=== PATIENT | male | born 1970 | race Caucasian/White ===

== ENCOUNTER 2020-08-07 19:48 | Emergency (ER) | payer OTHER, BC, SELFPAY ==
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
[2020-08-07 19:50] VITALS: RESP 17
[2020-08-07 19:53] VITALS: BP 143/89; PULSE 88; RESP 18; TEMP 36.6; O2SAT 98
[2020-08-07 20:28] LABS: Glucose Point of Care 124 (65-105)
[2020-08-07] MEDS: diazePAM INJ (*CRX) 10 MG/2 ML SYRINGE 5 MG IV PUSH (20:44)
[2020-08-07] MEDS: KETOROLAC 15 MG/ML VIAL (*BKC) IV PUSH (20:46)
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
[2020-08-07 22:22] VITALS: BP 112/75; PULSE 80; RESP 17; O2SAT 97
== END 2020-08-07 22:20 | disposition home or self-care (01) ==
PROVIDERS: Emergency Provider Emergency Medicine
DX: S39.012A Strain of muscle, fascia and tendon of lower back, initial encounter (principal); I25.10 Atherosclerotic heart disease of native coronary artery without angina pectoris; I10 Essential (primary) hypertension; E11.9 Type 2 diabetes mellitus without complications; Z79.4 Long term (current) use of insulin; Z87.891 Personal history of nicotine dependence; V49.40XA Driver injured in collision with unspecified motor vehicles in traffic accident, initial encounter
CPT/HCPCS: 72131; 82948; 96374; 96375; 99284; J1885; J3360

== ENCOUNTER 2021-05-14 11:17 | Observation (INO) | payer BC, SELFPAY ==
[2021-05-14] VITALS (12 sets, daily range): BP systolic 113–150; BP diastolic 65–100; PULSE 59–88; RESP 12–20; TEMP 36–36.6; O2SAT 97–99; BMI 35.0
--- NOTE | ~2021-05-14 | XR_ITS ---
XR chest 2V DATE: 05/14/2021 11:33 INDICATION: Mid chest pain TECHNIQUE: PA and lateral views COMPARISON: 06/02/2018 two-view chest FINDINGS: Normal heart size. No hilar or mediastinal enlargement. No pulmonary infiltrate or consolidation, pleural effusion or pulmonary vascular congestion or pneumo thorax. Degenerative spurring of the thoracic spine. IMPRESSION: No active cardiopulmonary disease Reviewed, dictated and finalized at location [facility].
--- NOTE | ~2021-05-14 | NM_ITS ---
EXAMINATION: NM los stress w perfusion DATE: 05/15/2021 14:35 INDICATION: Coronary artery disease. Chest pain. TECHNIQUE: Rest images were obtained following intravenous administration of 10.8 mCi Tc99m tetrofosm in (Myoview). The patient was infused intravenously with Lexiscan (Regadenoson). Then, 33.2 mCi Tc99m tetrofosmin (Myoview) was administered intravenously, and stress images were obtained. Data was jairo nstructed into short axis and horizontal and vertical long axis SPECT images. Gated SPECT images were also obtained. COMPARISON: None. FINDINGS: There is no definite reversible or fixed perfusion abnormality to suggest ischemia or infar ction. There is normal left ventricular chamber size, wall motion and ejection fraction. Left ventr icular ejection fraction measures >70%. IMPRESSION: 1. Normal myocardial perfusion at rest and during stress. 2. Left ventricular ejection fraction measuring >70%. Reviewed, dictated and finalized at location [facility].
--- NOTE | 2021-05-14 11:18 | ECG_ITS ---
Measurements Intervals [place] Rate: 84 P: 24 NC: 164 QRS: -9 QRSD: 89 T: -9 QT: 345 QTc: 410 Interpretive Statements SINUS RHYTHM BORDERLINE R WAVE PROGRESSION, ANTERIOR LEADS INFERIOR INFARCT, AGE INDETERMINATE BASELINE ARTIFACT- I, III, AVL ABNORMAL ECG Electronically Signed On 05-14-2021 16:23:13 CDT by Alfa Kay D.O.
[2021-05-14 11:36] LABS: Basophils Absolute Auto 0.1 K/mm3 (0.0-0.1); Basophils Percent Auto 0.6 % (0.2-1.2); Eosinophils Absolute Auto 0.2 K/mm3 (0-0.3); Eosinophils Percent Auto 2.5 % (0-4.4); Hematocrit 51.3 % (42.0-52.0); Hemoglobin 17.1 g/dL (14.0-18.0); Immature Granulocyte Absolute 0.06 K/mm3 (0.00-0.031); Immature Granulocyte Percent A 0.8 % (0-0.5); Lymphocytes Absolute Auto 1.99 K/mm3 (0.9-3.2); Lymphocytes Percent Auto 25.2 % (18.3-44.2); Mean Corpuscular HGB Conc 33.3 g/dl (32-36); Mean Corpuscular Hemoglobin 29.9 pg (26-34); Mean Corpuscular Volume 89.7 fl (80-100); Mean Platelet Volume 10.5 fl (7.4-10.4); Monocytes Absolute Auto 0.5 K/mm3 (0.1-0.6); Monocytes Percent Auto 6.5 % (2.6-8.5); Neutrophils Absolute Auto 5.1 K/mm3 (1.3-6.7); Neutrophils Percent Auto 64.4 % (45.5-73.1); Platelet Count Result 223 k/mm3 (150-375); Red Blood Count 5.72 M/mm3 (4.6-6.20); Red Cell Distribution Width 12.6 % (11.5-14.5); White Blood Count 7.9 K/mm3 (4.5-10.0)
[2021-05-14 11:45] LABS: INR 0.8; Prothrombin Time 11.3 Seconds (11.1-14.7)
[2021-05-14 11:46] LABS: Partial Thromboplastin Time 25.3 SECONDS (22.3-36.8)
[2021-05-14 11:48] LABS: Anion Gap 9 mmol/L (8-16); Blood Urea Nitrogen 19 mg/dL (9-20); Calcium 10.4 mg/dL (8.4-10.2); Carbon Dioxide 25 mmol/L (22-30); Chloride 103 mmol/L (98-107); Estimated CRCL calculation 144 ml/min; Estimated Glomerular Filt Rate > 60; Glucose 151 mg/dL (65-110); Potassium 4.7 mmol/L (3.4-5.0); Sodium 137 mmol/L (137-145)
[2021-05-14 12:00] LABS: Troponin I < 0.012 ng/mL (0.000-0.034)
--- NOTE | 2021-05-14 14:33 | ED.CHESTPAIN ---
HPI - Chest Pain General Chief Complaint: Chest Pain Stated Complaint: chest pain Time Seen by Provider: 05/14/21 14:19 Source: patient and RN notes reviewed Mode of arrival: ambulatory History of Present Illness HPI narrative: Patient is 50 years old white male presented to the ED with the burning sensation retrosternally started 2 days ago, comes with movement, get better at rest, classic nitroglycerin sublingual. Earlier today the pain was 8 out of 10 while moving furniture, currently 3 out of 10. Patient denies any fever, chills, nausea, vomiting, shortness of breath, radiation of pain. History of diabetes, hypertension, hyperlipidemia, 3 coronary stents, patient does not smoke or drink or uses drugs. Patient is fully vaccinated for COVID-19. Related Data Home Medications Medication Instructions Recorded Confirmed dapagliflozin [Farxiga] 10 mg PO DAILY 08/07/20 insulin aspart U-100 [Novolog 30 unit SUBCUT BID 08/07/20 Flexpen U-100 Insulin] metformin 1,000 mg PO BID 08/07/20 08/07/20 clopidogrel [Plavix] 75 mg PO DAILY 05/14/21 escitalopram oxalate 10 mg PO DAILY 05/14/21 lisinopril 40 mg PO DAILY 05/14/21 Allergies Allergy/AdvReac Type Severity Reaction Status Date / Time No Known Allergies Allergy Unknown Verified 05/14/21 11:18 Review of Systems Review of Systems: Narrative: CONSTITUTIONAL: Denies fever, chills, or sweats. EYES: Denies visual changes, redness, or discharge. ENT: Denies rhinorrhea, congestion, sore throat, or otalgia. CARDIOVASCULAR: Denies chest pain, palpitations, or edema. RESPIRATORY: Denies cough or dyspnea. GASTROINTESTINAL: Denies abdominal pain, nausea, vomiting, or diarrhea. GENITOURINARY: Denies dysuria or hematuria. SKIN: Denies rash or itching. MUSCULOSKELETAL: Denies back pain, joint pain, or myalgia. NEUROLOGIC: Denies headache, numbness, or weakness. PSYCHIATRIC: Denies anxiety or depression. [facility] Past Medical History Medical History Coronary artery disease Diabetes Hypertension Surgical History Surgical History History of percutaneous coronary intervention Social History Social History Smoking status: Former smoker Gender identity (if verbalized by the patient): Male Exam Narrative: Exam Narrative: General appearance: Well-developed, well-nourished Skin: Normal color Head: Normocephalic, nontraumatic Eyes: Clear conjunctiva ENT: Oropharynx normal, ears normal, nose normal Neck: Supple, nontender Chest and respiratory: Airway patent, no respiratory distress, no accessory muscle use Heart: Regular rate/rhythm Abdomen: Soft, nontender, no organomegaly, quiet bowel sounds Vascular: Normal peripheral pulses, normal capillary refill. 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, no gross motor deficit Course Course Emergency Course: Stable, improving Consultations Consultation #1: DR ESPOSITO, admit to hospitalist, no Lovenox at this time Date: 05/14/21 Time: 14:45 Vital Signs Vital signs: Vital Signs Temperature 36.3 C L 05/14/21 11:23 Pulse Rate 88 05/14/21 11:23 Respiratory Rate 20 05/14/21 11:23 Blood Pressure 150/100 H 05/14/21 11:23 Pulse Oximetry 99 05/14/21 11:23 Temperature 36.3 C L 05/14/21 11:23 Pulse Rate 73 05/14/21 13:50 Respiratory Rate 16 05/14/21 13:50 Blood Pressure 150/98 H 05/14/21 13:50 Pulse Oximetry 98 05/14/21 13:50 MDM - Chest Pain MDM Narrative Medical decision making narrative: Acute
[2021-05-14 14:39] LABS: Troponin I < 0.012 ng/mL (0.000-0.034)
[2021-05-14] MEDS: ASPIRIN 81 MG CHEWABLE TABLET 324 MG PO (14:56)
[2021-05-14] MEDS: METOPROLOL TARTRATE 50 MG TAB 25 MG PO (14:57)
[2021-05-14] MEDS: ONDANSETRON INJ 4 MG/2 ML VIAL IV PUSH (15:01)
[2021-05-14] MEDS: NITROGLYCERIN OINTMENT 1 INCH DOSE TRANSDERM (15:01)
--- NOTE | 2021-05-14 16:00 | PM.IMHP ---
H&P: HPI History of Present Illness Date/Time: 05/14/21 16:00 Chief Complaint: Chest pain. Narrative: This is a 50-year-old male with history of coronary artery disease status post [place] in 2001 status post PCI to the right coronary artery, hypertension, dyslipidemia, and type 2 diabetes mellitus who presented to the emergency department earlier today via private vehicle from home for evaluation of chest pain. A couple of days ago he began experiencing chest discomfort with activity, initially while moving furniture however it is now occurring when he is even up walking. He describes a burning and squeezing discomfort in the midsternal chest region. It does not necessarily radiate however he does mention some mild discomfort in the left side of his neck though it sounds like that has been ongoing for much longer than the last 2 days. Nitroglycerin has helped somewhat and the pain will maria del rosario with rest. Associated symptoms include perhaps mild shortness of breath. No nausea, vomiting, or sweats. He has not had pleuritic pain, palpitations, orthopnea, PND, or lower extremity edema. Patient denies that this discomfort is similar to GERD and he is certain is not due to an muscle strain. He is a patient of Dr. Lorenzo and has an upcoming appointment I think within the next month or so. Last stress test was around 2017 and was unremarkable per patient report. Review of Systems Review of Systems: Narrative: Twelve systems were reviewed with pertinent positives and negatives as per HPI. No fever, chills, or sweats. No recent cold or flu symptoms. no blurry vision, polydipsia, or polyuria. He typically will get symptoms of hypoglycemia of his glucose is below 100 and pretty significant symptoms when it reaches around 80. Except as documented, all other systems were reviewed and are negative. [facility] Past Medical History Medical History (Updated 05/14/21 @ 21:01 by Radha Fish PA-C) Anxiety Coronary artery disease Myocardial infarction in 2001 status post PCI to the right coronary artery. Patient of Dr. Bran Lorenzo. Dyslipidemia Hypertension Hypothyroidism Psoriasis Type 2 diabetes mellitus Viral myocarditis Surgical History Surgical History (Updated 05/14/21 @ 21:01 by Radha Fish PA-C) History of arthroscopy of left knee History of inguinal hernia repair History of percutaneous coronary intervention (2001) PCI to the right coronary artery. History of ventral hernia repair Family History Family History (Updated 05/14/21 @ 21:02 by Radha Fish PA-C) Mother Diabetes mellitus Sibling Acute myocardial infarction Social History Social History (Updated 05/14/21 @ 21:03 by Radha Fish PA-C) Social History: The patient lives with his girlfriend in [place]. 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 13 pack-year smoking history, quit about 8 years ago. No alcohol or illicit substance abuse. He designates his mother, Sera Perez, as his surrogate decision maker and he wishes to be a full code. Meds Home Medications and Allergies Home Medications Medication Instructions Recorded Confirmed Type cyclobenzaprine 10 mg PO TID PRN #20 tablet 08/07/20 05/14/21 Rx dapagliflozin [Farxiga] 10 mg PO DAILY 08/07/20 05/14/21 History insulin aspart U-100 [Novolog See Protocol SUBCUT TIDWMEAL 08/07/20 05/14/21 History Flexpen U-100 Insulin] metformin 1,000 mg PO BID 08/07/20 05/14/21 History atorvastatin 80 mg PO HS 05/14/21 05/14/21 History azelastine 1 drp OPHTHALMIC (EYE) PRN PRN 05/14/21 05/14/21 History clopidogrel [Plavix] 75 mg PO DAILY 05/14/21 05/14/21 History escitalopram oxalate 10 mg PO DAILY 05/14/21 05/14/21 History levothyroxine [Euthyrox] 125 mcg PO 0600 05/14/21 05/14/21 History lisinopril 40 mg PO DAILY 05/14/21 05/14/21 History Allergies Allergy/AdvReac Type Severity Reaction Status Date / Time No Known Allergies Allergy Unknown Verified 05/14/21 11:18 Vital Signs Vital Signs - 24 hr 05/14
--- NOTE | 2021-05-14 18:44 | ADMGEN ---
This patient, Girish Perez, was admitted to IMU Room 209-. Patient/family oriented to hospital policies and general routines including ID bracelet, bed and alarms, visiting hours, pain management, procedures, bathroom and other care routines, personal items, smoking policy, room service/diet, and visiting hours. Information on how to activate the Rapid Response Team has been discussed. Patient/Family are encouraged to report perceived risks to care and to ask questions if they do not understand what they are told or what they should do.
[2021-05-14 18:52] LABS: Troponin I < 0.012 ng/mL (0.000-0.034)
[2021-05-15] VITALS (10 sets, daily range): BP systolic 114–143; BP diastolic 69–81; PULSE 57–89; RESP 14–18; TEMP 36.3–37.1; O2SAT 97–99
--- NOTE | 2021-05-15 | EST_ITS ---
Patient Info Name: Girish Perez Age: 50 years : 1970 Gender: Male Ht: 72 in Wt: 255 lbs BSA: 2.46 m2 Exam Date: 05/15/2021 12:56 PM Exam Location: [facility] Stress Patient Status: Outpatient Admit Date: 05/14/2021 Staff Ordering Physician: Jose Luis Ashby MD Attending Provider: Christopher Mckeon MD Exercise Technologist: Fide Crum RDCS Exercise Physician: Jose Luis Ashby MD Exam Type: CA stress los w NM Study Info Indications R07.9 - Chest pain, unspecified A regadenoson stress test was performed. Summary 1. Normal sinus rhythm - normal ECG. 2. No abnormal ST/T wave changes with exercise. 3. Clinically and electrocardiographically unremarkable Lexiscan stress test. 4. Myocardial perfusion imaging exam to be reported by the Radiology Department. Protocol: Lexiscan Stress ECG Details Stage: REST Duration (min): 1 min : 44 sec HR (bpm): 75 SBP (mmHg): 120 DBP (mmHg): 71 Stage: REST Duration (min): 7 min : 5 sec HR (bpm): 73 SBP (mmHg): 120 DBP (mmHg): 71 Stage: STAGE 1 Duration (min): 0 min : 59 sec HR (bpm): 98 SBP (mmHg): 125 DBP (mmHg): 65 Stage: RECOVERY Duration (min): 1 min : 0 sec HR (bpm): 86 SBP (mmHg): 126 DBP (mmHg): 67 Stage: RECOVERY Duration (min): 2 min : 0 sec HR (bpm): 80 SBP (mmHg): 126 DBP (mmHg): 67 Stage: RECOVERY Duration (min): 3 min : 0 sec HR (bpm): 90 SBP (mmHg): 129 DBP (mmHg): 77 Stage: RECOVERY Duration (min): 3 min : 3 sec HR (bpm): 88 SBP (mmHg): 129 DBP (mmHg): 77 Rest HR: 73 bpm Peak HR: 98 bpm Rest Sys BP: 120 mmHg Peak Sys BP: 129 mmHg Max Pred HR: 168 bpm % Max Pred HR: 58 % Target HR: 143 bpm Max RPP: 12,642 bpm*mmHg Termination Reason: Completed protocol Cardiac Symptoms: None Total Time: 1 min : 0 sec Rest Barriga BP: 71 mmHg Peak Barriga BP: 77 mmHg Total Dose: 0.4 mg Resting ECG Normal sinus rhythm - normal ECG. Stress ECG No abnormal ST/T wave changes with exercise. Report Signatures
[2021-05-15] MEDS: ATORVASTATIN 40 MG TABLET 80 MG PO (00:25)
[2021-05-15] MEDS: NITROGLYCERIN SL 0.4 MG TABLET SUBLINGUAL ×2 (00:49→08:26)
[2021-05-15 05:50] LABS: Alanine Aminotransferase 37 U/L (4-50); Alkaline Phosphatase 55 U/L (38-126); Anion Gap 7 mmol/L (8-16); Aspartate Amino Transferase 35 U/L (17-59); Bilirubin,Total 1.9 mg/dL (0.2-1.3); Blood Urea Nitrogen 16 mg/dL (9-20); Calcium 8.9 mg/dL (8.4-10.2); Carbon Dioxide 27 mmol/L (22-30); Chloride 102 mmol/L (98-107); Estimated CRCL calculation 161 ml/min; Estimated Glomerular Filt Rate > 60; Glucose 150 mg/dL (65-110); Magnesium 1.8 mg/dL (1.6-2.3); Potassium 3.9 mmol/L (3.4-5.0); Sodium 136 mmol/L (137-145)
--- NOTE | 2021-05-15 06:00 | ECG_ITS ---
Measurements Intervals [place] Rate: 67 P: 36 AL: 157 QRS: -8 QRSD: 98 T: -9 QT: 398 QTc: 421 Interpretive Statements SINUS RHYTHM INFERIOR INFARCT, AGE INDETERMINATE ABNORMAL ECG Electronically Signed On 05-15-2021 10:47:01 CDT by Alfa Kay D.O.
--- NOTE | 2021-05-15 08:12 | PM.IMPN ---
Progress Note: A&P Assessment and Plan (1) Chest pain: Qualifiers: Chest pain type: unspecified Qualified Code(s): R07.9 - Chest pain, unspecified Code(s): R07.9 - Chest pain, unspecified Status: Acute (2) Coronary artery disease: Code(s): I25.10 - Atherosclerotic heart disease of kaibab coronary artery without angina pectoris Status: Chronic (3) Hypertension: Code(s): I10 - Essential (primary) hypertension Status: Chronic (4) Dyslipidemia: Code(s): E78.5 - Hyperlipidemia, unspecified Status: Acute (5) Type 2 diabetes mellitus: Code(s): E11.9 - Type 2 diabetes mellitus without complications Status: Acute (6) Hypothyroidism: Code(s): E03.9 - Hypothyroidism, unspecified Status: Acute Additional Plan The patient presents today with exertional chest pain. He has rule out for acute coronary syndrome by serial troponins and his EKG do not show any acute ST segment changes today. Given his premature coronary artery disease he is being admitted overnight for cardiology consultation. Continue clopidogrel and statin. I do not see that he is on a beta-cee. Blood pressures were reviewed and they were a bit elevated on arrival but have improved. We will continue with his antihypertensives and monitor those closely. I do not see a recent A1c thus will check 1 in a.m. Continue Farxiga and initiate sliding scale insulin. Hold metformin in case he requires a procedure. Check TSH and continue levothyroxine. Subjective Date/time seen: 05/15/21 08:12 Exam Narrative: Exam Narrative: General: Well-developed male in the semi-Farrar position in bed in no distress. Weight: 117.2 kg. BMI: 35.0. HEENT: Normocephalic, atraumatic. PERRL, EOMI. Sclerae anicteric. Oral mucosa moist. Oropharynx clear. Neck: Supple. No JVD. Patient reports some discomfort along the left sternal class hyoid muscle though there is no tenderness to palpation there. No bruits or thyromegaly. Respiratory: Lungs are clear to auscultation bilaterally. Cardiovascular: Regular rate and rhythm with S1-S2. Chest: No tenderness to palpation about the chest wall. Gastrointestinal: Abdomen is soft, nontender, and nondistended with positive bowel sounds. Skin: Warm and dry. Evidence of chronic venous stasis with faint skin changes of the lower legs. Scattered psoriatic plaques on the forearms, elbows, and knees. Extremities: No cyanosis, clubbing, or edema. Radial and pedal pulses intact. Negative Saira sign bilaterally. Neurological: Alert. Cranial nerves 2-12 are grossly intact. No gross focal deficits to casual conversation. Psychiatric: Pleasant and cooperative with normal mood and affect. Judgment and insight intact. Objective Data Vital Signs Vital Signs: Vital Signs - 24 hr 05/14/21 11:23 05/14/21 13:50 05/14/21 14:57 Temperature 36.3 C L Pulse Rate 88 73 74 Respiratory Rate 20 16 Blood Pressure 150/100 H 150/98 H Pulse Oximetry 99 98 05/14/21 15:04 05/14/21 17:45 05/14/21 17:46 Temperature Pulse Rate 72 67 71 Respiratory Rate 12 12 Blood Pressure 147/82 H 121/72 Pulse Oximetry 99 98 05/14/21 18:26 05/14/21 18:44 05/14/21 19:44 Temperature 36.0 C L 36.6 C Pulse Rate 66 60 65 Respiratory Rate 15 18 18 Blood Pressure 113/66 130/77 130/77 Pulse Oximetry 98 98 97 05/14/21 20:00 05/14/21 22:00 05/14/21 23:54 Temperature 36.4 C Pulse Rate 63 59 L 60 Respiratory Rate 18 Blood Pressure 126/65 Pulse Oximetry 97 99 05/15/21 00:00 05/15/21 02:00 05/15/21 04:00 Temperature Pulse Rate 62 60 58 L Respiratory Rate Blood Pressure Pulse Oximetry 99 05/15/21 04:50 05/15/21 06:00 Temperature 36.3 C L Pulse Rate 68 57 L Respiratory Rate 18 Blood Pressure 114/69 Pulse Oximetry 97 Intake/Output Intake/Output: Intake & Output 05/12/21 05/13/21 05/14/21 05/15/21 23:59 23:59 23:59 23:59 Intake Total 100 240
[2021-05-15] MEDS: CLOPIDOGREL BISULFATE 75 MG TABLET PO (08:23)
[2021-05-15] MEDS: LEVOTHYROXINE SODIUM 125 MCG TABLET PO (08:23)
[2021-05-15] MEDS: lisinopriL 20 MG TABLET 40 MG PO (08:23)
[2021-05-15] MEDS: ESCITALOPRAM OXALATE 10 MG TABLET PO (08:23)
[2021-05-15] MEDS: ASPIRIN 81 MG CHEWABLE TABLET PO (08:26)
[2021-05-15 08:33] LABS: Glucose Point of Care 219 mg/dl (65-105)
--- NOTE | 2021-05-15 10:26 | PM.CNCAR ---
Assessment and Plan Additional Plan this is a 50-year-old man with known coronary disease as detailed above he has symptoms that are rather concerning for exertional angina beginning middle to late part of last week. He presents for evaluation. Fortunately his electrocardiogram and biomarkers are negative. 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 In this situation I recommended a follow-up coronary angiogram. Patient understands this but is not desirous of having an angiogram today. He would rather evaluate this noninvasively 1st. I told him that since his ECGs and biomarkers are negative that is not unreasonable. We will schedule Lexiscan nuclear stress test for today and provide further recommendations pending those findings. Jose Luis Ashby MD [facility] History of Present Illness History of Present Illness Consult date/time: 05/15/21 10:26 Consult reason: chest pain Reason For Visit: Chest pain Narrative: this is a very pleasant 50-year-old man I am seeing at the request of the hospitalist because of chest pain. The patient is unknown to me prior to this encounter but he is known to have coronary disease and follows in our office with Dr. Lorenzo. the patient states he has been having episodes of chest pain with modest activity since about of last week. He notices that if he rests his symptoms are better there also relieved with nitroglycerin. He states the symptom as a burning-like central chest discomfort that is not associated with any nausea vomiting shortness of breath or diaphoresis he had some of the symptoms yesterday that were worse after he was moving some furniture so he came to the emergency room for evaluation. His ECG and biomarkers x3 sets are negative. In this setting I am seeing him in consultation. He is not having any symptoms of orthopnea PND edema palpitations or syncope. He has a history of coronary artery disease with previous PCI. Apparently presented in a initially in July of 2014 with acute coronary syndrome and had a high-grade right coronary artery lesion stented. Following that he had recurrent symptoms and had interventional revascularization of his right coronary again and his circumflex in a subsequent admission. He has been followed by Dr. mejia for a few years after that will being seen in annual basis the last couple of years he has not had any complaints that are compatible with ischemia and has been doing well. As it happens his upcoming annual appointment is next week. His medical regimen consists of dual anti-platelet therapy with aspirin and clopidogrel as well as atorvastatin and lisinopril. Review of Systems Constitutional: Constitutional: Reports no additional constitutional complaints Eyes: Eyes: Reports no additional eye complaints ENT: Reports system reviewed and no additional complaints, except as documented Cardiovascular: Cardiovascular: Reports as per HPI Respiratory: Respiratory: Reports no additional respiratory complaints Gastrointestinal: Gastrointestinal: Reports no additional gastrointestinal complaints Musculoskeletal: Musculoskeletal: Reports no additional musculoskeletal complaints Integumentary/Breasts: Skin/Breast: Reports system reviewed and no additional complaints, except as docu Neurologic: Reports system reviewed and no additional complaints, except as documented Psychiatric: Psychiatric: Reports no additional psychiatric complaints Endocrine: Endocrine: Reports no additional endocrine complaints Hematologic/Lymphatic: Hematologic/Lymphatic: Reports no additional hematologic/lymphatic complaints Allergic/Immunologic: Allergic/Immunologic: Reports no additional allergic/immunologic complaints PMFSH Past Medical History Medical
[2021-05-15 10:47] LABS: Hemoglobin A1C 6.7 % (<5.7)
[2021-05-15 11:52] LABS: Glucose Point of Care 182 mg/dl (65-105)
--- NOTE | 2021-05-15 11:55 | PC.NURSE ---
Pt to stress lab
--- NOTE | 2021-05-15 14:06 | PC.NURSE ---
Pt returned from stress test
--- NOTE | 2021-05-15 15:24 | PM.DS ---
DS: Admitting Diagnosis Admitting Diagnosis Chest pain rule out acute coronary syndrome CAD hypertension hyperlipidemia diabetes mellitus hypothyroidism DS: Discharge Diagnosis Discharge Diagnosis (1) Chest pain: Qualifiers: Chest pain type: unspecified Qualified Code(s): R07.9 - Chest pain, unspecified Code(s): R07.9 - Chest pain, unspecified Status: Acute Assessment and Plan: his EKG did not show any acute coronary syndrome. Serial troponin were negative. Telemetry did not show any acute Arrhythmia. He was evaluated by ceo & founder who has recommended a cardiac catheterization but he wants a noninvasive test 1st. He had a stress test which is reported as negative for acute myocardial ischemia. Cardiology clears him for discharge and he will continue his cardiac regimen and will follow with his ceo & founder as an outpatient. (2) Coronary artery disease: Code(s): I25.10 - Atherosclerotic heart disease of [place] coronary artery without angina pectoris Status: Chronic Assessment and Plan: Stress test is negative for any reversible myocardial ischemia. Cardiology recommendations appreciated. He is clear for discharge. He will continue his cardiac regimen with Plavix, lisinopril and Lipitor. (3) Hypertension: Code(s): I10 - Essential (primary) hypertension Status: Chronic Assessment and Plan: continue lisinopril at his home dose. His blood pressure remained stable while he was hospitalized here. (4) Dyslipidemia: Code(s): E78.5 - Hyperlipidemia, unspecified Status: Acute Assessment and Plan: Continue Lipitor at his home dose (5) Type 2 diabetes mellitus: Code(s): E11.9 - Type 2 diabetes mellitus without complications Status: Acute Assessment and Plan: Continue his home regimen with insulin sliding scale and metformin. (6) Hypothyroidism: Code(s): E03.9 - Hypothyroidism, unspecified Status: Acute Assessment and Plan: Continue levothyroxine. DS: Summary Hospital Course Reason for hospitalization: Chest pain Hospital Course: as above Time Spent with Patient Time attestation: Total time spent providing and/or coordinating discharge services: Exam Narrative: Exam Narrative: General awake and alert not in acute distress Eyes PERRLA normal conjunctiva no discharge HEENT no discharge Neck supple dull tenderness no deformity JVD not elevated CVS S1-S2 no murmur Respiratory no wheezes or crepitation respiration nonlabored GI soft nontender nondistended no hepatosplenomegaly Chest wall no tenderness or deformity Back nontender no deformity [employer] alert oriented x3 and grossly nonfocal neurological exam Psychiatric cooperative appropriate mood and affect Musculoskeletal normal range of motion or joint swelling no rashes Extremities no edema DS: Data Data Completed and Pending Labs on day of discharge: Labs from last 24 hours 05/15/21 05/15/21 05/15/21 11:18 08:30 04:40 Sodium Potassium Chloride Carbon Dioxide Anion Gap BUN Creatinine Estim Creat Clear Calc Estimated GFR Glucose POC Capillary Glucose 182 H 219 H Hemoglobin A1c Calcium Magnesium Total Bilirubin AST ALT Alkaline Phosphatase Troponin I Total Protein Albumin TSH (Reflex) 3.060 05/15/21 05/15/21 05/14/21 04:40 04:40 18:27 Sodium 136 L Potassium 3.9 Chloride 102 Carbon Dioxide 27 Anion Gap 7 L BUN 16 Creatinine 0.60 L Estim Creat Clear Calc 161 Estimated GFR > 60 Glucose 150 H POC Capillary Glucose Hemoglobin A1c 6.7 H Calcium 8.9 Magnesium 1.8 Total Bilirubin 1.9 H AST 35 ALT 37 Alkaline Phosphatase 55 Troponin I < 0.012 Total Protein 7.0 Albumin 4.0 TSH (Reflex) Discharge Plan Discharge Attending physi
== END 2021-05-15 16:00 | disposition home or self-care (01) ==
LOC: ANHED 14:37 → ANHIMU 05-15 15:23
PROVIDERS: Emergency Medicine; Physician Assistant; Admitting Provider Internal Medicine; Emergency Provider Emergency Medicine; PCP Family Medicine; Visit Provider Internal Medicine Critical Care Medicine
DX: R07.9 Chest pain, unspecified (principal); I25.10 Atherosclerotic heart disease of native coronary artery without angina pectoris; I10 Essential (primary) hypertension; E11.9 Type 2 diabetes mellitus without complications; I25.2 Old myocardial infarction; E78.5 Hyperlipidemia, unspecified; R06.02 Shortness of breath; L40.9 Psoriasis, unspecified; E03.9 Hypothyroidism, unspecified; Z87.891 Personal history of nicotine dependence; Z79.4 Long term (current) use of insulin; Z79.02 Long term (current) use of antithrombotics/antiplatelets; Z79.84 Long term (current) use of oral hypoglycemic drugs
CPT/HCPCS: 36415; 71046; 78452; 80048; 80053; 82948; 83036; 83735; 84443; 84484; 85025; 85610; 85730; 93005; 93017; 96374; 96375; 99285; A9270; A9502; G0378; J0131; J2405; J2785

== ENCOUNTER 2021-05-19 12:28 | Inpatient (IN) | payer BC, SELFPAY ==
[2021-05-19] VITALS (12 sets, daily range): BP systolic 99–129; BP diastolic 58–78; PULSE 62–80; RESP 10–18; TEMP 36.2–36.4; O2SAT 95–100; BMI 34.2
--- NOTE | ~2021-05-19 | XR_ITS ---
EXAMINATION: XR chest 2V 05/19/2021 12:45 INDICATION: Midline chest burning PROCEDURE: 2 view chest COMPARISON: No prior studies for comparison. FINDINGS: The lungs are clear. The cardiomediastinal silhouette is within normal limits. There are no pleural effusions. There is no pneumothorax suspected. IMPRESSION: 1: NO ACUTE CARDIOPULMONARY DISEASE. Reviewed, dictated and finalized at location A.
--- NOTE | 2021-05-19 12:31 | ECG_ITS ---
Measurements Intervals [place] Rate: 69 P: 37 IL: 162 QRS: -16 QRSD: 97 T: -2 QT: 377 QTc: 404 Interpretive Statements SINUS RHYTHM INFERIOR INFARCT, AGE INDETERMINATE BASELINE ARTIFACT- II, III, AVR, AVF, V1, V3-V6 ABNORMAL ECG Electronically Signed On 05-19-2021 15:35:12 CDT by Alfa Kay D.O.
--- NOTE | 2021-05-19 12:39 | PC.NURSE ---
Patient to radiology at this time
--- NOTE | 2021-05-19 12:54 | ED.GENADULT ---
HPI - General Adult General Chief complaint: Chest Pain Stated complaint: Chest pain Time Seen by Provider: 05/19/21 12:38 History of Present Illness HPI narrative: Patient is a 50-year-old male who presents ER with chest pain. Burning central pain without radiation. Occurs anytime he is exerting himself and goes away with rest. Recently hospitalized and had a negative stress test. He was offered cardiac catheterization given his history of previous percutaneous intervention but opted for conservative management at the time. Feels symptoms are not improving and thus came back to the ER. He sees Dr. Lorenzo with the [facility]. Patient reports mild nausea today but no additional symptoms. Related Data Home Medications Medication Instructions Recorded Confirmed Farxiga 10 mg PO DAILY 08/07/20 05/19/21 insulin aspart U-100 [Novolog See Protocol SUBCUT TIDWMEAL 08/07/20 05/19/21 Flexpen U-100 Insulin] metformin 1,000 mg PO BID 08/07/20 05/19/21 atorvastatin 80 mg PO HS 05/14/21 05/19/21 azelastine 1 drp OPHTHALMIC (EYE) PRN PRN 05/14/21 05/19/21 clopidogrel [Plavix] 75 mg PO DAILY 05/14/21 05/19/21 escitalopram oxalate 10 mg PO DAILY 05/14/21 05/19/21 levothyroxine [Euthyrox] 125 mcg PO 0600 05/14/21 05/19/21 lisinopril 40 mg PO DAILY 05/14/21 05/19/21 Allergies Allergy/AdvReac Type Severity Reaction Status Date / Time No Known Allergies Allergy Unknown Verified 05/19/21 12:52 Review of Systems Review of Systems: All systems reviewed & are unremarkable except as noted in HPI and below Constitutional: Constitutional: Denies chills, Denies fever(s) and Denies weakness ENT: Denies nasal congestion and Denies sore throat Cardiovascular: Cardiovascular: Reports chest pain, Denies rapid heart rate and Denies radiating jaw, neck or arm pain Respiratory: Respiratory: Denies cough and Denies dyspnea Gastrointestinal: Gastrointestinal: Denies abdominal pain, Reports nausea and Denies vomiting [facility] Past Medical History Medical History (Updated 05/19/21 @ 18:30 by Joseph Aguilar MD) Anxiety Coronary artery disease Myocardial infarction in 2001 status post PCI to the right coronary artery. Patient of Dr. Bran Lorenzo. Dyslipidemia Hypertension Hypothyroidism Psoriasis Type 2 diabetes mellitus Viral myocarditis Surgical History Surgical History (Updated 05/14/21 @ 21:01 by Radha Fish PA-C) History of arthroscopy of left knee History of inguinal hernia repair History of percutaneous coronary intervention (2001) PCI to the right coronary artery. History of ventral hernia repair Family History Family History (Updated 05/15/21 @ 02:13 by Fani Ayala RN) Mother Diabetes mellitus Heart disease Sibling Acute myocardial infarction Diabetes mellitus Heart disease Father Acute myocardial infarction Heart disease Social History Social History (Updated 05/14/21 @ 21:03 by Radha Fish PA-C) Social History: The patient lives with his girlfriend in [place]. 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 13 pack-year smoking history, quit about 8 years ago. No alcohol or illicit substance abuse. He designates his mother, Sera Perez, as his surrogate decision maker and he wishes to be a full code. Smoking packs per day: 1 Smoking cigarettes per day: 20.0 Years smoked: 13 Smoking pack-years: 13.00 Smoking status: Former smoker Tobacco type: cigarettes Gender identity (if verbalized by the patient): Male Spiritual care concerns: No Exam Narrative: GENERAL: Well-appearing, well-nourished, and in no acute distress. HEAD: Normocephalic, atraumatic. EYES: PERRL and EOMI. CHEST: Clear to auscultation. No respiratory distress. HEART: Regular rate and rhythm. Normal peripheral pulses. ABDOMEN: Soft, nontender, nondistended. EXTREMITIES: Normal range of motion. No edema. SKIN: Warm, dry, no rash. NEURO: Alert and oriented x3. PSYCH: Normal mood and affect. Co
[2021-05-19 13:35] LABS: Basophils Percent Auto 0.5 % (0.2-1.2); Eosinophils Absolute Auto 0.3 K/mm3 (0-0.3); Eosinophils Percent Auto 3.4 % (0-4.4); Hemoglobin 16.8 g/dL (14.0-18.0); Immature Granulocyte Absolute 0.05 K/mm3 (0.00-0.031); Immature Granulocyte Percent A 0.7 % (0-0.5); Lymphocytes Absolute Auto 2.03 K/mm3 (0.9-3.2); Lymphocytes Percent Auto 26.9 % (18.3-44.2); Mean Corpuscular HGB Conc 33.6 g/dl (32-36); Mean Corpuscular Hemoglobin 29.7 pg (26-34); Mean Corpuscular Volume 88.5 fl (80-100); Mean Platelet Volume 10.6 fl (7.4-10.4); Monocytes Absolute Auto 0.6 K/mm3 (0.1-0.6); Monocytes Percent Auto 7.8 % (2.6-8.5); Neutrophils Absolute Auto 4.6 K/mm3 (1.3-6.7); Neutrophils Percent Auto 60.7 % (45.5-73.1); Platelet Count Result 204 k/mm3 (150-375); Red Blood Count 5.65 M/mm3 (4.6-6.20); Red Cell Distribution Width 12.4 % (11.5-14.5); White Blood Count 7.5 K/mm3 (4.5-10.0)
[2021-05-19 13:46] LABS: INR 0.9; Partial Thromboplastin Time 26.6 SECONDS (22.3-36.8); Prothrombin Time 12.1 Seconds (11.1-14.7)
[2021-05-19] MEDS: ASPIRIN 81 MG CHEWABLE TABLET 324 MG PO (13:50)
[2021-05-19 13:51] LABS: Anion Gap 11 mmol/L (8-16); Blood Urea Nitrogen 17 mg/dL (9-20); Carbon Dioxide 25 mmol/L (22-30); Chloride 100 mmol/L (98-107); Estimated CRCL calculation 165 ml/min; Estimated Glomerular Filt Rate > 60; Glucose 118 mg/dL (65-110); Potassium 4.2 mmol/L (3.4-5.0); Sodium 136 mmol/L (137-145)
[2021-05-19 14:05] LABS: Troponin I 0.274 ng/mL (0.000-0.034)
[2021-05-19] MEDS: HEPARIN SODIUM 5,000 UNITS/ML VIAL 4000 UNITS IV PUSH ×2 (14:34→20:57)
[2021-05-19] MEDS: HEPARIN SOD/D5W 100 UNITS/ML 25,000 UNITS/250 ML BAG 10 UNITS IV CONT (14:55)
--- NOTE | 2021-05-19 17:31 | PM.IMHP ---
H&P: HPI History of Present Illness Date/Time: 05/19/21 17:31 Chief Complaint: chest pain Narrative: Patient is a 50-year-old male who presents ER with chest pain. Burning central pain without radiation. Occurs anytime he is exerting himself and goes away with rest. Recently hospitalized and had a negative stress test. He was offered cardiac catheterization given his history of previous percutaneous intervention but opted for conservative management at the time. Feels symptoms are not improving and thus came back to the ER. He sees Dr. Lorenzo with the heart care group. Patient reports mild nausea today but no additional symptoms. [facility] Past Medical History Medical History (Updated 05/14/21 @ 21:01 by Radha Fish PA-C) Anxiety Coronary artery disease Myocardial infarction in 2001 status post PCI to the right coronary artery. Patient of Dr. Bran Lorenzo. Dyslipidemia Hypertension Hypothyroidism Psoriasis Type 2 diabetes mellitus Viral myocarditis Surgical History Surgical History (Updated 05/14/21 @ 21:01 by Radha Fish PA-C) History of arthroscopy of left knee History of inguinal hernia repair History of percutaneous coronary intervention (2001) PCI to the right coronary artery. History of ventral hernia repair Family History Family History (Updated 05/15/21 @ 02:13 by Fani Ayala RN) Mother Diabetes mellitus Heart disease Sibling Acute myocardial infarction Diabetes mellitus Heart disease Father Acute myocardial infarction Heart disease Social History Social History (Updated 05/14/21 @ 21:03 by Radha Fish PA-C) Social History: The patient lives with his girlfriend in [place]. 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 13 pack-year smoking history, quit about 8 years ago. No alcohol or illicit substance abuse. He designates his mother, Sera Perez, as his surrogate decision maker and he wishes to be a full code. Meds Home Medications and Allergies Home Medications Medication Instructions Recorded Confirmed Type Farxiga 10 mg PO DAILY 08/07/20 05/14/21 History cyclobenzaprine 10 mg PO TID PRN #20 tablet 08/07/20 05/14/21 Rx insulin aspart U-100 [Novolog See Protocol SUBCUT TIDWMEAL 08/07/20 05/14/21 History Flexpen U-100 Insulin] metformin 1,000 mg PO BID 08/07/20 05/14/21 History atorvastatin 80 mg PO HS 05/14/21 05/14/21 History azelastine 1 drp OPHTHALMIC (EYE) PRN PRN 05/14/21 05/14/21 History clopidogrel [Plavix] 75 mg PO DAILY 05/14/21 05/14/21 History escitalopram oxalate 10 mg PO DAILY 05/14/21 05/14/21 History levothyroxine [Euthyrox] 125 mcg PO 0600 05/14/21 05/14/21 History lisinopril 40 mg PO DAILY 05/14/21 05/14/21 History Allergies Allergy/AdvReac Type Severity Reaction Status Date / Time No Known Allergies Allergy Unknown Verified 05/19/21 12:52 Vital Signs Vital Signs - 24 hr 05/19/21 12:32 05/19/21 12:54 05/19/21 14:11 Temperature 97.2 F L Pulse Rate 66 66 67 Respiratory Rate 18 12 Blood Pressure 125/74 116/76 Pulse Oximetry 100 98 05/19/21 14:40 05/19/21 15:55 Temperature Pulse Rate 74 71 Respiratory Rate 12 12 Blood Pressure 128/68 117/71 Pulse Oximetry 100 98 H&P: Results Labs Labs: Short CBC 05/19/21 Range/Units 13:25 WBC 7.5 (4.5-10.0) K/mm3 Hgb 16.8 (14.0-18.0) g/dL Hct 50.0 (42.0-52.0) % Plt Count 204 (150-375) k/mm3 BMP 05/19/21 13:25 Sodium 136 L Potassium 4.2 Chloride 100 Carbon Dioxide 25 BUN 17 Creatinine 0.60 L Glucose 118 H Calcium 10.0 Cardiac Enzymes 05/19/21 05/19/21 Range/Units 13:25 15:45 Troponin I 0.274 H* 0.380 H* D (0.000-0.034) ng/mL Assessment and Plan Additional Plan This is a 50-year-old male with history of coronary artery disease status post PR in 2001 status post PCI to the right coronary artery, hypertension, dyslipidemia, and type 2 diabetes mellitus who presented to the emergency department earlier today v
--- NOTE | 2021-05-19 18:16 | ADMGEN ---
This patient, Girish Perez, was admitted to IMU Room 211-01 at 1812. Patient/family oriented to hospital policies and general routines including ID bracelet, bed and alarms, visiting hours, pain management, procedures, bathroom and other care routines, personal items, smoking policy, room service/diet, and visiting hours. Information on how to activate the Rapid Response Team has been discussed. Patient/Family are encouraged to report perceived risks to care and to ask questions if they do not understand what they are told or what they should do.
--- NOTE | 2021-05-19 18:18 | PM.IMHP ---
H&P: HPI History of Present Illness Date/Time: 05/19/21 18:18 Chief Complaint: Chest pain Narrative: Patient is a 50-year-old male who presents ER with chest pain which is retrosternal and radiates outward on his chest diffusely. The chest pain is exertional in nature and goes away with rest. He presented with similar chest pain last week and was evaluated by cardiology. He was offered cardiac catheterization given the history of previous PCI however he opted for conservative management. He had a stress test done which was unremarkable on that admission. He was then discharged home however he continued to have the symptoms and hence presents back to the ER today. Workup in the ER showed EKG with nonspecific ST-T changes which is unchanged however he did bump his troponin compared to what he had last week. He is getting admitted for further evaluation and management. He felt other nauseous earlier today but he denies any nausea vomiting abdominal pain no urinary symptoms or bowel symptoms. No cough shortness of breath or fever and chills. Review of Systems Review of Systems: - CONSTITUTIONAL: Denies weight loss, fever and chills. - HEENT: Denies changes in vision and hearing - RESPIRATORY: Denies SOB and cough. - CV: Denies palpitations and Reports CP. - GI: Denies abdominal pain, nausea, vomiting and diarrhea. - : Denies dysuria and urinary frequency. - MSK: Denies myalgia and joint pain. - SKIN: Denies rash and pruritus. - NEUROLOGICAL: Denies headache and syncope. - PSYCHIATRIC: Denies recent changes in mood. Denies anxiety and depression. All systems reviewed & are unremarkable except as noted in HPI and below PMFSH Past Medical History Medical History (Updated 05/19/21 @ 18:22 by Christopher Mckeon MD) Anxiety Coronary artery disease Myocardial infarction in 2001 status post PCI to the right coronary artery. Patient of Dr. Bran Lorenzo. Dyslipidemia Hypertension Hypothyroidism Psoriasis Type 2 diabetes mellitus Viral myocarditis Surgical History Surgical History (Updated 05/14/21 @ 21:01 by Radha Fish PA-C) History of arthroscopy of left knee History of inguinal hernia repair History of percutaneous coronary intervention (2001) PCI to the right coronary artery. History of ventral hernia repair Family History Family History (Updated 05/15/21 @ 02:13 by Fani Ayala RN) Mother Diabetes mellitus Heart disease Sibling Acute myocardial infarction Diabetes mellitus Heart disease Father Acute myocardial infarction Heart disease Social History Social History (Updated 05/14/21 @ 21:03 by Radha Fish PA-C) Social History: The patient lives with his girlfriend in [place]. 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 13 pack-year smoking history, quit about 8 years ago. No alcohol or illicit substance abuse. He designates his mother, Sera Perez, as his surrogate decision maker and he wishes to be a full code. Smoking packs per day: 1 Smoking cigarettes per day: 20.0 Years smoked: 13 Smoking pack-years: 13.00 Smoking status: Former smoker Tobacco type: cigarettes Gender identity (if verbalized by the patient): Male Spiritual care concerns: No Meds Home Medications and Allergies Home Medications Medication Instructions Recorded Confirmed Type Farxiga 10 mg PO DAILY 08/07/20 05/14/21 History cyclobenzaprine 10 mg PO TID PRN #20 tablet 08/07/20 05/14/21 Rx insulin aspart U-100 [Novolog See Protocol SUBCUT TIDWMEAL 08/07/20 05/14/21 History Flexpen U-100 Insulin] metformin 1,000 mg PO BID 08/07/20 05/14/21 History atorvastatin 80 mg PO HS 05/14/21 05/14/21 History azelastine 1 drp OPHTHALMIC (EYE) PRN PRN 05/14/21 05/14/21 History clopidogrel [Plavix] 75 mg PO DAILY 05/14/21 05/14/21 History escitalopram oxalate 10 mg PO DAILY 05/14/21 05/14/21 History levothyroxine [Euthyrox] 125 mcg PO 0600 05/14/21 05/14/21 History lisinopril 40 mg PO ARABELLA
--- NOTE | 2021-05-19 18:50 | PM.CNCAR ---
Assessment and Plan Additional Plan this is a 50-year-old man with coronary disease and diabetes presenting to the hospital once again with exertional chest pain compatible with angina. As I recommended earlier this week he should have a follow-up coronary angiogram. He now was agreeable and this procedure will be scheduled. Obviously since it is Saturday night and the patient is stable I would anticipate this occurring on Saturday. Jose Luis Ashby MD [facility] History of Present Illness History of Present Illness Consult date/time: 05/19/21 18:50 Consult reason: chest pain Reason For Visit: NSTEMI Narrative: this is a 50-year-old man with known coronary disease who is known to me from a recent admission to the hospital several days ago I believe on Saturday and Saturday of this past week with some chest pain. He has a known history of coronary disease and follows with Dr. Lorenzo in our office. The patient has been doing well recently without any symptomatology but recently developed the onset of exertional chest discomfort which I thought was very concerning for angina. He came into the hospital last weekend on Saturday with the symptoms and after seeing him on Saturday morning in consultation I recommended follow-up angiography. The patient really did not want to do that and so instead a nuclear stress test was done which was negative. His electrocardiogram and biomarkers were also negative at that time. He was allowed to go home and follow follow-up in the office was scheduled. Since that brief hospitalization in going home he has continued to have exertional chest discomfort relieved with rest. He describes this as a burning central chest discomfort sometimes radiating to the region of the left shoulder. He had an episode this morning while he was trying to mow his grass that was worse and so this afternoon he came to the emergency room was evaluated and admitted. His electrocardiogram continues to be normal his troponin level was slightly elevated at 0.2 this was normal last weekend. In this setting I am seeing him in consultation. His medical regimen consists of aspirin, clopidogrel, atorvastatin and lisinopril. Review of Systems Constitutional: Constitutional: Reports no additional constitutional complaints Eyes: Eyes: Reports no additional eye complaints ENT: Reports system reviewed and no additional complaints, except as documented Cardiovascular: Cardiovascular: Reports as per HPI Respiratory: Respiratory: Reports no additional respiratory complaints Gastrointestinal: Gastrointestinal: Reports no additional gastrointestinal complaints Musculoskeletal: Musculoskeletal: Reports no additional musculoskeletal complaints Integumentary/Breasts: Skin/Breast: Reports system reviewed and no additional complaints, except as docu Neurologic: Reports system reviewed and no additional complaints, except as documented Endocrine: Endocrine: Reports no additional endocrine complaints Hematologic/Lymphatic: Hematologic/Lymphatic: Reports no additional hematologic/lymphatic complaints Allergic/Immunologic: Allergic/Immunologic: Reports no additional allergic/immunologic complaints [facility] Past Medical History Medical History (Updated 05/19/21 @ 18:30 by Joseph Aguilar MD) Anxiety Coronary artery disease Myocardial infarction in 2001 status post PCI to the right coronary artery. Patient of Dr. Bran Lorenzo. Dyslipidemia Hypertension Hypothyroidism Psoriasis Type 2 diabetes mellitus Viral myocarditis Surgical History Surgical History (Updated 05/14/21 @ 21:01 by Radha Fish PA-C) History of arthroscopy of left knee History of inguinal hernia repair History of percutaneous coronary intervention (2001) PCI to the right coronary artery. History of ventral hernia repair Family History Family History (Updated 05/15/21 @ 02:13 by Fani Ayala RN) Mother Diabetes mellitus Heart disease Sibling Acute myocar
[2021-05-19 19:35] LABS: Troponin I 0.507 ng/mL (0.000-0.034)
[2021-05-19 20:12] LABS: Partial Thromboplastin Time 38.3 SECONDS (22.3-36.8)
[2021-05-19] MEDS: METOPROLOL TARTRATE 25 MG TABLET PO (20:56)
[2021-05-19] MEDS: ATORVASTATIN 40 MG TABLET 80 MG PO (20:56)
[2021-05-20] VITALS (18 sets, daily range): BP systolic 100–121; BP diastolic 64–75; PULSE 63–85; RESP 16–20; TEMP 35.6–36.5; O2SAT 94–98
[2021-05-20 03:17] LABS: Basophils Percent Auto 0.5 % (0.2-1.2); Eosinophils Absolute Auto 0.3 K/mm3 (0-0.3); Eosinophils Percent Auto 4.1 % (0-4.4); Hemoglobin 16.6 g/dL (14.0-18.0); Immature Granulocyte Absolute 0.04 K/mm3 (0.00-0.031); Immature Granulocyte Percent A 0.5 % (0-0.5); Lymphocytes Absolute Auto 2.79 K/mm3 (0.9-3.2); Lymphocytes Percent Auto 34.5 % (18.3-44.2); Mean Corpuscular HGB Conc 33.9 g/dl (32-36); Mean Corpuscular Hemoglobin 30.5 pg (26-34); Mean Corpuscular Volume 89.9 fl (80-100); Mean Platelet Volume 10.7 fl (7.4-10.4); Monocytes Absolute Auto 0.8 K/mm3 (0.1-0.6); Neutrophils Absolute Auto 4.1 K/mm3 (1.3-6.7); Neutrophils Percent Auto 50.4 % (45.5-73.1); Platelet Count Result 186 k/mm3 (150-375); Red Blood Count 5.45 M/mm3 (4.6-6.20); Red Cell Distribution Width 12.7 % (11.5-14.5); White Blood Count 8.1 K/mm3 (4.5-10.0)
[2021-05-20 03:29] LABS: Partial Thromboplastin Time 78.4 SECONDS (22.3-36.8)
[2021-05-20 03:35] LABS: Anion Gap 10 mmol/L (8-16); Blood Urea Nitrogen 17 mg/dL (9-20); Calcium 9.1 mg/dL (8.4-10.2); Carbon Dioxide 27 mmol/L (22-30); Chloride 99 mmol/L (98-107); Cholesterol 125 mg/dL (0-200); Estimated CRCL calculation 123 ml/min; Estimated Glomerular Filt Rate > 60; Glucose 149 mg/dL (65-110); HDL Direct 35 mg/dL; Potassium 3.9 mmol/L (3.4-5.0); Sodium 136 mmol/L (137-145); Triglycerides 236 mg/dL (<150)
[2021-05-20 03:46] LABS: LDL Cholesterol Direct 61 mg/dL
[2021-05-20] MEDS: LEVOTHYROXINE SODIUM 125 MCG TABLET PO (06:13)
[2021-05-20 09:05] LABS: Partial Thromboplastin Time 60.4 SECONDS (22.3-36.8)
[2021-05-20] MEDS: lisinopriL 20 MG TABLET 40 MG PO (10:40)
[2021-05-20] MEDS: ESCITALOPRAM OXALATE 10 MG TABLET PO (10:40)
[2021-05-20] MEDS: metFORMIN HCL 500 MG TABLET 1000 MG PO ×2 (10:41→16:46)
[2021-05-20] MEDS: METOPROLOL SUCCINATE EXT REL 50 MG TABCR PO (10:41)
[2021-05-20] MEDS: CLOPIDOGREL BISULFATE 75 MG TABLET PO (10:42)
[2021-05-20] MEDS: HEPARIN SODIUM 5,000 UNITS/ML VIAL 4000 UNITS IV PUSH (10:48)
[2021-05-20] MEDS: HEPARIN SOD/D5W 100 UNITS/ML 25,000 UNITS/250 ML BAG 16 UNITS IV CONT (10:48)
[2021-05-20] MEDS: ASPIRIN 81 MG CHEWABLE TABLET PO (10:57)
--- NOTE | 2021-05-20 11:14 | PM.PNCARD ---
Progress Note: A&P Additional Plan 50-year-old man with: Ischemic heart disease recurrent exertional angina of recent onset. Plans are for follow-up coronary angiography on Saturday. Will keep him on systemic anticoagulation until several hours prior to his procedure Jose Luis Ashby MD [facility] Subjective Date/time seen: date of service:05/20/21 11:14 Interval history: Follow-up visit in this 50-year-old man With: Coronary artery disease previous percutaneous revascularization and recurrent symptoms compatible with exertional angina. He is scheduled for follow-up angiography on Saturday. He has had no symptoms or instability since being admitted yesterday. Exam Const: General: comfortable and no acute distress HENMT: Mouth: Yes moist mucous membranes Eyes: Sclera: sclerae normal Pupils: Equal, round and reactive pupils present Neck: Neck: supple and no JVD Thyroid: thyroid normal Resp: Effort & Inspection: normal respiratory effort Auscultation: clear to auscultation bilaterally Cardio: Rate: regular rate Rhythm: regular rhythm GI: GI Palp: Yes Soft to palpation Auscultation: normal bowel sounds Neuro: Cognition (Neuro): normal cognition Extrem: General: normal to inspection Objective Data Vital Signs Vital Signs: Vital Signs - 24 hr 05/19/21 12:32 05/19/21 12:54 05/19/21 14:11 Temperature 36.2 C L Pulse Rate 66 66 67 Respiratory Rate 18 12 Blood Pressure 125/74 116/76 Pulse Oximetry 100 98 05/19/21 14:40 05/19/21 15:55 05/19/21 17:36 Temperature Pulse Rate 74 71 62 Respiratory Rate 12 12 10 L Blood Pressure 128/68 117/71 99/61 L Pulse Oximetry 100 98 97 05/19/21 18:02 05/19/21 18:15 05/19/21 20:00 Temperature 36.3 C L 36.4 C Pulse Rate 65 74 72 Respiratory Rate 12 14 16 Blood Pressure 129/78 115/65 Pulse Oximetry 100 98 96 05/19/21 20:56 05/19/21 22:00 05/19/21 23:41 Temperature 36.3 C L Pulse Rate 71 70 67 Respiratory Rate 16 Blood Pressure 100/58 L Pulse Oximetry 95 05/20/21 00:00 05/20/21 02:00 05/20/21 03:50 Temperature 36.3 C L Pulse Rate 63 63 65 Respiratory Rate 16 16 Blood Pressure 100/64 Pulse Oximetry 95 94 05/20/21 04:00 05/20/21 06:00 05/20/21 08:00 Temperature Pulse Rate 67 65 70 Respiratory Rate 16 20 Blood Pressure Pulse Oximetry 94 97 05/20/21 08:51 05/20/21 10:41 Temperature 35.6 C L Pulse Rate 73 70 Respiratory Rate 20 Blood Pressure 113/67 Pulse Oximetry 97 Intake/Output Intake/Output: Intake & Output 05/17/21 05/18/21 05/19/21 05/20/21 23:59 23:59 23:59 23:59 Intake Total 600 Output Total 960 Balance -960 600 Meds/Results Medications: Active Medications Generic Name Dose Route Start Last Admin Trade Name Freq PRN Reason Stop Dose Admin Acetaminophen 650 mg 05/19/21 15:36 Acetaminophen 325 Mg Tablet PO Q4H PRN Mild Pain (1-3) or Fever Hydrocodone Bitart/Acetaminophen 1 tab 05/19/21 15:36 Hydrocodone/Acetaminophen (*Crx) 5-325 Mg Tablet PO Q4H PRN Pain Rated 4-6 Aspirin 81 mg 05/20/21 08:00 05/20/21 10:57 Aspirin 81 Mg Chewable Tablet PO 81 mg DAILY@0800 BELEN Administration Atorvastatin Calcium 80 mg 05/19/21 21:00 05/19/21 20:56 Atorvastatin 40 Mg Tablet PO 80 mg HS BELEN Administration Clopidogrel Bisulfate 75 mg 05/20/21 09:00 05/20/21 10:42 Clopidogrel Bisulfate 75 Mg Tablet PO 75 mg DAILY BELEN Administration Cyclobenzaprine HCl 10 mg 05/19/21 18:29 Cyclobenzaprine Hcl 10 Mg Tablet PO TID PRN muscle spasm Dextrose 12.5 gm 05/19/21 17:49 Dextrose 50% 25 Gm/50 Ml Syringe IV PUSH PRN PRN Hypoglycemia Protocol Escitalopram Oxalate 10 mg 05/20/21 09:00 05/20/21 10:40 Escitalopram Oxalate 10 Mg Tablet PO 10 mg DAILY BELEN Administration Glucagon 1 mg 05/19/21 17:49 Glucagon For Inj 1 Mg Vial IM PRN PRN Hypoglycem
[2021-05-20 12:43] LABS: Glucose Point of Care 198 mg/dl (65-105)
--- NOTE | 2021-05-20 15:56 | PM.IMPN ---
Progress Note: A&P Assessment and Plan (1) Non-ST elevation [place] (NSTEMI): Code(s): I21.4 - Non-ST elevation (NSTEMI) myocardial infarction Status: Acute Assessment and Plan: Recent stress test negative (2) Hypothyroidism: Code(s): E03.9 - Hypothyroidism, unspecified Status: Acute (3) Psoriasis: Code(s): L40.9 - Psoriasis, unspecified Status: Chronic (4) Dyslipidemia: Code(s): E78.5 - Hyperlipidemia, unspecified Status: Acute (5) Coronary artery disease: Code(s): I25.10 - Atherosclerotic heart disease of [place] coronary artery without angina pectoris Status: Chronic Assessment and Plan: status post PCI 2001 x2 RCA and 2013 LCX (6) Hypertension: Code(s): I10 - Essential (primary) hypertension Status: Chronic (7) Type 2 diabetes mellitus: Code(s): E11.9 - Type 2 diabetes mellitus without complications Status: Acute Additional Plan 05/19/21 Heparin drip Aspirin and Plavix Recheck lipid panel continue atorvastatin He is not on beta-cee unsure if he is allergic or related to bradycardia however he might be able to tolerate a small dose will monitor his blood pressure and add if needed Cardiology has been consulted from the ED and will wait for his recommendation resume insulin Home dose, last A1c 05/15/2021 at 6.7 continue atorvastatin DVT prophylaxis: Heparin drip Full code status 05/20/21 Patient to continue medical management this weekend on full-dose anticoagulation will go for PCI on Saturday. remains pain free cont heparin gtt Cardiology following Subjective Date/time seen: 05/20/21 15:56 doing ok we review his extensive cardiac history. Pt denies pain Exam Narrative: GENERAL: NAD cooperative HEENT: Nonicteric sclerae, EOMI. Moist mucous membranes. Conjunctivae appear well perfused. CHEST: Chest wall is nontender. HEART: Regular rate and rhythm without murmur, rubs, or gallops LUNGS: Clear to auscultation bilaterally. no respiratory distress ABDOMEN: Soft, non-tender, no distended SKIN: No rash, no excessive bruising, petechiae, or purpura. NEUROLOGIC: Cranial nerves II-XII intact, alert and oriented x 3, no gross motor deficits EXTREMITIES: no edema, cyanosis or clubbing Objective Data Vital Signs Vital Signs: Vital Signs - 24 hr 07/30/21 17:36 05/19/21 18:02 05/19/21 18:15 Temperature 97.4 F L Pulse Rate 62 65 74 Respiratory Rate 10 L 12 14 Blood Pressure 99/61 L 129/78 Pulse Oximetry 97 100 98 05/19/21 20:00 05/19/21 20:56 05/19/21 22:00 Temperature 97.6 F Pulse Rate 72 71 70 Respiratory Rate 16 Blood Pressure 115/65 Pulse Oximetry 96 05/19/21 23:41 05/20/21 00:00 05/20/21 02:00 Temperature 97.4 F L Pulse Rate 67 63 63 Respiratory Rate 16 16 Blood Pressure 100/58 L Pulse Oximetry 95 95 05/20/21 03:50 05/20/21 04:00 05/20/21 06:00 Temperature 97.4 F L Pulse Rate 65 67 65 Respiratory Rate 16 16 Blood Pressure 100/64 Pulse Oximetry 94 94 05/20/21 08:00 05/20/21 08:51 05/20/21 10:00 Temperature 96.1 F L Pulse Rate 66 73 74 Respiratory Rate 20 20 Blood Pressure 113/67 Pulse Oximetry 97 97 05/20/21 10:41 05/20/21 12:00 05/20/21 12:34 Temperature 96.3 F L Pulse Rate 70 77 72 Respiratory Rate 20 20 Blood Pressure 114/75 Pulse Oximetry 96 96 05/20/21 14:00 Temperature Pulse Rate 75 Respiratory Rate Blood Pressure Pulse Oximetry Intake/Output Intake/Output: Intake & Output 05/17/21 05/18/21 05/19/21 05/20/21 23:59 23:59 23:59 23:59 Intake Total 1080 Output Total 960 Balance -960 1080 Meds/Results Medications: Active Medications Generic Name Dose Route Start Last Admin Trade Name Freq PRN Reason Stop Dose Admin Acetaminophen 650 mg 05/19/21 15:36 Acetaminophen 325 Mg Tablet PO Q4H PRN Mild Pain (1-3) or Fever Hydrocodone Bitart/Acetaminophen 1 tab 05/19/21 15:36
[2021-05-20 17:04] LABS: Partial Thromboplastin Time 92.2 SECONDS (22.3-36.8)
[2021-05-20 17:06] LABS: Glucose Point of Care 171 mg/dl (65-105)
--- NOTE | 2021-05-20 19:05 | PHAR ---
HOME MED VERIFIED = AZELASTINE 0.05% OPHTH SOLUTION. STOCK BOTTLE ONLY, NO RX LABEL SO NO DIRECTIONS.
[2021-05-20] MEDS: ATORVASTATIN 40 MG TABLET 80 MG PO (20:56)
[2021-05-20 22:03] LABS: Glucose Point of Care 183 mg/dl (65-105)
[2021-05-20 23:12] LABS: Partial Thromboplastin Time 76.3 SECONDS (22.3-36.8)
[2021-05-21] VITALS (17 sets, daily range): BP systolic 104–122; BP diastolic 60–74; PULSE 55–87; RESP 16–20; TEMP 36.2–37.1; O2SAT 95–99
--- NOTE | 2021-05-21 00:23 | ECG_ITS ---
Measurements Intervals [place] Rate: 71 P: 42 CO: 148 QRS: -16 QRSD: 97 T: -11 QT: 392 QTc: 427 Interpretive Statements SINUS RHYTHM INCOMPLETE RIGHT BUNDLE BRANCH BLOCK INFERIOR INFARCT, AGE INDETERMINATE ABNORMAL ECG Electronically Signed On 05-21-2021 7:09:36 CDT by Alfa Kay D.O.
[2021-05-21] MEDS: NITROGLYCERIN SL 0.4 MG TABLET SUBLINGUAL ×2 (00:27→04:42)
[2021-05-21] MEDS: HEPARIN SOD/D5W 100 UNITS/ML 25,000 UNITS/250 ML BAG 16 UNITS IV CONT (04:33)
[2021-05-21] MEDS: LEVOTHYROXINE SODIUM 125 MCG TABLET PO (04:44)
[2021-05-21] MEDS: MORPHINE SULFATE (*CRX) 4 MG/ML INJ IV PUSH (04:55)
[2021-05-21 05:47] LABS: Partial Thromboplastin Time 42.7 SECONDS (22.3-36.8)
[2021-05-21] MEDS: HEPARIN SODIUM 5,000 UNITS/ML VIAL 4000 UNITS IV PUSH (06:01)
[2021-05-21] MEDS: NITROGLYCERIN OINTMENT 1 INCH DOSE TRANSDERM ×3 (06:56→17:39)
[2021-05-21 07:54] LABS: Glucose Point of Care 196 mg/dl (65-105)
--- NOTE | 2021-05-21 09:49 | PM.IMPN ---
Progress Note: A&P Assessment and Plan (1) Non-ST elevation [place] (NSTEMI): Code(s): I21.4 - Non-ST elevation (NSTEMI) myocardial infarction Status: Acute Assessment and Plan: Recent stress test negative (2) Hypothyroidism: Code(s): E03.9 - Hypothyroidism, unspecified Status: Acute (3) Psoriasis: Code(s): L40.9 - Psoriasis, unspecified Status: Chronic (4) Dyslipidemia: Code(s): E78.5 - Hyperlipidemia, unspecified Status: Acute (5) Coronary artery disease: Code(s): I25.10 - Atherosclerotic heart disease of [place] coronary artery without angina pectoris Status: Chronic Assessment and Plan: status post PCI 2001 x2 RCA and 2013 LCX (6) Hypertension: Code(s): I10 - Essential (primary) hypertension Status: Chronic (7) Type 2 diabetes mellitus: Code(s): E11.9 - Type 2 diabetes mellitus without complications Status: Acute Additional Plan 05/19/21 Heparin drip Aspirin and Plavix Recheck lipid panel continue atorvastatin He is not on beta-cee unsure if he is allergic or related to bradycardia however he might be able to tolerate a small dose will monitor his blood pressure and add if needed Cardiology has been consulted from the ED and will wait for his recommendation resume insulin Home dose, last A1c 05/15/2021 at 6.7 continue atorvastatin DVT prophylaxis: Heparin drip Full code status 05/20/21 Patient to continue medical management this weekend on full-dose anticoagulation will go for PCI on Saturday. remains pain free cont heparin gtt Cardiology following 05/21/21 patient continues on heparin drip Patient With nitro patch Pain intermittently throughout the day serial troponins are downtrending cardiology following Anticipate cardiac catheterization in a.m. NPO after midnight Subjective Date/time seen: 05/21/21 09:49 patient reporting intermittent chest pain throughout the day. otherwise doing okay Exam Narrative: GENERAL: NAD cooperative HEENT: Nonicteric sclerae, EOMI. Moist mucous membranes. Conjunctivae appear well perfused. CHEST: Chest wall is nontender. HEART: Regular rate and rhythm ABDOMEN: Soft, non-tender, no distended SKIN: No rash, no excessive bruising, petechiae, or purpura. NEUROLOGIC: Cranial nerves II-XII intact, alert and oriented x 3, no gross motor deficits EXTREMITIES: no edema, cyanosis or clubbing Objective Data Vital Signs Vital Signs: Vital Signs - 24 hr 05/20/21 10:00 05/20/21 10:41 05/20/21 12:00 Temperature Pulse Rate 74 70 77 Respiratory Rate 20 Blood Pressure Pulse Oximetry 96 05/20/21 12:34 05/20/21 14:00 05/20/21 16:00 Temperature 96.3 F L Pulse Rate 72 75 74 Respiratory Rate 20 Blood Pressure 114/75 Pulse Oximetry 96 05/20/21 16:47 05/20/21 18:00 05/20/21 20:00 Temperature 96.4 F L Pulse Rate 85 69 70 Respiratory Rate 20 Blood Pressure 120/73 Pulse Oximetry 97 05/20/21 20:55 05/20/21 22:00 05/21/21 00:00 Temperature 97.7 F Pulse Rate 70 66 68 Respiratory Rate 20 Blood Pressure 121/75 Pulse Oximetry 98 05/21/21 00:20 05/21/21 00:32 05/21/21 02:00 Temperature 97.6 F Pulse Rate 73 82 63 Respiratory Rate 16 16 Blood Pressure 122/74 110/63 Pulse Oximetry 99 97 05/21/21 04:00 05/21/21 04:41 05/21/21 06:00 Temperature 97.8 F Pulse Rate 55 L 76 66 Respiratory Rate 17 16 Blood Pressure 110/60 108/61 Pulse Oximetry 97 95 05/21/21 08:00 Temperature 97.1 F L Pulse Rate 66 Respiratory Rate 20 Blood Pressure 120/65 Pulse Oximetry 99 Intake/Output Intake/Output: Intake & Output 05/18/21 05/19/21 05/20/21 05/21/21 23:59 23:59 23:59 23:59 Intake Total 1820 800 Output Total 110 237 7019 Balance -960 1520 -600 Meds/Results Medications: Active Medications Generic Name Dose Route Start Last Admin Trade Name Freq PRN Reason Stop Dose Admin Acetaminophen 65
--- NOTE | 2021-05-21 10:03 | PM.PNCARD ---
Progress Note: A&P Additional Plan 50-year-old man with: Known coronary artery disease with recurrence of ischemic chest pain within the last week or so. He will be brought to the cardiac catheterization lab tomorrow morning for angiographic reassessment in this setting. Systemic anticoagulation with heparin is in place as well as dual anti-platelet therapy, beta-cee and topical nitrates. If he becomes significantly unstable then obviously angiography will occur urgently. Jose Luis Ashby MD [facility] Subjective Date/time seen: date of service:05/21/21 10:03 Interval history: Follow-up visit in this 50-year-old man With: Coronary artery disease previous percutaneous revascularization and recurrent symptoms compatible with exertional angina. He is scheduled for follow-up angiography on Saturday morning. He has had no symptoms or instability since being admitted yesterday. Date of service 05/21/2021: Feels well this morning. Did have an episode of nitrate responsive chest pain late last night and early this morning. He was placed on some topical nitrates at that time. Seems to be comfortable at the moment. This is the 1st symptoms that he has had that are were occurring in a nonexertional fashion. electrocardiogram was unremarkable during the episode of symptoms last night Exam Const: General: comfortable and no acute distress Other: Very pleasant white male comfortable cooperative no distress HENMT: Mouth: Yes moist mucous membranes Eyes: Sclera: sclerae normal Pupils: Equal, round and reactive pupils present Neck: Neck: supple and no JVD Thyroid: thyroid normal Other: carotid pulses are normal there are no audible bruits Resp: Effort & Inspection: normal respiratory effort Auscultation: clear to auscultation bilaterally Cardio: Rate: regular rate Rhythm: regular rhythm Other: PMI of normal location and activity no murmur no gallop no rub GI: Auscultation: normal bowel sounds Skin: General skin exam: normal color Neuro: Cranial nerves: Yes Equal, round and reactive pupils present Cognition (Neuro): normal cognition Extrem: General: normal to inspection Objective Data Vital Signs Vital Signs: Vital Signs - 24 hr 05/20/21 10:41 05/20/21 12:00 05/20/21 12:34 Temperature 35.7 C L Pulse Rate 70 77 72 Respiratory Rate 20 20 Blood Pressure 114/75 Pulse Oximetry 96 96 05/20/21 14:00 05/20/21 16:00 05/20/21 16:47 Temperature 35.8 C L Pulse Rate 75 74 85 Respiratory Rate 20 Blood Pressure 120/73 Pulse Oximetry 97 05/20/21 18:00 05/20/21 20:00 05/20/21 20:55 Temperature 36.5 C Pulse Rate 69 70 70 Respiratory Rate 20 Blood Pressure 121/75 Pulse Oximetry 98 05/20/21 22:00 05/21/21 00:00 05/21/21 00:20 Temperature 36.4 C Pulse Rate 66 68 73 Respiratory Rate 16 Blood Pressure 122/74 Pulse Oximetry 99 05/21/21 00:32 05/21/21 02:00 05/21/21 04:00 Temperature 36.6 C Pulse Rate 82 63 55 L Respiratory Rate 16 17 Blood Pressure 110/63 110/60 Pulse Oximetry 97 97 05/21/21 04:41 05/21/21 06:00 05/21/21 08:00 Temperature 36.2 C L Pulse Rate 76 66 66 Respiratory Rate 16 20 Blood Pressure 108/61 120/65 Pulse Oximetry 95 99 Intake/Output Intake/Output: Intake & Output 05/18/21 05/19/21 05/20/21 05/21/21 23:59 23:59 23:59 23:59 Intake Total 1820 800 Output Total 249 692 5216 Balance -960 1520 -600 Meds/Results Medications: Active Medications Generic Name Dose Route Start Last Admin Trade Name Freq PRN Reason Stop Dose Admin Acetaminophen 650 mg 05/19/21 15:36 Acetaminophen 325 Mg Tablet PO Q4H PRN Mild Pain (1-3) or Fever Hydrocodone Bitart/Acetaminophen 1 tab 05/19/21 15:36 Hydrocodone/Acetaminophen (*Crx) 5-325 Mg Tablet PO Q4H PRN Pain Rated 4-6 Aspirin 81 mg 05/20/21 08:00 05/20/21 10:57 Aspirin 81 Mg Chewable Tablet PO 81 mg DAILY@0800 [facility] Administr
[2021-05-21 10:05] LABS: Troponin I 0.409 ng/mL (0.000-0.034)
[2021-05-21] MEDS: METOPROLOL SUCCINATE EXT REL 50 MG TABCR PO (10:48)
[2021-05-21] MEDS: CLOPIDOGREL BISULFATE 75 MG TABLET PO (10:48)
[2021-05-21] MEDS: ESCITALOPRAM OXALATE 10 MG TABLET PO (10:49)
[2021-05-21] MEDS: metFORMIN HCL 500 MG TABLET 1000 MG PO ×2 (10:49→16:17)
[2021-05-21] MEDS: lisinopriL 20 MG TABLET 40 MG PO (10:49)
[2021-05-21] MEDS: ASPIRIN 81 MG CHEWABLE TABLET PO (10:54)
[2021-05-21 11:52] LABS: Glucose Point of Care 170 mg/dl (65-105)
[2021-05-21 11:58] LABS: Partial Thromboplastin Time 142.2 SECONDS (22.3-36.8)
[2021-05-21 17:00] LABS: Glucose Point of Care 174 mg/dl (65-105)
[2021-05-21] MEDS: HEPARIN SOD/D5W 100 UNITS/ML 25,000 UNITS/250 ML BAG 17 UNITS IV CONT (17:53)
[2021-05-21 19:51] LABS: Partial Thromboplastin Time 72.3 SECONDS (22.3-36.8)
[2021-05-21 20:06] LABS: Troponin I 0.216 ng/mL (0.000-0.034)
[2021-05-21 21:25] LABS: Glucose Point of Care 174 mg/dl (65-105)
[2021-05-21] MEDS: ATORVASTATIN 40 MG TABLET 80 MG PO (21:37)
[2021-05-22] VITALS (35 sets, daily range): BP systolic 81–129; BP diastolic 46–80; PULSE 60–95; RESP 10–22; TEMP 36.4–36.9; O2SAT 94–99
[2021-05-22] MEDS: NITROGLYCERIN OINTMENT 1 INCH DOSE TRANSDERM ×2 (00:36→05:54)
[2021-05-22 01:53] LABS: Partial Thromboplastin Time 81.3 SECONDS (22.3-36.8)
[2021-05-22 05:33] LABS: Basophils Absolute Auto 0.1 K/mm3 (0.0-0.1); Basophils Percent Auto 0.8 % (0.2-1.2); Eosinophils Absolute Auto 0.3 K/mm3 (0-0.3); Eosinophils Percent Auto 2.7 % (0-4.4); Hematocrit 48.9 % (42.0-52.0); Hemoglobin 16.5 g/dL (14.0-18.0); Immature Granulocyte Absolute 0.08 K/mm3 (0.00-0.031); Immature Granulocyte Percent A 0.9 % (0-0.5); Lymphocytes Absolute Auto 2.86 K/mm3 (0.9-3.2); Lymphocytes Percent Auto 30.8 % (18.3-44.2); Mean Corpuscular HGB Conc 33.7 g/dl (32-36); Mean Corpuscular Hemoglobin 30.1 pg (26-34); Mean Corpuscular Volume 89.2 fl (80-100); Monocytes Absolute Auto 0.8 K/mm3 (0.1-0.6); Monocytes Percent Auto 8.3 % (2.6-8.5); Neutrophils Absolute Auto 5.3 K/mm3 (1.3-6.7); Neutrophils Percent Auto 56.5 % (45.5-73.1); Platelet Count Result 209 k/mm3 (150-375); Red Blood Count 5.48 M/mm3 (4.6-6.20); Red Cell Distribution Width 12.3 % (11.5-14.5); White Blood Count 9.3 K/mm3 (4.5-10.0)
[2021-05-22 05:36] LABS: Anion Gap 9 mmol/L (8-16); Blood Urea Nitrogen 14 mg/dL (9-20); Calcium 9.1 mg/dL (8.4-10.2); Carbon Dioxide 25 mmol/L (22-30); Chloride 100 mmol/L (98-107); Estimated CRCL calculation 122 ml/min; Estimated Glomerular Filt Rate > 60; Glucose 168 mg/dL (65-110); Potassium 4.5 mmol/L (3.4-5.0); Sodium 134 mmol/L (137-145)
[2021-05-22] MEDS: LEVOTHYROXINE SODIUM 125 MCG TABLET PO (05:52)
--- NOTE | 2021-05-22 07:32 | WPDMODSED ---
Moderate Sedation Note-Pt Data Patient Data Diagnosis: unstable angina Present Complaint: nitrate responsive chest pain relieved with rest Procedure to be performed/Plan: left heart catheterization Allergies Allergy/AdvReac Type Severity Reaction Status Date / Time No Known Allergies Allergy Unknown Verified 05/19/21 12:52 Home Medications Medication Instructions Recorded Confirmed Type Farxiga 10 mg PO DAILY 08/07/20 05/19/21 History cyclobenzaprine 10 mg PO TID PRN #20 tablet 08/07/20 05/19/21 Rx insulin aspart U-100 [Novolog See Protocol SUBCUT TIDWMEAL 08/07/20 05/19/21 History Flexpen U-100 Insulin] metformin 1,000 mg PO BID 08/07/20 05/19/21 History atorvastatin 80 mg PO HS 05/14/21 05/19/21 History azelastine 1 drp OPHTHALMIC (EYE) PRN PRN 05/14/21 05/19/21 History clopidogrel [Plavix] 75 mg PO DAILY 05/14/21 05/19/21 History escitalopram oxalate 10 mg PO DAILY 05/14/21 05/19/21 History levothyroxine [Euthyrox] 125 mcg PO 0600 05/14/21 05/19/21 History lisinopril 40 mg PO DAILY 05/14/21 05/19/21 History Current Medications: Active Medications Acetaminophen (Acetaminophen 325 Mg Tablet) 650 mg PO Q4H PRN PRN Reason: Mild Pain (1-3) or Fever Hydrocodone Bitart/Acetaminophen (Hydrocodone/Acetaminophen (*Crx) 5-325 Mg Tablet) 1 tab PO Q4H PRN PRN Reason: Pain Rated 4-6 Aspirin (Aspirin 81 Mg Chewable Tablet) 81 mg PO DAILY@0800 [facility] Last Admin: 05/21/21 10:54 Dose: 81 mg Documented by: Atorvastatin Calcium (Atorvastatin 40 Mg Tablet) 80 mg PO HS [facility] Last Admin: 05/21/21 21:37 Dose: 80 mg Documented by: Clopidogrel Bisulfate (Clopidogrel Bisulfate 75 Mg Tablet) 75 mg PO DAILY [facility] Last Admin: 05/21/21 10:48 Dose: 75 mg Documented by: Cyclobenzaprine HCl (Cyclobenzaprine Hcl 10 Mg Tablet) 10 mg PO TID PRN PRN Reason: muscle spasm Dextrose (Dextrose 50% 25 Gm/50 Ml Syringe) 12.5 gm IV PUSH PRN PRN; Protocol PRN Reason: Hypoglycemia Escitalopram Oxalate (Escitalopram Oxalate 10 Mg Tablet) 10 mg PO DAILY [facility] Last Admin: 05/21/21 10:49 Dose: 10 mg Documented by: Glucagon (Glucagon For Inj 1 Mg Vial) 1 mg IM PRN PRN; Protocol PRN Reason: Hypoglycemia Glucose (Glucose Oral Gel 15 Gm Of Glucse In 37.5 Gm Tube) 15 gm PO PRN PRN; Protocol PRN Reason: Hypoglycemia Heparin Sodium (Porcine) (Heparin Sodium 5,000 Units/Ml Vial) 4,000 units IV PUSH PRN PRN PRN Reason: aPTT less than 55 seconds Last Admin: 05/21/21 06:01 Dose: 4,000 units Documented by: Heparin Sodium (Porcine) (Heparin Sodium 5,000 Units/Ml Vial) 4,000 units IV PUSH PRN PRN PRN Reason: aPTT 55 - 70 seconds Dextrose (Dextrose 5% 1,000 Ml) 1,000 mls @ 100 mls/hr IVPB PRN PRN; Protocol PRN Reason: Hypoglycemia Heparin Sodium/Dextrose (Heparin Sodium/D5w 100 Units/Ml) 25,000 units in 250 mls @ 17 mls/hr IV CONT .[id number] [facility]; Protocol Last Titration: 05/22/21 01:27 Dose: 1,700 units/hr, 17 mls/hr Documented by: Insulin Aspart (Insulin Aspart (*Bkc) 100 Units/Ml) 2 - 5 units SUB-Q TIDWM [facility]; Protocol Last Admin: 05/21/21 16:22 Dose: Not Given Documented by: Levothyroxine Sodium (Levothyroxine Sodium 125 Mcg Tablet) 125 mcg PO 0600 [facility] Last Admin: 05/22/21 05:52 Dose: 125 mcg Documented by: Lisinopril (Lisinopril 20 Mg Tablet) 40 mg PO DAILY [facility] Last Admin: 05/21/21 10:49 Dose: 40 mg Documented by: Metformin HCl (Metformin Hcl 500 Mg Tablet) 1,000 mg PO BID [facility] Last Admin: 05/21/21 16:17 Dose: 1,000 mg Documented by: Metoprolol Succinate (Metoprolol Succinate Ext Rel 50 Mg Tabcr) 50 mg PO QAM [facility] Last Admin: 05/21/21 10:48 Dose: 50 mg Documented by: Morphine Sulfate (Morphine Sulfate (*Crx) 4 Mg/Ml Inj) 4 mg IV PUSH Q2H PRN PRN Reason: Pain Rated 7-10 Last Admin: 05/21/21 04:55 Dose: 4 mg Documented by: Nitroglycerin (Nitroglycerin Sl 0.4 Mg Tablet) 0.4 mg SUBLINGUAL Q5MIN PRN PRN Reason: Chest Pain Last Admin: 05/21/21 04:42 Dose: 0.4 mg Documented by: Nitroglycerin (Nitroglycerin Ointment
[2021-05-22] MEDS: METOPROLOL SUCCINATE EXT REL 50 MG TABCR PO (08:23)
[2021-05-22] MEDS: ESCITALOPRAM OXALATE 10 MG TABLET PO (08:24)
[2021-05-22] MEDS: CLOPIDOGREL BISULFATE 75 MG TABLET PO (08:24)
[2021-05-22] MEDS: lisinopriL 20 MG TABLET 40 MG PO (08:24)
[2021-05-22] MEDS: ASPIRIN 81 MG CHEWABLE TABLET PO (08:27)
[2021-05-22 08:50] LABS: Glucose Point of Care 204 mg/dl (65-105)
--- NOTE | 2021-05-22 09:33 | ECG_ITS ---
Measurements Intervals [place] Rate: 57 P: 36 CO: 160 QRS: -18 QRSD: 94 T: -24 QT: 411 QTc: 403 Interpretive Statements SINUS BRADYCARDIA INFERIOR INFARCT, AGE INDETERMINATE BORDERLINE T WAVE ABNORMALITY- LATERAL LEADS ABNORMAL ECG Electronically Signed On 05-22-2021 11:12:38 CDT by Alfa Kay D.O.
--- NOTE | 2021-05-22 09:38 | WPDCARDPROC ---
Cardiac Cath Procedure Note Date of procedure:: 05/22/21 Performing physician:: Jose Luis Ashby MD Indication:: acute coronary syndrome / unstable angina Brief clinical history:: this is a 50-year-old man known to have coronary disease with previous interventions in the circumflex and right coronary arteries. He has been doing well for the last 6-7 years but now presents with accelerating chest pain 1st with exertion typical of angina and has had also had some chest pain at rest which has been nitrate responsive. There was a modest rise in his troponin Procedure Procedure performed:: left ventriculogram coronary angiogram PCI(CHAI) to the circumflex Sedation/Medication given:: fentanyl 50 mg Versed 2 mg case start time 9:00 a.m. case end time 9:29 a.m. sedation provided by Cinda Gusman RN, trained observer Access site:: right femoral artery Estimated blood loss:: 10-15 cc Procedure note:: patient was brought to the cardiac catheterization lab in the postabsorptive state the heparin infusion that was running in the floor was stopped as we brought the patient catheterization lab. The right femoral triangle was prepared and draped in the usual fashion. Anesthesia was provided with 1% lidocaine infiltrated locally. Using the modified Seldinger technique the femoral artery was punctured and 5 [place]ibian vascular sheath was placed. I then utilized a 5 [place] angled pigtail catheter to perform a left ventriculogram in the CAMPA projection and to record left ventricular and aortic hemodynamics. After this the left coronary artery was injected using 5 [place] FL4 catheter. The right coronary was injected using a standard 5 [place] JR4 catheter. Following this the case was terminated. The femoral arterial sheath was sutured into position the patient was taken to the holding area for post PCI recovery. There were no procedural complications and there was no evidence of a groin hematoma upon leaving the [facility]. Findings:: Hemodynamics: Central aortic pressure was 108 over 68 left ventricle 110/0 end-diastolic pressure is 6 there is no systolic gradient on pullback across the aortic valve. Left ventricle: The LV is normal in size there is a region of akinesis at the midportion of the inferior wall the remainder of the LV contracts well global ejection fraction is 55%. The left main coronary artery is short but nicely patent the LAD is a medium caliber artery extending down to but not around the cardiac apex. The LAD and its branches are smooth and free of disease. The circumflex is a medium caliber artery giving rise to the marginal branches and a posterior branch. The circumflex has a high-grade 99% stenosis in the proximal segment before the marginal branch takes its origin. The major marginal branch has a stent that is visible from previous PCI. This segment remains nicely patent without any loss of lumen. The right coronary artery is medium in caliber and is dominant to the posterior circulation ending in RPDA. The right coronary artery has diffuse luminal irregularities but no significant stenosis is seen. There is a stent seen in the mid to distal RCA also that remains nicely patent with no loss of lumen. intervention: 5 [place]ibian sheath was changed out over a guidewire for a 6 [place]ian sheath. The patient was then systemically anticoagulated with Angiomax. For this PCI. Was already receiving dual anti-platelet therapy and received no additional aspirin or Plavix in the [facility] laboratory. I engaged the left coronary artery using a CLS 3.5 guiding catheter. I used a 0.014 BMW coronary guidewire to traverse the stenosis advanced the guidewire into the distal aspect of the major marginal branch. The lesion was then pre-dilated using a 2.5 x 20 mm emerge PTCA balloon and then stented using a 2.75 x 22 mm Orsiro drug-eluting stent with a nice anatomic result the stent was deployed at 10 atmospheres to result in a diameter of 3 mm.
[2021-05-22] MEDS: SODIUM CHLORIDE 0.9% IV 1,000 ML 125 ML IV CONT (11:45)
--- NOTE | 2021-05-22 12:38 | PC.NURSE ---
Cardiopulmonary Rehab Services flyer was given to patient in admission folder.
--- NOTE | 2021-05-22 15:51 | PM.IMPN ---
Progress Note: A&P Assessment and Plan (1) Non-ST elevation CO (NSTEMI): Code(s): I21.4 - Non-ST elevation (NSTEMI) myocardial infarction Status: Acute Assessment and Plan: - elevated troponin, status post heart catheterization with 99% stenosis lesion found in proximal circumflex now with drug-eluting stent. left heart catheterization by Dr. Ashby - dual anti-platelet therapy - continue home statin - metoprolol started - Zofran for nausea -sublingual nitroglycerin p.r.n. (2) Anxiety: Code(s): F41.9 - Anxiety disorder, unspecified Status: Acute Assessment and Plan: continue home escitalopram (3) Hypothyroidism: Code(s): E03.9 - Hypothyroidism, unspecified Status: Acute Assessment and Plan: continue levothyroxine (4) Psoriasis: Code(s): L40.9 - Psoriasis, unspecified Status: Chronic Assessment and Plan: continue home medications (5) Dyslipidemia: Code(s): E78.5 - Hyperlipidemia, unspecified Status: Acute Assessment and Plan: as above (6) Coronary artery disease: Code(s): I25.10 - Atherosclerotic heart disease of [place] coronary artery without angina pectoris Status: Chronic Assessment and Plan: as above (7) Hypertension: Code(s): I10 - Essential (primary) hypertension Status: Chronic Assessment and Plan: continue home lisinopril (8) Type 2 diabetes mellitus: Code(s): E11.9 - Type 2 diabetes mellitus without complications Status: Acute Assessment and Plan: continue home insulin and Farxiga, metformin can start after 48 hours from contrast Additional Plan Diet: Cardiac DVT prophylaxis: SCDs, was on heparin drip Code status: Full code Disposition: Likely home tomorrow Time Spent With Patient Time with patient: 15 - 25 minutes Subjective Date/time seen: 05/22/21 15:51. Patient examined after cardiac catheterization. Patient was admitted for NSTEMI and had cardiac catheterization today with placement of drug-eluting stent in proximal circumflex in a progressive high grade lesion 99% stenosis [place] 2 flow. patient feels good after cardiac catheterization. He will likely get discharged tomorrow. Review of Systems Review of Systems: All systems reviewed & are unremarkable except as noted in HPI and below Exam Narrative: - GENERAL: No acute distress. Well-nourished. obese - EYES: EOMI. Anicteric. - HENT: Moist mucous membranes. - LUNGS: Clear to auscultation bilaterally, no wheezing, rhonchi, or rales. - CARDIOVASCULAR: Regular rate and rhythm. No murmur. No JVD. - ABDOMEN: Soft, non-tender and non-distended. No palpable masses. - EXTREMITIES: No edema. Peripheral pulses 2+. Non-tender. bandage over right groin access site for cardiac catheterization - NEUROLOGIC: No focal neurological deficits. CN II-XII grossly intact. - PSYCHIATRIC: Awake, Alert and oriented x 3. Appropriate mood and affect. - SKIN: psoriasis scaly lesions on knees and elbows. Warm. - LYMPH: No cervical lymphadenopathy. Objective Data Vital Signs Vital Signs: Vital Signs - 24 hr 05/21/21 16:00 05/21/21 18:00 05/21/21 19:38 Temperature 37.1 C 36.8 C Pulse Rate 72 87 75 Respiratory Rate 16 17 Blood Pressure 116/73 104/62 Pulse Oximetry 97 96 05/21/21 20:00 05/21/21 22:00 05/22/21 00:00 Temperature 36.6 C Pulse Rate 77 74 71 Respiratory Rate 22 H Blood Pressure 81/46 L Pulse Oximetry 95 05/22/21 02:00 05/22/21 04:00 05/22/21 06:00 Temperature 36.6 C Pulse Rate 74 69 71 Respiratory Rate 18 Blood Pressure 108/67 Pulse Oximetry 98 05/22/21 08:00 05/22/21 08:23 05/22/21 09:50 Temperature 36.4 C 36.4 C L Pulse Rate 95 74 66 Respiratory Rate 12 11 L Blood Pressure 118/66 105/80 Pulse Oximetry 95 96 05/22/21 10:00 05/22/21 10:15 05/22/21 10:30 Temperature Pulse Rate 63 62 66 Respiratory Rate 12 12 15 Blood Pre
[2021-05-22] MEDS: INSULIN ASPART (*BKC) 100 UNITS/ML SUB-Q (17:05)
[2021-05-22] MEDS: metFORMIN HCL 500 MG TABLET 1000 MG PO (17:05)
[2021-05-22 17:06] LABS: Glucose Point of Care 226 mg/dl (65-105)
[2021-05-22] MEDS: ACETAMINOPHEN 325 MG TABLET 650 MG PO (17:10)
[2021-05-22] MEDS: ATORVASTATIN 40 MG TABLET 80 MG PO (21:28)
[2021-05-22 21:43] LABS: Glucose Point of Care 230 mg/dl (65-105)
[2021-05-23] VITALS (9 sets, daily range): BP systolic 135; BP diastolic 70–73; PULSE 61–78; RESP 13–16; TEMP 36.5–36.8; O2SAT 95–99
--- NOTE | 2021-05-23 05:11 | ECG_ITS ---
Measurements Intervals [place] Rate: 67 P: 39 GA: 165 QRS: -17 QRSD: 102 T: -28 QT: 393 QTc: 417 Interpretive Statements SINUS RHYTHM INFERIOR INFARCT, AGE INDETERMINATE BORDERLINE ST-T WAVE ABNORMALITY- LATERAL LEADS ABNORMAL ECG Electronically Signed On 05-23-2021 8:40:13 CDT by Alfa Kay D.O.
[2021-05-23] MEDS: LEVOTHYROXINE SODIUM 125 MCG TABLET PO (05:51)
[2021-05-23 06:16] LABS: Partial Thromboplastin Time 27.2 SECONDS (22.3-36.8)
[2021-05-23 08:16] LABS: Glucose Point of Care 263 mg/dl (65-105)
--- NOTE | 2021-05-23 09:02 | PM.PNCARD ---
Progress Note: A&P Assessment and Plan (1) Non-ST elevation MS (NSTEMI): Code(s): I21.4 - Non-ST elevation (NSTEMI) myocardial infarction Status: Acute Assessment and Plan: patient is status post PCI/ CHAI x1 LCX in the setting of non ST elevation MS. Currently patient is chest pain-free. Continue optimal, tolerable medical treatment including dual antiplatelet therapy with aspirin and clopidogrel; beta-cee, Anup inhibitor and high-intensity statin. Importance of compliance with medications, especially dual antiplatelet therapy was discussed with the patient. He will follow-up with Dr. Lorenzo in outpatient cardiology clinic in 3-4 weeks. Discussed the option of cardiac rehab with the patient. At this time, patient would prefer to do exercise at home. Subjective Date/time seen: 05/23/21 09:02 Date of service: 05/23/2021 interval history: Patient is status post PCI/ CHAI LCX in the setting of non ST elevation MS. He reports resolution of chest pain. No shortness of breath. No groin pain. Exam Narrative: PHYSICAL EXAMINATION: GENERAL: Alert, oriented, no acute distress MENTAL STATUS: affect appropriate to mood EYES: Extraocular movements intact, no pallor EARS: External ears appear normal, hearing grossly normal NOSE: Normal and patent, no discharge MOUTH: Mucous membranes moist, tongue normal NECK: Supple, no JVD CHEST: Good respiratory effort, clear to auscultation HEART: Normal rate, regular rhythm, normal S1 and S2, no audible murmurs ABDOMEN: Soft, nontender NEUROLOGICAL: Alert, oriented, normal speech, no gross motor deficits MUSCULOSKELETAL: No major deformity, no amputation EXTREMITIES: No pedal edema, Right groin access site unremarkable SKIN: rash present PSYCHIATRIC: Normal mood, appropriate affect Objective Data Vital Signs Vital Signs: Vital Signs - 24 hr 05/22/21 09:50 05/22/21 10:00 05/22/21 10:15 Temperature 36.4 C L Pulse Rate 66 63 62 Respiratory Rate 11 L 12 12 Blood Pressure 105/80 113/69 114/66 Pulse Oximetry 96 94 96 05/22/21 10:30 05/22/21 10:45 05/22/21 11:15 Temperature Pulse Rate 66 72 61 Respiratory Rate 15 13 15 Blood Pressure 102/73 108/71 103/68 Pulse Oximetry 95 96 94 05/22/21 11:45 05/22/21 12:15 05/22/21 12:30 Temperature Pulse Rate 61 62 69 Respiratory Rate 13 12 15 Blood Pressure 99/64 L 110/70 118/77 Pulse Oximetry 94 95 95 05/22/21 12:35 05/22/21 12:40 05/22/21 12:45 Temperature Pulse Rate 66 69 70 Respiratory Rate 15 15 14 Blood Pressure 118/72 116/76 120/80 Pulse Oximetry 96 95 96 05/22/21 12:50 05/22/21 12:55 05/22/21 13:00 Temperature Pulse Rate 66 67 66 Respiratory Rate 14 14 14 Blood Pressure 109/77 121/74 116/71 Pulse Oximetry 97 97 95 05/22/21 13:13 05/22/21 13:30 05/22/21 13:45 Temperature Pulse Rate 66 60 64 Respiratory Rate 13 10 L 12 Blood Pressure 118/71 96/60 L 102/62 Pulse Oximetry 96 95 97 05/22/21 14:00 05/22/21 14:30 05/22/21 15:00 Temperature Pulse Rate 78 74 74 Respiratory Rate 13 12 12 Blood Pressure 100/64 118/58 L 118/58 L Pulse Oximetry 96 98 98 05/22/21 15:18 05/22/21 16:00 05/22/21 18:00 Temperature 36.9 C Pulse Rate 72 75 70 Respiratory Rate 12 12 12 Blood Pressure 114/68 114/68 118/63 Pulse Oximetry 96 99 97 05/22/21 19:00 05/22/21 19:18 05/22/21 20:00 Temperature 36.6 C Pulse Rate 70 70 72 Respiratory Rate 12 13 12 Blood Pressure 116/60 129/66 Pulse Oximetry 99 98 99 05/22/21 22:00 05/22/21 23:18 05/23/21 00:00 Temperature 36.8 C Pulse Rate 69 66 71 Respiratory Rate 14 14 Blood Pressure 112/59 L Pulse Oximetry 95 95 05/23/21 02:00 05/23/21 03:18 05/23/21 04:00 Temperature 36.8 C Pulse Rate 63 70 61 Respiratory Rate 13 14 Blood Pressure 135/70 Pulse Oximetry 98 95 05/23/21 06:00 05/23/21 07:18 Temperature 36.5 C Pulse Rate 68 78 Respiratory Rate 16 Blood Pressure 135/73 Pulse Oxim
[2021-05-23] MEDS: CLOPIDOGREL BISULFATE 75 MG TABLET PO (09:08)
[2021-05-23] MEDS: ESCITALOPRAM OXALATE 10 MG TABLET PO (09:08)
[2021-05-23] MEDS: metFORMIN HCL 500 MG TABLET 1000 MG PO (09:08)
[2021-05-23] MEDS: METOPROLOL SUCCINATE EXT REL 50 MG TABCR PO (09:08)
[2021-05-23] MEDS: lisinopriL 20 MG TABLET 40 MG PO (09:09)
[2021-05-23] MEDS: INSULIN ASPART (*BKC) 100 UNITS/ML SUB-Q (09:10)
--- NOTE | 2021-05-23 09:12 | PM.DS ---
DS: Admitting Diagnosis Admitting Diagnosis NSTEMI DS: Discharge Diagnosis Discharge Diagnosis (1) Non-ST elevation NC (NSTEMI): Code(s): I21.4 - Non-ST elevation (NSTEMI) myocardial infarction Status: Acute Assessment and Plan: status post PCI drug-eluting stent x1 left circumflex proximal, patient to follow-up with Dr. Lorenzo in 3 4 weeks DS: Summary Hospital Course Reason for hospitalization: NSTEMI Hospital Course: patient is a 50-year-old male with past medical history of CAD status post NC in 2001 of right coronary comes to ER with complaints of exertional chest pain. Patient is the patient of Dr. Bran Lorenzo. patient presented with elevated troponin which peaked at 0.507. hemoglobin A1c 6.7. total cholesterol 125, LDL 61, HDL 35, triglycerides 236. on Saturday05/22/2021 patient had PCI by Dr. Ashby drug-eluting stent placed in 99% stent stenosis in proximal circumflex. patient tolerated procedure with no problems. Access site was right groin. Patient is to limit activity lifting weight greater than 5 lb for 1 week and no driving for 2 days. Patient to follow-up with Dr. Lorenzo primary satin finisher in 3-4 weeks. Patient will continue his aspirin Plavix statin acei and Beta-cee. Patient states he is on Coreg at home will continue that medication. Patient's labs stable, vitals stable, patient is stable for discharge home. Patient will follow-up with his PCP in a week as well. Patient understands and agrees with plan. Status at Discharge Functional status at discharge: independent ambulation Overall status at discharge: patient is back to baseline Time Spent with Patient Time attestation: Total time spent providing and/or coordinating discharge services: 35 Time spent: Greater than 30 minutes Exam Narrative: - GENERAL: No acute distress. Well-nourished. appears stated - EYES: EOMI. Anicteric. - HENT: Moist mucous membranes. - LUNGS: Clear to auscultation bilaterally, no wheezing, rhonchi, or rales. - CARDIOVASCULAR: Regular rate and rhythm. No murmur. No JVD. - ABDOMEN: Soft, non-tender and non-distended. No palpable masses. - EXTREMITIES: No edema. Peripheral pulses 2+. Non-tender. right groin access site with dressing clean dry intact - NEUROLOGIC: No focal neurological deficits. CN II-XII grossly intact. - PSYCHIATRIC: Awake, Alert and oriented x 3. Appropriate mood and affect. - SKIN: No rashes or lesions. Warm. - LYMPH: No cervical lymphadenopathy. DS: Data Data Completed and Pending Labs on day of discharge: Labs from last 24 hours 05/23/21 05/23/21 05/22/21 08:13 05:00 20:03 APTT 27.2 POC Capillary Glucose 263 H 230 H 05/22/21 16:25 APTT POC Capillary Glucose 226 H Discharge Plan Discharge Attending physician on discharge: Howard Toledo Consulting providers: Jose Luis Ashby Discharging Clinician: Howard Toledo Anticipated Discharge Date/Time: 05/23/21 09:05 Patient Disposition: Home, Self-Care Activity: may shower Diet: heart healthy Wound Care Instructions: other - see discharge instructions Discharge Instructions: Keep right groin dry for the next couple days. Patient Instructions: Antibiotic Form, Heparin (By injection) Patient Language: Jamaican Stand Alone Forms: General Discharge Information, Work/School Release IP Follow-up/Referrals: Jose Luis Ashby MD [Physician] - 4 Weeks [facility],Sara Rosenberg MD [Primary Care Provider] - 1 Week (PCP f/u 1 week, post PCI for NSTEMI) Discharge Medications: New aspirin [Enteric Coated Aspirin] 81 mg tablet,delayed release (DR/EC) 81 mg PO DAILY Qty: 30 RF: 5 carvedilol 3.125 mg tablet 3.125 mg PO Q12H Qty: 60 RF: 0 Continued metformin 1,000 mg tablet 1,000 mg PO BID RF: 0 insulin aspart U-100 [Novolog Flexpen U-100 Insulin] 100 unit/mL (3 mL) insulin pen See Protocol unit SUBCUT TIDWMEAL RF: 0 Farxiga 10 mg tab
== END 2021-05-23 10:41 | disposition home or self-care (01) | DRG 247 ==
LOC: ANHED 13:27 → ANHIMU 18:30
PROVIDERS: Hospitalist; Internal Medicine; Specialist; Admitting Provider Internal Medicine; Emergency Provider Emergency Medicine; PCP Family Medicine; Visit Provider Student in an Organized Health Care Education/Training Program
PROC: 4A023N7 Measurement of Cardiac Sampling and Pressure, Left Heart, Percutaneous Approach (ICD-10-PCS; CPT 93452; principal; 2021-05-22 08:30)
PROC: 027034Z Dilation of Coronary Artery, One Artery with Drug-eluting Intraluminal Device, Percutaneous Approach (ICD-10-PCS; CPT 92928; 2021-05-22 08:30)
DX: I21.4 Non-ST elevation (NSTEMI) myocardial infarction (principal); I25.110 Atherosclerotic heart disease of native coronary artery with unstable angina pectoris; M25.512 Pain in left shoulder; I10 Essential (primary) hypertension; E03.9 Hypothyroidism, unspecified; E11.9 Type 2 diabetes mellitus without complications; E78.5 Hyperlipidemia, unspecified; F41.9 Anxiety disorder, unspecified; L40.9 Psoriasis, unspecified; I25.2 Old myocardial infarction; Z87.891 Personal history of nicotine dependence
CPT/HCPCS: 36415; 71046; 80048; 80061; 82948; 84484; 85025; 85610; 85730; 93005; 93458; 96365; 96366; 99285; A9270; C1725; C1769; C1874; C1887; C1894; C9600; G0378; J0461; J0583; J1644; J1815; J2250; J2270; J3010; J7030; J7040; J7120

== ENCOUNTER 2021-05-23 15:50 | Observation (INO) | payer BC, SELFPAY ==
[2021-05-23] VITALS (7 sets, daily range): BP systolic 121–139; BP diastolic 68–87; PULSE 72–115; RESP 16–20; TEMP 36.6–37.8; O2SAT 97–100; BMI 33.9
--- NOTE | ~2021-05-23 | XR_ITS ---
EXAMINATION: XR chest 2V DATE: 05/23/2021 16:17 INDICATION: Midsternal chest pain. TECHNIQUE: Frontal and lateral views of the chest were obtained. COMPARISON: Chest 2 views 05/19/2021 FINDINGS: There is mild atelectasis in the lower lung zones. No pleural effusion or pneumothorax. The heart size is normal. IMPRESSION: 1. Mild atelectasis in the lower lung zones. Reviewed, dictated and finalized at location A.
--- NOTE | 2021-05-23 15:52 | ECG_ITS ---
Measurements Intervals [place] Rate: 103 P: 30 MA: 152 QRS: -30 QRSD: 94 T: -11 QT: 341 QTc: 447 Interpretive Statements SINUS TACHYCARDIA POSSIBLE LEFT ATRIAL ENLARGEMENT INCOMPLETE RIGHT BUNDLE BRANCH BLOCK BORDERLINE R WAVE PROGRESSION, ANTERIOR LEADS INFERIOR INFARCT, AGE INDETERMINATE ABNORMAL ECG Electronically Signed On 05-23-2021 15:57:44 CDT by Alfa Kay D.O.
[2021-05-23 16:37] LABS: Basophils Absolute Auto 0.1 K/mm3 (0.0-0.1); Basophils Percent Auto 0.7 % (0.2-1.2); Eosinophils Absolute Auto 0.3 K/mm3 (0-0.3); Eosinophils Percent Auto 2.8 % (0-4.4); Hematocrit 50.7 % (42.0-52.0); Hemoglobin 16.8 g/dL (14.0-18.0); Immature Granulocyte Absolute 0.08 K/mm3 (0.00-0.031); Immature Granulocyte Percent A 0.9 % (0-0.5); Lymphocytes Absolute Auto 2.13 K/mm3 (0.9-3.2); Lymphocytes Percent Auto 23.1 % (18.3-44.2); Mean Corpuscular HGB Conc 33.1 g/dl (32-36); Mean Corpuscular Hemoglobin 29.7 pg (26-34); Mean Corpuscular Volume 89.6 fl (80-100); Mean Platelet Volume 10.8 fl (7.4-10.4); Monocytes Absolute Auto 0.7 K/mm3 (0.1-0.6); Monocytes Percent Auto 7.8 % (2.6-8.5); Neutrophils Percent Auto 64.7 % (45.5-73.1); Platelet Count Result 203 k/mm3 (150-375); Red Blood Count 5.66 M/mm3 (4.6-6.20); Red Cell Distribution Width 12.4 % (11.5-14.5); White Blood Count 9.2 K/mm3 (4.5-10.0)
[2021-05-23] MEDS: ASPIRIN 81 MG CHEWABLE TABLET 324 MG PO (16:37)
--- NOTE | 2021-05-23 16:44 | ED.CHESTPAIN ---
HPI - Chest Pain General Chief Complaint: Chest Pain Stated Complaint: Empty feeling in chest,cough,recent cardiac cath Time Seen by Provider: 05/23/21 16:14 Source: patient Mode of arrival: ambulatory Limitations: no limitations History of Present Illness HPI narrative: 50-year-old male Patient had a heart cath here yesterday and a circumflex lesion stented Left the hospital at noon today About an hour after that he started having chest discomfort He says before getting the stent he was actually having exertional pain, this is different, he describes a hollow empty sensation instead however took a nitroglycerin and said he felt better He also had lunch subsequent to the onset of the symptoms which did not change things He does not have shortness of breath nausea or diaphoresis Interestingly about 5 days before his immediately preceding admission, he had another ED visit and hospital admission for evaluation of chest discomfort and had a Enma scan which was interpreted as fully normal, this in spite of having a 99% occluded circumflex lesion found the following week Related Data Home Medications Medication Instructions Recorded Confirmed Farxiga 10 mg PO DAILY 08/07/20 05/19/21 insulin aspart U-100 [Novolog See Protocol SUBCUT TIDWMEAL 08/07/20 05/19/21 Flexpen U-100 Insulin] metformin 1,000 mg PO BID 08/07/20 05/19/21 atorvastatin 80 mg PO HS 05/14/21 05/19/21 azelastine 1 drp OPHTHALMIC (EYE) PRN PRN 05/14/21 05/19/21 escitalopram oxalate 10 mg PO DAILY 05/14/21 05/19/21 levothyroxine [Euthyrox] 125 mcg PO 0600 05/14/21 05/19/21 lisinopril 40 mg PO DAILY 05/14/21 05/19/21 Allergies Allergy/AdvReac Type Severity Reaction Status Date / Time No Known Allergies Allergy Unknown Verified 05/23/21 16:30 Review of Systems Review of Systems: All systems reviewed & are unremarkable except as noted in HPI and below Constitutional: Constitutional: Reports no additional constitutional complaints, Denies chills, Denies fever(s) and Denies headache(s) Eyes: Eyes: Reports no additional eye complaints and Denies change in vision ENT: Denies headache(s) and Denies sore throat Cardiovascular: Cardiovascular: Reports chest pain and Denies dyspnea Respiratory: Respiratory: Denies cough and Denies dyspnea Gastrointestinal: Gastrointestinal: Denies abdominal pain, Denies diarrhea and Denies vomiting Genitourinary: Genitourinary: Denies dysuria and Denies urinary frequency Musculoskeletal: Musculoskeletal: Denies deformity, Denies arthralgias, Denies joint swelling and Denies numbness Integumentary/Breasts: Skin/Breast: Denies rash and Denies wounds Neurologic: Denies headache(s), Denies focal weakness and Denies numbness Psychiatric: Psychiatric: Reports no additional psychiatric complaints Endocrine: Endocrine: Reports no additional endocrine complaints Hematologic/Lymphatic: Hematologic/Lymphatic: Reports no additional hematologic/lymphatic complaints Allergic/Immunologic: Allergic/Immunologic: Reports no additional allergic/immunologic complaints [facility] Past Medical History Medical History (Updated 05/23/21 @ 18:04 by Nitin Campbell MD) Anxiety Coronary artery disease Myocardial infarction in 2001 status post PCI to the right coronary artery. Patient of Dr. Bran Lorenzo. Dyslipidemia Hypertension Hypothyroidism Psoriasis Type 2 diabetes mellitus Viral myocarditis Surgical History Surgical History (Updated 05/14/21 @ 21:01 by KATYA Stanley-C) History of arthroscopy of left knee History of inguinal hernia repair History of percutaneous coronary intervention (2001) PCI to the right coronary artery. History of ventral hernia repair Family History Family History Mother Diabetes mellitus Heart disease Sibling Acute myocardial infarction Diabetes mellitus Heart disease Father Acute myocardial infarction Heart disease So
[2021-05-23 16:47] LABS: INR 0.9; Prothrombin Time 11.6 Seconds (11.1-14.7)
[2021-05-23 16:48] LABS: Partial Thromboplastin Time 25.8 SECONDS (22.3-36.8)
[2021-05-23 16:49] LABS: Anion Gap 12 mmol/L (8-16); Blood Urea Nitrogen 15 mg/dL (9-20); Calcium 9.1 mg/dL (8.4-10.2); Carbon Dioxide 23 mmol/L (22-30); Chloride 99 mmol/L (98-107); Estimated CRCL calculation 122 ml/min; Estimated Glomerular Filt Rate > 60; Glucose 233 mg/dL (65-110); Potassium 4.3 mmol/L (3.4-5.0); Sodium 134 mmol/L (137-145)
[2021-05-23 17:04] LABS: Troponin I 0.068 ng/mL (0.000-0.034)
--- NOTE | 2021-05-23 18:13 | ECG_ITS ---
Measurements Intervals [place] Rate: 87 P: 32 NM: 185 QRS: -15 QRSD: 82 T: 0 QT: 341 QTc: 412 Interpretive Statements SINUS RHYTHM INCOMPLETE RIGHT BUNDLE BRANCH BLOCK INFERIOR INFARCT, AGE INDETERMINATE BASELINE ARTIFACT- I, II ABNORMAL ECG Electronically Signed On 05-24-2021 9:53:52 CDT by Alfa Kay D.O.
--- NOTE | 2021-05-23 19:32 | ADMGEN ---
This patient, Girish Perez, was admitted to IMU Room 203-01 at 1908. Patient/family oriented to hospital policies and general routines including ID bracelet, bed and alarms, visiting hours, pain management, procedures, bathroom and other care routines, personal items, smoking policy, room service/diet, and visiting hours. Information on how to activate the Rapid Response Team has been discussed. Patient/Family are encouraged to report perceived risks to care and to ask questions if they do not understand what they are told or what they should do.
[2021-05-23] MEDS: LACTATED RINGERS 1,000 ML 60 ML IV CONT (20:48)
[2021-05-23 21:53] LABS: Troponin I 0.069 ng/mL (0.000-0.034)
[2021-05-24] VITALS: PULSE 81; RESP 20; O2SAT 100
[2021-05-24 02:00] VITALS: PULSE 76
[2021-05-24 04:00] VITALS: BP 143/70; PULSE 63; PULSE 64; RESP 19; TEMP 36.6; O2SAT 99
[2021-05-24 06:00] VITALS: PULSE 96
[2021-05-24 08:00] VITALS: BP 141/77; PULSE 75; PULSE 79; RESP 18; TEMP 36.8; O2SAT 99
--- NOTE | 2021-05-24 08:25 | PM.IMHP ---
H&P: HPI History of Present Illness Date/Time: 05/24/21 08:25 Chief Complaint: atypical chest symptoms Narrative: this is a 50-year-old man known to me with coronary artery disease who came into the emergency room yesterday shortly after being discharged earlier in the day from this hospital. While he was at home he noticed a sensation of what he is describing as a gurgling sensation in the chest that began in the upper substernal region and then went down to the center of the chest and down into his abdomen. The symptoms occurred while he was sitting in a chair relaxing at his mother's home talking to her after he was discharged from the hospital. He then was running errands with his at [employer] later in the afternoon and noticed similar symptoms while he was doing that after this occurred several times he became concerned he did not know what was going on it so he came to the emergency room where he was evaluated and admitted to the hospital. In the emergency room he appeared to be stable he was not having any chest pain his electrocardiogram looks unremarkable his troponin levels are slightly elevated at 0.06 and are flat. Troponin levels are not significantly elevated from that which was seen earlier in the day when he was discharged. This is a man who has a well documented history of coronary disease and the reader is referred to the notes in the chart from discharged yesterday for full details. In short he has a history of previous myocardial infarction in the inferior wall and previous stenting of the mid to distal RCA and of the distal of a portion of a obtuse marginal circumflex branch in the remote past. In the last several weeks he redeveloped typical exertional angina which resulted into the hospitalizations when he came back to the hospital Saturday of last week and he was kept in through the weekend and brought to the cardiac coreroom foundry laborer on Saturday. He was found to have a high-grade subtotal stenosis in the proximal aspect of his circumflex artery prior to the previously stented target. There was some mild diffuse disease in the RCA but nothing flow limiting. He received another drug-eluting stent to the circumflex culprit lesion with an excellent anatomical result there was no angiographic complication such as dissection perforation or distal embolization. He was discharged yesterday morning in good condition and reports that the symptoms the for which he was seen in the emergency room yesterday have no similarity to his previous ischemic chest pain. He does report that he took a nitroglycerin at home with improvement in this symptom which also raise some concern on his part. Review of Systems Constitutional: Constitutional: Reports no additional constitutional complaints Eyes: Eyes: Reports no additional eye complaints ENT: Reports system reviewed and no additional complaints, except as documented Cardiovascular: Cardiovascular: Reports as per HPI Respiratory: Respiratory: Reports no additional respiratory complaints Gastrointestinal: Gastrointestinal: Reports as per HPI Genitourinary: Genitourinary: Reports no additional male genitourinary complaints Musculoskeletal: Musculoskeletal: Reports no additional musculoskeletal complaints Integumentary/Breasts: Skin/Breast: Reports system reviewed and no additional complaints, except as docu Neurologic: Reports system reviewed and no additional complaints, except as documented [facility] Past Medical History Medical History (Updated 05/23/21 @ 18:04 by Nitin Campbell MD) Anxiety Coronary artery disease Myocardial infarction in 2001 status post PCI to the right coronary artery. Patient of Dr. Bran Lorenzo. Dyslipidemia Hypertension Hypothyroidism Psoriasis Type 2 diabetes mellitus Viral myocarditis Surgical History Surgical History (Updated 05/14/21 @ 21:01 by Radha Fish PA-C) History of arthroscopy of left knee History of inguinal hernia repair Histo
--- NOTE | 2021-05-24 08:33 | PM.DS ---
DS: Admitting Diagnosis Admitting Diagnosis atypical chest discomfort DS: Discharge Diagnosis Discharge Diagnosis (1) Atypical chest pain: Code(s): R07.89 - Other chest pain Status: Acute DS: Summary Hospital Course Reason for hospitalization: atypical chest discomfort described as gurgling Hospital Course: this is a 50-year-old man who was seen in the emergency room about 7 hours after he was discharged from the hospital earlier in the day yesterday. He is well known to have coronary disease as is dictated that chart. Following discharge he had several episodes of very strange unusual symptom that he described as a gurgling in the upper substernal region that would then proceed down the center of his chest and into the abdomen. The symptoms were in no way similar to or reminiscent of his ischemic cardiac symptoms. The patient was seen in the hospital a couple of times last week with very typical exertional angina. He was found in the clinical laboratory assistant on Saturday to have a very high-grade proximal circumflex lesion that was successfully treated with a drug-eluting stent. Previous drug-eluting stents in his more distal circumflex OM and the mid to distal RCA remained nicely patent. He had an uncomplicated intervention and was discharged yesterday morning. When he had the symptoms later in the day he became concerned and return to the emergency room. His electrocardiogram looks unremarkable. His troponin levels are just out of normal range at 0.06 and are flat. There are not significantly elevated in comparison to the hospitalization yesterday. It was rather obvious the patient had not suffered an abrupt stent thrombosis in my opinion. His symptoms also bare no resemblance to his previous ischemic complaints. I did not believe was necessary to repeat any ischemia evaluation he was reassured that his condition was stable and he is being discharged again this morning. Status at Discharge Functional status at discharge: independent ambulation Time Spent with Patient Time attestation: Total time spent providing and/or coordinating discharge services: Time spent: Less than 30 minutes Exam Const: General: comfortable and no acute distress Other: Pleasant overweight white male comfortable cooperative watching television Eyes: Sclera: sclerae normal Pupils: Equal, round and reactive pupils present Neck: Neck: supple and no JVD Thyroid: thyroid normal Other: carotid pulses normal no audible bruits Resp: Effort & Inspection: normal respiratory effort Auscultation: clear to auscultation bilaterally Cardio: Rate: regular rate Rhythm: regular rhythm Other: PMI of normal location and activity no murmur no gallop no rub GI: GI Palp: Yes Soft to palpation Auscultation: normal bowel sounds Skin: General skin exam: normal color Extrem: General: normal to inspection DS: Data Data Completed and Pending Labs on day of discharge: Labs from last 24 hours 05/23/21 05/23/21 05/23/21 21:14 19:34 16:29 WBC RBC Hgb Hct MCV MCH MCHC RDW Plt Count MPV Immature Gran % (Auto) Neut % (Auto) Lymph % (Auto) [place] % (Auto) Eos % (Auto) Baso % (Auto) Lymph # (Auto) [place] # (Auto) Eos # (Auto) Baso # (Auto) Abs Immat Gran (auto) Absolute Neuts (auto) Absolute Nucleated RBC Nucleated RBC % PT INR APTT Sodium 134 L Potassium 4.3 Chloride 99 Carbon Dioxide 23 Anion Gap 12 BUN 15 Creatinine 0.80 Estim Creat Clear Calc 122 Estimated GFR > 60 Glucose 233 H Calcium 9.1 Troponin I 0.069 H* 0.070 H* 0.068 H* 05/23/21 05/23/21 16:29 16:29 WBC 9.2 RBC 5.66 Hgb 16.8 Hct 50.7 MCV 89.6 MCH 29.7 MCHC 33.1 RDW 12.4 Plt Count 203 MPV 10.8 H Immature Gran % (Auto) 0.9 H Neut % (Auto) 64.7 Lymph % (Auto) 23.1 [place] % (Auto) 7.8 Eos % (Auto) 2.8 Baso % (Auto) 0.7 Lymph # (
== END 2021-05-24 11:15 | disposition home or self-care (01) ==
LOC: ANHED 17:15 → ANHIMU 18:04
PROVIDERS: Emergency Medicine; Admitting Provider Internal Medicine Cardiovascular Disease; Emergency Provider Emergency Medicine; PCP Family Medicine; Visit Provider Specialist
DX: R07.89 Other chest pain (principal); I25.2 Old myocardial infarction; I10 Essential (primary) hypertension; E78.5 Hyperlipidemia, unspecified; E03.9 Hypothyroidism, unspecified; E11.9 Type 2 diabetes mellitus without complications; Z87.891 Personal history of nicotine dependence; Z95.5 Presence of coronary angioplasty implant and graft; Z79.4 Long term (current) use of insulin
CPT/HCPCS: 36415; 71046; 80048; 84484; 85025; 85610; 85730; 93005; 99285; A9270; G0378; J7120

== ENCOUNTER 2021-10-11 08:29 | Observation (INO) | payer BC, SELFPAY ==
[2021-10-11] VITALS (11 sets, daily range): BP systolic 126–173; BP diastolic 69–99; PULSE 63–80; RESP 10–18; TEMP 36.3–36.7; O2SAT 96–99; BMI 33.5
--- NOTE | ~2021-10-11 | XR_ITS ---
EXAMINATION: XR chest 2V DATE: 10/11/2021 09:03 INDICATION: Chest pain. TECHNIQUE: Frontal and lateral views of the chest were obtained. COMPARISON: Chest 2 views 05/23/2021 FINDINGS: The chest demonstrates clear lungs without pneumonia, pleural effusion, or pneumothorax. Th e heart size is normal. IMPRESSION: 1. No acute cardiopulmonary disease. Reviewed, dictated and finalized at location [facility]. [facility]
--- NOTE | 2021-10-11 08:34 | ECG_ITS ---
Measurements Intervals [place] Rate: 72 P: 37 LA: 163 QRS: -15 QRSD: 98 T: 12 QT: 383 QTc: 421 Interpretive Statements SINUS RHYTHM CONSIDER INFERIOR INFARCT, AGE INDETERMINATE ABNORMAL ECG Electronically Signed On 10-11-2021 8:40:22 [employer] TENDER by Alfa Kay D.O.
[2021-10-11 08:51] LABS: Basophils Absolute Auto 0.1 K/mm3 (0.0-0.1); Basophils Percent Auto 0.8 % (0.2-1.2); Eosinophils Absolute Auto 0.3 K/mm3 (0-0.3); Eosinophils Percent Auto 3.7 % (0-4.4); Hematocrit 49.8 % (42.0-52.0); Hemoglobin 17.1 g/dL (14.0-18.0); Immature Granulocyte Absolute 0.08 K/mm3 (0.00-0.031); Immature Granulocyte Percent A 0.9 % (0-0.5); Lymphocytes Absolute Auto 2.06 K/mm3 (0.9-3.2); Lymphocytes Percent Auto 23.6 % (18.3-44.2); Mean Corpuscular HGB Conc 34.3 g/dl (32-36); Mean Corpuscular Hemoglobin 30.3 pg (26-34); Mean Corpuscular Volume 88.1 fl (80-100); Monocytes Absolute Auto 0.5 K/mm3 (0.1-0.6); Monocytes Percent Auto 5.8 % (2.6-8.5); Neutrophils Absolute Auto 5.7 K/mm3 (1.3-6.7); Neutrophils Percent Auto 65.2 % (45.5-73.1); Platelet Count Result 228 k/mm3 (150-375); Red Blood Count 5.65 M/mm3 (4.6-6.20); Red Cell Distribution Width 12.1 % (11.5-14.5); White Blood Count 8.7 K/mm3 (4.5-10.0)
[2021-10-11 09:02] LABS: INR 0.9; Prothrombin Time 12.4 Seconds (11.1-14.7)
[2021-10-11 09:04] LABS: Partial Thromboplastin Time 27.5 SECONDS (22.3-36.8)
[2021-10-11 09:12] LABS: Alanine Aminotransferase 33 U/L (4-50); Albumin Level 4.5 g/dL (3.5-5.1); Alkaline Phosphatase 69 U/L (38-126); Anion Gap 9 mmol/L (8-16); Aspartate Amino Transferase 28 U/L (17-59); Bilirubin,Total 1.8 mg/dL (0.2-1.3); Blood Urea Nitrogen 26 mg/dL (9-20); Calcium 8.9 mg/dL (8.4-10.2); Carbon Dioxide 25 mmol/L (22-30); Chloride 101 mmol/L (98-107); Estimated CRCL calculation 140 ml/min; Estimated Glomerular Filt Rate > 60; Glucose 179 mg/dL (65-110); Lipase 80 U/L (23-300); Potassium 4.4 mmol/L (3.4-5.0); Sodium 135 mmol/L (137-145)
[2021-10-11 09:22] LABS: Troponin I < 0.012 ng/mL (0.000-0.034)
[2021-10-11] MEDS: ASPIRIN 81 MG CHEWABLE TABLET 324 MG PO (09:42)
--- NOTE | 2021-10-11 11:49 | ED.CHESTPAIN ---
HPI - Chest Pain General Chief Complaint: Chest Pain Stated Complaint: chest pain, onset 1 wk Time Seen by Provider: 10/11/21 11:32 Source: patient Mode of arrival: ambulatory Limitations: no limitations History of Present Illness HPI narrative: This is a 50 year old male with history of hypertension, CAD, ME s/p stent who presents for evaluation of left chest pain. He had been having left anterior chest pain that radiates to left neck and arm. He states pain is intermittent . He states pain may last for up to 4 hours. He states he still has mild chest pain that he rates 3/10. He states pain occurs with exertion and rest so he is unsure of exacerbating factors. He has chronic shortness of breath. He denies cough, fever, chills or edema. HE has been taking nitroglycerin at home with minimal improvement. He last took nitroglycerin this morning. He has not taken any of his morning medications. 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 MD complaint: chest pain Pertinent past history: coronary artery disease and prior ME Onset (ago): week(s) Timing of current episode: episodic Prior episodes: Yes Onset: during rest and during exertion Pain location: left chest Pain radiation: left arm Relieving factors: nothing Exacerbating factors: nothing Related Data Home Medications Medication Instructions Recorded Confirmed Farxiga 10 mg PO DAILY 08/07/20 05/23/21 insulin aspart U-100 [Novolog See Protocol SUBCUT TIDWMEAL 08/07/20 05/23/21 Flexpen U-100 Insulin] metformin 1,000 mg PO BID 08/07/20 05/23/21 atorvastatin 80 mg PO HS 05/14/21 05/23/21 azelastine 1 drp OPHTHALMIC (EYE) PRN PRN 05/14/21 05/23/21 escitalopram oxalate 10 mg PO DAILY 05/14/21 05/23/21 levothyroxine [Euthyrox] 125 mcg PO 0600 05/14/21 05/23/21 lisinopril 40 mg PO DAILY 05/14/21 05/23/21 ezetimibe 10 mg PO DAILY 10/11/21 10/11/21 Allergies Allergy/AdvReac Type Severity Reaction Status Date / Time No Known Allergies Allergy Unknown Verified 10/11/21 11:19 Review of Systems Review of Systems: All systems reviewed & are unremarkable except as noted in HPI and below PMFSH Past Medical History Medical History Anxiety Coronary artery disease Myocardial infarction in 2001 status post PCI to the right coronary artery. Patient of Dr. Bran Lorenzo. Dyslipidemia Hypertension Hypothyroidism Psoriasis Type 2 diabetes mellitus Viral myocarditis Surgical History Surgical History History of arthroscopy of left knee History of inguinal hernia repair History of percutaneous coronary intervention (2001) PCI to the right coronary artery. History of ventral hernia repair Family History Family History Mother Diabetes mellitus Heart disease Sibling Acute myocardial infarction Diabetes mellitus Heart disease Father Acute myocardial infarction Heart disease Social History Social History (Updated 05/14/21 @ 21:03 by Radha Fish PA-C) Social History: The patient lives with his girlfriend in [place]. 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 13 pack-year smoking history, quit about 8 years ago. No alcohol or illicit substance abuse. He designates his mother, Sera Perez, as his surrogate decision maker and he wishes to be a full code. Smoking packs per day: 1 Smoking cigarettes per day: 20.0 Years smoked: 13 Smoking pack-years: 13.00 Smoking status: Former smoker Alcohol intake: never Substance use: never Gender identity (if verbalized by the patient): Male Spiritual care concerns: No Exam Const: General: no acute distress and alert Orientation/consciousness: patient oriented x3 HENMT: Head: normocephalic and atraumatic Face and sinus: sinuses nontender and face symmetric Throat: posterior oropharynx
[2021-10-11 11:59] LABS: Troponin I < 0.012 ng/mL (0.000-0.034)
[2021-10-11] MEDS: MORPHINE SULFATE (*CRX) 4 MG/ML INJ IV PUSH (12:23)
[2021-10-11] MEDS: ONDANSETRON INJ 4 MG/2 ML VIAL IV PUSH (12:23)
[2021-10-11 12:43] LABS: D Dimer 0.27 ug/mL (<0.48)
[2021-10-11 15:17] LABS: Troponin I < 0.012 ng/mL (0.000-0.034)
--- NOTE | 2021-10-11 16:01 | PC.NURSE ---
Meal given at this time to patient.
[2021-10-11 20:45] LABS: Glucose Point of Care 146 mg/dl (65-105)
[2021-10-12] VITALS (7 sets, daily range): BP systolic 137–138; BP diastolic 75–77; PULSE 60–89; RESP 14–18; TEMP 36.6–36.8; O2SAT 96–99
--- NOTE | 2021-10-12 00:15 | ADMGEN ---
This patient, Girish Perez, was admitted to IMU Room 210-01. Patient/family oriented to hospital policies and general routines including ID bracelet, bed and alarms, visiting hours, pain management, procedures, bathroom and other care routines, personal items, smoking policy, room service/diet, and visiting hours. Information on how to activate the Rapid Response Team has been discussed. Patient/Family are encouraged to report perceived risks to care and to ask questions if they do not understand what they are told or what they should do.
--- NOTE | 2021-10-12 00:20 | PM.IMHP ---
H&P: HPI History of Present Illness Date/Time: 10/11/21 2300 this is a 50-year-old male patient with a history of hypertension, coronary artery disease with 4 stents. The patient presented today with some left-sided chest pain. Radiated down his left neck and left arm. The patient stated that he is had symptoms like this be in the past. His pain today lasted for hours. When he came to the emergency room his pain level was 3/10. His pain occurs with exertion and rest. He is unsure of any exacerbating factors. The patient has been taking nitroglycerin minimal improvement. The patient is still on Plavix and has been taking it faithfully. His blood sugars 146 today. His troponins are negative x2. EKG was read as sinus rhythm consider inferior infarct, age indeterminate abnormal EKG. This EKG is similar to his May EKG. Chest x-ray was read as no acute cardiopulmonary disease. Patient is being admitted to observation status on the date of service of 10/11/2021. Chief Complaint: Chest pain Review of Systems Review of Systems: All systems reviewed & are unremarkable except as noted in HPI and below Constitutional: Constitutional: Reports as per HPI and Reports no additional constitutional complaints Eyes: Eyes: Reports as per HPI and Reports no additional eye complaints ENT: Reports system reviewed and no additional complaints, except as documented and Reports Normal hearing present Cardiovascular: Cardiovascular: Reports no additional cardiovascular complaints Respiratory: Respiratory: Reports no additional respiratory complaints and Reports no additional respiratory complaints Gastrointestinal: Gastrointestinal: Reports as per HPI and Reports no additional gastrointestinal complaints Musculoskeletal: Musculoskeletal: Reports no additional musculoskeletal complaints Integumentary/Breasts: Skin/Breast: Reports system reviewed and no additional complaints, except as docu and Reports as per HPI Neurologic: Reports system reviewed and no additional complaints, except as documented, Reports as per HPI and Reports Normal hearing present Psychiatric: Psychiatric: Reports no additional psychiatric complaints and Reports as per HPI Endocrine: Endocrine: Reports no additional endocrine complaints Hematologic/Lymphatic: Hematologic/Lymphatic: Reports no additional hematologic/lymphatic complaints Allergic/Immunologic: Allergic/Immunologic: Reports no additional allergic/immunologic complaints [facility] Past Medical History Medical History Anxiety Coronary artery disease Myocardial infarction in 2001 status post PCI to the right coronary artery. Patient of Dr. Bran Lorenzo. Dyslipidemia Hypertension Hypothyroidism Psoriasis Type 2 diabetes mellitus Viral myocarditis Surgical History Surgical History (Updated 10/12/21 @ 00:35 by Sayra Murray NP) History of arthroscopy of left knee History of inguinal hernia repair Three hernias. Umbilical hernia repair, inguinal hernia repair and ventral hernia repair History of percutaneous coronary intervention (2001) PCI to the right coronary artery. Four stents. History of ventral hernia repair Family History Family History Mother Diabetes mellitus Heart disease Sibling Acute myocardial infarction Diabetes mellitus Heart disease Father Acute myocardial infarction Heart disease Social History Social History Social History: The patient lives with his girlfriend in [place]. 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 13 pack-year smoking history, quit about 8 years ago. No alcohol or illicit substance abuse. He designates his mother, Sera Perez, as his surrogate decision maker and he wishes to be a full code. Smoking packs per day: 1 Smoking cigarettes per day: 20.0 Years smoked: 13 Smoking pack-years: 13.00
[2021-10-12 01:34] LABS: Troponin I < 0.012 ng/mL (0.000-0.034)
[2021-10-12 05:47] LABS: Basophils Absolute Auto 0.1 K/mm3 (0.0-0.1); Basophils Percent Auto 0.8 % (0.2-1.2); Eosinophils Absolute Auto 0.3 K/mm3 (0-0.3); Eosinophils Percent Auto 4.4 % (0-4.4); Hematocrit 50.4 % (42.0-52.0); Hemoglobin 16.7 g/dL (14.0-18.0); Immature Granulocyte Absolute 0.05 K/mm3 (0.00-0.031); Immature Granulocyte Percent A 0.7 % (0-0.5); Lymphocytes Absolute Auto 2.43 K/mm3 (0.9-3.2); Lymphocytes Percent Auto 31.7 % (18.3-44.2); Mean Corpuscular HGB Conc 33.1 g/dl (32-36); Mean Corpuscular Hemoglobin 29.7 pg (26-34); Mean Corpuscular Volume 89.5 fl (80-100); Mean Platelet Volume 10.9 fl (7.4-10.4); Monocytes Absolute Auto 0.7 K/mm3 (0.1-0.6); Monocytes Percent Auto 8.7 % (2.6-8.5); Neutrophils Absolute Auto 4.1 K/mm3 (1.3-6.7); Neutrophils Percent Auto 53.7 % (45.5-73.1); Platelet Count Result 189 k/mm3 (150-375); Red Blood Count 5.63 M/mm3 (4.6-6.20); Red Cell Distribution Width 12.1 % (11.5-14.5); White Blood Count 7.7 K/mm3 (4.5-10.0)
[2021-10-12 05:48] LABS: Alanine Aminotransferase 48 U/L (4-50); Albumin Level 4.1 g/dL (3.5-5.1); Alkaline Phosphatase 56 U/L (38-126); Anion Gap 8 mmol/L (8-16); Aspartate Amino Transferase 48 U/L (17-59); Bilirubin,Total 2.7 mg/dL (0.2-1.3); Blood Urea Nitrogen 17 mg/dL (9-20); Calcium 8.9 mg/dL (8.4-10.2); Carbon Dioxide 29 mmol/L (22-30); Chloride 100 mmol/L (98-107); Estimated CRCL calculation 138 ml/min; Estimated Glomerular Filt Rate > 60; Glucose 158 mg/dL (65-110); Sodium 137 mmol/L (137-145)
[2021-10-12] MEDS: LEVOTHYROXINE SODIUM 125 MCG TABLET PO (06:18)
--- NOTE | 2021-10-12 08:53 | PM.CNCAR ---
Assessment and Plan Additional Plan -chest pain -history of 4 stents, most recent was May 2021 to proximal left circumflex artery. -hypertension -diabetes -psoriasis This is 50-year-old patient who presents with chest pain for the last 1 week. He states is similar to previous episodes when he required stents except that it does not having the stabbing portion. Most recent stent May 2021. At that time reported patent stents to RCA and OM. He reports compliance with taking his medications at home including aspirin and Plavix. However he takes aspirin and Plavix on empty stomach and that sometimes can cause chest pain and epigastric pain. He just ate breakfast right now. Troponins negative and EKG does not show ischemia and no events on telemetry. He had no recurrence of chest pain while he is in the hospital here. -recommend that he takes aspirin and Plavix with food. -recommend to start Protonix. -patient agreed at this time to wash symptoms for the next 1 week and if there is recurrent episodes then we can arrange for outpatient cardiac catheterization. Unfortunately he ate breakfast this morning . -okay to discharge home. Please prescribe Protonix History of Present Illness History of Present Illness Consult date/time: Date of service 10/12/21 08:53 Requesting physician: Haven Hilliard MD Consult reason: chest pain Reason For Visit: chest pain, rule out PR Narrative: This is a 50-year-old patient with past medical history of diabetes, hypertension, hyperlipidemia and multiple coronary stents. History of distal left circumflex artery stent using 2.5 x 16 and history of mid RCA stenting using 3 x 16 drug-eluting stent 2013. Then after that he underwent cardiac catheterization May 22, 2021 and received drug-eluting stent [id number] to proximal left circumflex artery by Dr. Ashby and at that time he had patent stents in the obtuse marginal branch and distal RCA. He comes to the hospital because of left chest pressure for the last 1 week, intermittent, not relieved by nitroglycerin. He states it is similar to previous episodes except that there is no stabbing pain that he had in the past when he required stents. He reports that in May he came into the hospital with chest pain and troponins negative an EKG was okay and he underwent even stress testing that looked unremarkable and then eventually ended having recurrent chest pains and receiving stent to the left circumflex artery. He denies shortness of breath, dizziness, syncope, lower limb edema. He states that he takes aspirin and Plavix on empty stomach. His pain in the chest starts around 3:00 a.m. in the morning and continues for several hours. Not related to exertion. Troponins x3 negative, Chest x-ray reviewed and analyzed myself looks unremarkable. EKG reviewed and was myself looks unremarkable and shows normal sinus rhythm. No Ischemia Review of Systems Constitutional: Constitutional: Denies chills, Denies fever(s) and Denies poor appetite Eyes: Eyes: Denies eye discharge, Denies loss of vision, Denies eye pain and Denies photophobia ENT: Denies dizziness, Denies epistaxis, Denies nasal congestion and Denies sore throat Cardiovascular: Cardiovascular: Reports chest pain, Denies syncope, Denies pedal edema, Denies leg edema, Denies palpitations, Denies dyspnea, Denies dyspnea on exertion and Denies orthopnea Respiratory: Respiratory: Denies cough, Denies dyspnea, Denies dyspnea on exertion and Denies wheezing Gastrointestinal: Gastrointestinal: Denies abdominal pain, Denies diarrhea, Denies nausea and Denies vomiting Genitourinary: Genitourinary: Denies hematuria, Denies genital lesions and Denies dysuria Musculoskeletal: Musculoskeletal: Denies arthralgias, Denies joint swelling and Denies numbness Integumentary/Breasts: Skin/Breast: Denies pruritus and Denies rash Neurologic: Denies dizziness, Denies syncope, Denies loss of vision and Denies numbness
[2021-10-12 09:29] LABS: Glucose Point of Care 179 mg/dl (65-105)
[2021-10-12] MEDS: carvediloL 3.125 MG TABLET PO (09:40)
[2021-10-12] MEDS: EZETIMIBE 10 MG TABLET PO (09:40)
[2021-10-12] MEDS: CLOPIDOGREL BISULFATE 75 MG TABLET PO (09:40)
[2021-10-12] MEDS: ESCITALOPRAM OXALATE 10 MG TABLET PO (09:40)
[2021-10-12] MEDS: lisinopriL 20 MG TABLET 40 MG PO (09:41)
[2021-10-12] MEDS: EMPAGLIFLOZIN 25 MG TABLET PO (09:41)
[2021-10-12] MEDS: ASPIRIN 81 MG CHEWABLE TABLET PO (09:41)
[2021-10-12] MEDS: metFORMIN HCL 500 MG TABLET 1000 MG PO (09:41)
--- NOTE | 2021-10-12 11:28 | PM.DS ---
DS: Admitting Diagnosis Discharge Date 10/12/21 Admitting Diagnosis Chest pain DS: Discharge Diagnosis Discharge Diagnosis (1) Atypical chest pain: Code(s): R07.89 - Other chest pain Status: Acute Assessment and Plan: Patient is a 50-year-old man with a history of hypertension, coronary artery disease with 4 stents (most recent placed 05/2021), who presented to the ER with left sided chest pain intermittently for the last 1 week similar to prior chest pains he had with his MIs. He also states he has been having GERD and drinking a lot of Pepto-Bismol. He does not taken an acids daily. This morning did have some chest pain after eating breakfast. This pain became more severe so decided come to the emergency room for further evaluation. Initial vitals showed blood pressure 162/88, heart rate 75, afebrile, normal oxygenation on room air. Normal CBC with differential, normal coag panel, normal D-dimer, slight hyponatremia at 135, glucose 179, normal renal function, normal LFTs, negative troponin x3. Normal lipase. Chest x-ray showed no acute cardiopulmonary disease. Patient was admitted to the hospital for further workup and evaluation and consult with Cardiology who know him well from prior hospitalizations. He was seen by the clinical application manager to felt at this time the patient is stable with negative troponins and no changes to his EKG. The clinical application manager recommended discharge to continue taking aspirin Plavix with food, start Protonix, and to continue monitoring symptoms and follow-up in the office in 1 week. If he still having symptoms and they can arrange an outpatient cardiac catheterization. Discussed with the patient follow-up instructions and to return to ER warnings. The patient understands agrees the plan with discharge at this time. Patient is stable for discharge. (2) Anxiety: Code(s): F41.9 - Anxiety disorder, unspecified Status: Acute Assessment and Plan: Continue with home medication. (3) Hypothyroidism: Code(s): E03.9 - Hypothyroidism, unspecified Status: Acute Assessment and Plan: Continue with levothyroxine (4) Dyslipidemia: Code(s): E78.5 - Hyperlipidemia, unspecified Status: Acute Assessment and Plan: Atorvastatin (5) Coronary artery disease: Code(s): I25.10 - Atherosclerotic heart disease of [place] coronary artery without angina pectoris Status: Chronic Assessment and Plan: Continue with aspirin, atorvastatin, Coreg, Zetia and Plavix (6) Hypertension: Code(s): I10 - Essential (primary) hypertension Status: Chronic Assessment and Plan: Continue with Coreg and lisinopril (7) Type 2 diabetes mellitus: Code(s): E11.9 - Type 2 diabetes mellitus without complications Status: Acute Assessment and Plan: Stable. Continue meds DS: Summary Hospital Course Hospital Course: See above Status at Discharge Cognitive/behavioral status at discharge: Stable, improved. Time Spent with Patient Time attestation: Total time spent providing and/or coordinating discharge services: 40 Time spent: Greater than 30 minutes Exam Narrative: General: 50-year-old man laying flat in bed watching TV. Appears comfortable. In no acute distress. Skin: No jaundice or cyanosis. Good skin turgor. Neck: Full range of motion. Supple. Respiratory: Lungs are clear to auscultation bilaterally. No bony chest wall tenderness. Cardiovascular: The heart has a regular rate and rhythm without murmur. Lower extremities: No lower extremity edema. Distal pulses are easily palpated. No calf tenderness to palpation. Gastrointestinal: The abdomen is soft, nontender and nondistended with active bowel sounds. Psychiatric: Lucid and oriented. Memory intact. Neurologic: No focal deficits. Speech is clear. No facial drooping. DS: Data Data Completed and Pending Labs on day of discharge: Labs from last 24 h
== END 2021-10-12 13:11 | disposition home or self-care (01) ==
LOC: ANHED 11:32 → ANHICU 16:22 → ANHIMU 10-12 07:10 → ANHICU 10-13 11:51 → ANHIMU 10-13 11:51
PROVIDERS: Nurse Practitioner; Admitting Provider Internal Medicine; Emergency Provider General Practice; PCP Family Medicine; Visit Provider Physician Assistant
DX: R07.89 Other chest pain (principal); I10 Essential (primary) hypertension; I25.10 Atherosclerotic heart disease of native coronary artery without angina pectoris; I25.2 Old myocardial infarction; Z95.5 Presence of coronary angioplasty implant and graft; R06.02 Shortness of breath; E03.9 Hypothyroidism, unspecified; E11.9 Type 2 diabetes mellitus without complications; E78.5 Hyperlipidemia, unspecified; F41.9 Anxiety disorder, unspecified; L40.9 Psoriasis, unspecified; Z87.891 Personal history of nicotine dependence; Z79.4 Long term (current) use of insulin; Z79.84 Long term (current) use of oral hypoglycemic drugs; Z79.02 Long term (current) use of antithrombotics/antiplatelets; Z79.82 Long term (current) use of aspirin
CPT/HCPCS: 36415; 71046; 80053; 82948; 83690; 83735; 84443; 84484; 85025; 85380; 85610; 85730; 93005; 96374; 96375; 99285; A9270; G0378; J1650; J2270; J2405

== ENCOUNTER 2021-11-23 00:23 | Day surgery (SDC) | payer BC, SELFPAY ==
[2021-11-22 14:44] VITALS: BMI 35.2
[2021-11-23] VITALS (7 sets, daily range): BP systolic 107–145; BP diastolic 64–90; PULSE 60–75; RESP 10–18; TEMP 36.4; O2SAT 95–97; BMI 33.1
[2021-11-23] MEDS: SODIUM CHLORIDE 0.9% IV 500 ML 100 ML IV CONT (07:55)
[2021-11-23 07:59] LABS: Basophils Absolute Auto 0.1 K/mm3 (0.0-0.1); Basophils Percent Auto 0.9 % (0.2-1.2); Eosinophils Absolute Auto 0.5 K/mm3 (0-0.3); Eosinophils Percent Auto 7.2 % (0-4.4); Hematocrit 51.2 % (42.0-52.0); Hemoglobin 17.2 g/dL (14.0-18.0); Immature Granulocyte Absolute 0.03 K/mm3 (0.00-0.031); Immature Granulocyte Percent A 0.5 % (0-0.5); Lymphocytes Percent Auto 25.6 % (18.3-44.2); Mean Corpuscular HGB Conc 33.6 g/dl (32-36); Mean Corpuscular Volume 89.4 fl (80-100); Mean Platelet Volume 10.5 fl (7.4-10.4); Monocytes Absolute Auto 0.6 K/mm3 (0.1-0.6); Monocytes Percent Auto 8.6 % (2.6-8.5); Neutrophils Absolute Auto 3.8 K/mm3 (1.3-6.7); Neutrophils Percent Auto 57.2 % (45.5-73.1); Platelet Count Result 197 k/mm3 (150-375); Red Blood Count 5.73 M/mm3 (4.6-6.20); Red Cell Distribution Width 12.7 % (11.5-14.5); White Blood Count 6.6 K/mm3 (4.5-10.0)
[2021-11-23 08:09] LABS: Anion Gap 4 mmol/L (8-16); Blood Urea Nitrogen 15 mg/dL (9-20); Calcium 9.2 mg/dL (8.4-10.2); Carbon Dioxide 26 mmol/L (22-30); Chloride 104 mmol/L (98-107); Estimated CRCL calculation 137 ml/min; Estimated Glomerular Filt Rate > 60; Glucose 195 mg/dL (65-110); INR 0.9; Potassium 4.3 mmol/L (3.4-5.0); Prothrombin Time 12.5 Seconds (11.1-14.7); Sodium 134 mmol/L (137-145)
--- NOTE | 2021-11-23 11:40 | WPDHPUPDATE1 ---
History and Physical Update Update Date/Time: 11/23/21 11:40 History and Physical has been reviewed, including an updated exam of the patient. There are NO changes in the patient's condition. Risks, benefits, and alternatives have been discussed and questions answered. Patient agrees to proceed with procedure.
--- NOTE | 2021-11-23 11:41 | WPDMODSED ---
Moderate Sedation Note-Pt Data Patient Data Allergies Allergy/AdvReac Type Severity Reaction Status Date / Time No Known Allergies Allergy Unknown Verified 11/23/21 07:40 Home Medications Medication Instructions Recorded Confirmed Type Farxiga 10 mg PO DAILY 08/07/20 11/23/21 History insulin aspart U-100 [Novolog See Protocol SUBCUT TIDWMEAL 08/07/20 11/23/21 History Flexpen U-100 Insulin] metformin 1,000 mg PO BID 08/07/20 11/23/21 History atorvastatin 80 mg PO HS 05/14/21 11/23/21 History azelastine 1 drp OPHTHALMIC (EYE) PRN PRN 05/14/21 11/22/21 History escitalopram oxalate 10 mg PO DAILY 05/14/21 11/23/21 History levothyroxine [Euthyrox] 125 mcg PO 0600 05/14/21 11/23/21 History lisinopril 40 mg PO DAILY 05/14/21 11/23/21 History aspirin [Enteric Coated Aspirin] 81 mg PO DAILY #30 tablet 05/23/21 11/23/21 Rx clopidogrel [Plavix] 75 mg PO DAILY 30 Days #30 tablet 05/23/21 11/23/21 Rx pantoprazole 40 mg PO QAM #30 tablet 10/12/21 11/23/21 Rx carvedilol 25 mg PO Q12H 11/22/21 11/23/21 History Current Medications: Active Medications Sodium Chloride (Normal Saline Iv) 500 mls @ 100 mls/hr IV CONT .Q5H BELEN Last Admin: 11/23/21 07:55 Dose: 100 mls/hr Documented by: Sedation/Anesthesia: No previous sedation/anesthesia problems (including family history). [facility] Past Medical History Medical History Anxiety Coronary artery disease Myocardial infarction in 2001 status post PCI to the right coronary artery. Patient of Dr. Bran Lorenzo. Dyslipidemia Hypertension Hypothyroidism Psoriasis Type 2 diabetes mellitus Viral myocarditis Surgical History Surgical History History of arthroscopy of left knee History of inguinal hernia repair Three hernias. Umbilical hernia repair, inguinal hernia repair and ventral hernia repair History of percutaneous coronary intervention (2001) PCI to the right coronary artery. Four stents. History of ventral hernia repair Family History Family History Mother Diabetes mellitus Heart disease Sibling Acute myocardial infarction Diabetes mellitus Heart disease Father Acute myocardial infarction Heart disease Social History Social History Social History: The patient lives with his girlfriend in [place]. 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 13 pack-year smoking history, quit about 8 years ago. No alcohol or illicit substance abuse. He designates his mother, Sera Perez, as his surrogate decision maker and he wishes to be a full code. Smoking packs per day: 1 Smoking cigarettes per day: 20.0 Years smoked: 13 Smoking pack-years: 13.00 Smoking status: Former smoker Tobacco type: cigarettes Second hand tobacco smoke exposure: Yes Smoking end date: 11/22/21 Alcohol intake: current Alcohol use details: once or twice a year Substance use: never Substance use type: does not use Living arrangements: with friend(s) Additional living arrangements comments: lives with girlfriend Gender identity (if verbalized by the patient): Male Spiritual care concerns: No Mod Sed Physical Exam Physical Exam Pre Procedural Exam: Normal: Appearance, Eyes, Ears, Nose, Neck, Throat, Airway, Lungs, Heart Size, Heart Rate, Heart Rhythm, Neuro Exam, Abdomen, Liver, Kidneys, Spleen, Breasts, Genitalia, Extremities and Skin Hours since solid foods: 8 Hours since liquid intake: 8 Mallampati Classification: class 1 Internal Medicine - PN: Obj Da Vital Signs Vital Signs: Vital Signs - 24 hr 11/23/21 07:30 Temperature 36.4 C L Pulse Rate 67 Respiratory Rate 18 Blood Pressure 112/73 Pulse Oximetry 97 Meds/Results Medications: Active Medications Generic Name Dose Route Start Last Admin Trade Name Freq PRN Reason Stop Dose Admin Sod
--- NOTE | 2021-11-23 11:43 | WPDCARDPROC ---
Cardiac Cath Procedure Note Date of procedure:: 11/23/21 Performing physician:: Wendy Adam MD Indication:: recurrent chest pain Brief clinical history:: this is 50-year-old patient with past medical history of coronary artery disease with stents in the proximal and distal left circumflex artery, stent in the mid RCA, diabetes, hypertension, hypothyroidism who was hospitalized end of September 2021 because of recurrent chest pains. Apparently from previous hospitalizations when stress tests were done in sitting chest pain they all came out unremarkable and the cardiac catheterization showed CAD. At this time he again presents in to the hospital in September 2021 with central chest pain and negative EKG and negative troponins. At that time we agreed to observe him and continue medical management. He continues to have chest pain as an outpatient with recurrent usage of nitroglycerin. This is why we decided to bring him here to undergo cardiac catheterization. Procedure Procedure performed:: 1-Moderate sedation that started at 11:00 a.m.and ended at 11:21 a.m. using 2mg of Versed and 75mcg fentanyl. The registered nurse was kali hahn. 2-Selective left and right coronary angiogram. 3-Left heart catheterization with measurement of LVEDP and measurement of gradient across aortic valve. 4- LV angiogram. 4-Right common femoral arterial angiogram. 5-Deployment of 6 Iraqi Angio-Seal. Sedation/Medication given:: Moderate sedation. Access site:: Right common femoral artery. Estimated blood loss:: 10cc Procedure note:: After informed consent patient was brought in to laboratory courier with the was draped and prepped in usual manner. Moderate sedation was given and the right groin was infiltrated using 1% lidocaine. Five Iraqi sheath was obtained using micropuncture needle and the modified Seldinger technique. Selective left coronary angiogram was done using JL4 catheter with the tip of the catheter placed in the left main coronary artery. Selective right coronary angiogram was done using JR4 catheter with the tip of the catheter placed to the right coronary artery. After that 5 Iraqi pigtail catheter was advanced across the aortic valve into the left ventricle with measurement of LVEDP and measurement of gradient across aortic valve. LV angiogram was done as well.Right common femoral arterial angiogram was done. Findings:: 1- left coronary artery is a large artery that divides into large LAD, large circumflex artery. Left main is Free of disease. 2- left anterior descending artery is a large artery that runs and Stops before the apex. Has minimal irregularities. Medium size diagonal branch proximally and small diagonal branch distally without significant disease. 3- leftcircumflex artery is a large artery. Patent stent proximally patent stent distal. 4- right coronary artery is Large artery and dominant. There is a stent in the mid segment that has minimal InStent restenosis of about 20%. Small diagonal branch comes out of the stent and has ostial 90%. Rest of the RCA has diffuse irregularities. 5- LVEDP was 12 mm Hg and no gradient across aortic valve. 6- LV angiogram shows normal LV systolic function with estimated ejection fraction 65% and no wall motion abnormalities. 6- opening arterial pressure was 50/80 and closing pressure was 130/70. 7- right femoral artery angiogram shows no significant disease in the right common femoral artery. Conclusion:: - patent stents in proximal, distal left circumflex artery and mid RCA. - small marginal branch comes off from the mid RCA stent with ostial 90% Assessment and Plan Additional Plan - at this time recommend to continue medical management. - Due to recurrent angina we can add Ranexa 500 mg b.i.d.
--- NOTE | 2021-11-23 11:52 | ECG_ITS ---
Measurements Intervals [place] Rate: 58 P: 43 [place]: 161 QRS: -7 QRSD: 106 T: -6 QT: 419 QTc: 413 Interpretive Statements SINUS BRADYCARDIA CONSIDER INFERIOR INFARCT, AGE INDETERMINATE ABNORMAL ECG Electronically Signed On 11-23-2021 15:05:23 BATCH STILL OPERATOR by Alfa Kay D.O.
[2021-11-23] MEDS: SODIUM CHLORIDE 0.9% IV 1,000 ML 125 ML IV CONT (13:39)
--- NOTE | 2021-11-24 10:07 | PCCPR ---
Patient has previous history of CAD and stents, has diagnosis at this time of angina
== END 2021-11-23 15:53 | disposition home or self-care (01) ==
PROVIDERS: PCP Family Medicine; Visit Provider Internal Medicine Cardiovascular Disease
PROC: 4A023N7 Measurement of Cardiac Sampling and Pressure, Left Heart, Percutaneous Approach (ICD-10-PCS; CPT 93452; principal; 2021-11-23 09:00)
DX: I25.10 Atherosclerotic heart disease of native coronary artery without angina pectoris (principal); R07.9 Chest pain, unspecified; T82.855A Stenosis of coronary artery stent, initial encounter; Y83.8 Other surgical procedures as the cause of abnormal reaction of the patient, or of later complication, without mention of misadventure at the time of the procedure; I10 Essential (primary) hypertension; E03.9 Hypothyroidism, unspecified; E11.9 Type 2 diabetes mellitus without complications; F41.9 Anxiety disorder, unspecified; L40.9 Psoriasis, unspecified; I25.2 Old myocardial infarction; Z95.5 Presence of coronary angioplasty implant and graft; Z79.02 Long term (current) use of antithrombotics/antiplatelets; Z79.84 Long term (current) use of oral hypoglycemic drugs; Z79.4 Long term (current) use of insulin; Z87.891 Personal history of nicotine dependence
CPT/HCPCS: 36415; 80048; 85025; 85610; 93005; 93458; C1760; C1887; C1894; G0269; J1644; J2250; J3010; J7030; J7040

== ENCOUNTER 2022-06-18 10:18 | Outpatient (CLI) | payer BC, SELFPAY ==
--- NOTE | ~2022-06-18 | US_ITS ---
EXAMINATION: US soft tissue groin RT DATE: 06/18/2022 11:12 INDICATION: Right inguinal hernia. TECHNIQUE: Multiple grayscale and Doppler ultrasound images of the right inguinal region were obtaine d. COMPARISON: None FINDINGS: There is no abnormal mass, lymphadenopathy, or hernia in the patient's area of concern in r ight inguinal region. IMPRESSION: 1. No abnormal mass, lymphadenopathy, or hernia in the patient's area of concern in right inguinal re gion. Reviewed, dictated and finalized at location A. IMPRESSION: 1. No abnormal mass, lymphadenopathy, or hernia in the patient's area of concer n in right inguinal region.
== END 2022-06-18 10:19 | disposition home or self-care (01) ==
PROVIDERS: PCP Family Medicine; Visit Provider Physician Assistant
DX: K40.90 Unilateral inguinal hernia, without obstruction or gangrene, not specified as recurrent (principal)
CPT/HCPCS: 76882

== ENCOUNTER 2024-10-07 04:50 | Emergency (ER) | payer BC, SELFPAY ==
--- NOTE | ~2024-10-07 | XR_ITS ---
Clinical Indication: Shortness of breath PA and lateral views of the chest: Comparison: 10/11/2021 Findings: The lungs are clear, without evidence of focal consolidation or pleural effusion. Cardiome diastinal silhouette is within normal limits. Bones and soft tissues are unremarkable. Impression: Normal chest. Reviewed, dictated and finalized at location . HEAD PUMPER Impression: Normal chest.
--- NOTE | ~2024-10-07 | CT_ITS ---
Clinical Indication: Pulmonary embolus CT Scan of the Chest with Contrast: Technique: Contiguous sections were acquired throughout the chest after intravenous administration of 100 cc of Omnipaque 350. Dose reduction technique was used on this scan by utilizing automated expos ure control and iterative reconstruction technique. The dose-length product (DLP) was 901.96 mGy-cm. Findings: There is no evidence of any significant mediastinal, hilar or axillary lymphadenopathy. There is no f illing defect in the pulmonary arterial tree to suggest pulmonary embolus. There is no evidence of ao rtic dissection or aneurysm. There is no evidence of pleural or pericardial effusion. The lungs are clear. No pulmonary nodules or infiltrates are noted. Images through the upper abdomen reveal small gallstones. Impression: No evidence of pulmonary embolus, aortic dissection, or aortic aneurysm. Clear lungs. Reviewed, dictated and finalized at [facility]. DEFENSE INSTRUCTOR Impression: No evidence of pulmonary embolus, aortic dissection, or aortic aneurysm. Clear lungs.
--- NOTE | 2024-10-07 04:56 | ECG_ITS ---
Test Date: 2024-10-07 04:59:07 Measurements Intervals [place] Rate: 75 P: 25 HI: 160 QRS: -17 QRSD: 97 T: -6 QT: 386 QTc: 431 Interpretive Statements SINUS RHYTHM NONSPECIFIC ST AND T WAVE ABNORMALITY No previous ECG available for comparison Electronically Signed On 10-07-2024 14:28:26 BICYCLE II ASSEMBLER by Abbie Weathers M.D.
[2024-10-07 04:57] VITALS: BP 151/93; PULSE 77; RESP 13; TEMP 36.7; O2SAT 97
[2024-10-07 05:04] VITALS: PULSE 76; O2SAT 99
[2024-10-07 05:05] VITALS: O2SAT 98
[2024-10-07 05:14] LABS: Basophils Percent Auto 0.5 % (0.2-1.2); Eosinophils Absolute Auto 0.2 K/mm3 (0-0.3); Eosinophils Percent Auto 2.6 % (0-4.4); Hematocrit 51.7 % (42.0-52.0); Hemoglobin 17.8 g/dL (14.0-18.0); Immature Granulocyte Absolute 0.05 K/mm3 (0.00-0.031); Immature Granulocyte Percent A 0.6 % (0-0.5); Lymphocytes Absolute Auto 2.06 K/mm3 (0.9-3.2); Lymphocytes Percent Auto 26.7 % (18.3-44.2); Mean Corpuscular HGB Conc 34.4 g/dl (32-36); Mean Corpuscular Hemoglobin 30.7 pg (26-34); Mean Corpuscular Volume 89.3 fl (80-100); Mean Platelet Volume 10.7 fl (7.4-10.4); Monocytes Absolute Auto 0.6 K/mm3 (0.1-0.6); Monocytes Percent Auto 8.2 % (2.6-8.5); Neutrophils Absolute Auto 4.7 K/mm3 (1.3-6.7); Neutrophils Percent Auto 61.4 % (45.5-73.1); Platelet Count Result 209 k/mm3 (150-375); Red Blood Count 5.79 M/mm3 (4.6-6.20); Red Cell Distribution Width 12.2 % (11.5-14.5); White Blood Count 7.7 K/mm3 (4.5-10.0)
[2024-10-07] MEDS: ASPIRIN 81 MG CHEWABLE TABLET 324 MG PO (05:15)
[2024-10-07 05:23] LABS: Alanine Aminotransferase 36 U/L (6-50); Albumin Level 4.8 g/dL (3.5-5.1); Alkaline Phosphatase 64 U/L (38-126); Anion Gap 7 mmol/L (4-12); Aspartate Amino Transferase 31 U/L (17-59); Bilirubin,Total 2.3 mg/dL (0.2-1.3); Blood Urea Nitrogen 17 mg/dL (9-20); Calcium 9.4 mg/dL (8.4-10.2); Carbon Dioxide 26 mmol/L (22-30); Chloride 103 mmol/L (98-107); Estimated CRCL calculation 139 ml/min; Estimated Glomerular Filt Rate > 60; Glucose 240 mg/dL (65-110); Lipase 78 U/L (23-300); Potassium 4.4 mmol/L (3.4-5.0); Sodium 136 mmol/L (137-145)
[2024-10-07 05:25] LABS: Partial Thromboplastin Time 25.7 Seconds (22.3-36.8); Prothrombin Time 13.3 Seconds (11.1-14.7)
--- NOTE | 2024-10-07 05:32 | ED_ITS ---
HPI - General Adult General Chief complaint: Shortness of Breath/Dyspnea <Victorino Wick MD - Last Filed: 10/07/24 06:56> Stated complaint: sob when supine <Victorino Wick MD - Last Filed: 10/07/24 06:56> Time Seen by Provider: 10/07/24 04:57 <Victorino Wick MD - Last Filed: 10/07/24 06:56> History of Present Illness HPI narrative: In a 53-year-old gentleman presents emergency department chief complaint of shortness of breath. Patient reports that he has prior history of cardiac disease reports he has had some intermittent episodes of tightness in his chest the patient states also he has been getting short of breath reports that it is worse whenever he tries to leave and he states for the last 2 nights that he has not been able to get comfortable to be able to sleep because of the shortness of breath patient also reports episodes of PND <Victorino Wick MD - Last Filed: 10/07/24 06:56> Related Data Home medications: Home Medications ?Medication ?Instructions ?Recorded ?Confirmed ?Last Taken ?Type dapagliflozin propanediol 10 mg 10 mg PO DAILY 08/07/20 06/28/22 11/21/21 20:00 History tablet (Farxiga) insulin aspart U-100 100 unit/mL See Protocol subcut TIDWMEAL 08/07/20 06/28/22 11/21/21 20:00 History (3 mL) subcutaneous pen (Novolog FlexPen U-100 Insulin aspart) metformin 1,000 mg tablet 1,000 mg PO BID 08/07/20 06/28/22 11/21/21 20:00 History atorvastatin 80 mg tablet 80 mg PO HS 05/14/21 06/28/22 11/22/21 20:00 History azelastine 0.05 % eye drops 1 drp ophthalmic (eye) PRN PRN 05/14/21 06/28/22 Unknown History Itching escitalopram oxalate 10 mg tablet 10 mg PO DAILY 05/14/21 06/28/22 11/22/21 20:00 History levothyroxine 125 mcg tablet 125 mcg PO 0600 05/14/21 06/28/22 11/22/21 20:00 History (Euthyrox) lisinopril 40 mg tablet 40 mg PO DAILY 05/14/21 06/28/22 11/22/21 20:00 History carvedilol 3.125 mg tablet 25 mg PO Q12H 11/22/21 06/28/22 11/22/21 20:00 History <Victorino Wick MD - Last Filed: 10/07/24 06:56> Allergies/adverse reactions: Allergies Allergy/AdvReac Type Severity Reaction Status Date / Time No Known Allergies Allergy Unknown Verified 10/07/24 05:05 <Victorino Wick MD - Last Filed: 10/07/24 06:56> Review of Systems 2 Review of Systems: A 10 system review of systems was completed on the patient and is negative except for what is stated in the HPI. Nursing and ancillary documentation was reviewed. <Victorino Wick MD - Last Filed: 10/07/24 06:56> [facility] Past Medical History Medical History: Medical History Anxiety Hypothyroidism Psoriasis Dyslipidemia Viral myocarditis Type 2 diabetes mellitus Hypertension Coronary artery disease Myocardial infarction in 2001 status post PCI to the right coronary artery. Patient of Dr. Bran Lroenzo. <Victorino Wick MD - Last Filed: 10/07/24 06:56> Surgical History Surgical History: Surgical History History of arthroscopy of left knee History of ventral hernia repair History of inguinal hernia repair Three hernias. Umbilical hernia repair, inguinal hernia repair and ventral hernia repair History of percutaneous coronary intervention (2001) PCI to the right coronary artery. Four stents. <Victorino Wick MD - Last Filed: 10/07/24 06:56> Family History Family History: Family History Mother Diabetes mellitus Heart disease Sibling Acute myocardial infarction Diabetes mellitus Heart disease Father Acute myocardial infarction Heart disease <Victorino Wick MD - Last Filed: 10/07/24 06:56> Social History Social History: Social History Social History: The patient lives with his girlfriend in [place]. 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 13 pack-year smoking history, quit about 8 years ago. No alcohol or illicit substance abuse. He designates his mother, Sera Perez, as his surrogate decision maker and he wishes to be a full code. Smoking packs per day: 1 Smoking cigarettes per day: 20.0 Years smoked: 13 Smoking pack-years: 13.00 Smoking status: Former smoker Tobacco type: cigarettes Second hand tobacco smoke exposure: Yes Smoking end date: 11/22/21 Alcohol intake: current Alcohol use details: once or twice a year Substance use: never Substance use type: does not use Living arrangements: with friend(s) Additional living arrangements comments: lives with girlfriend Gender identity (if verbalized by the patient): Male Spiritual care concerns: No <Victorino Wick MD - Last Filed: 10/07/24 06:56> Exam 2 Narrative: GENERAL: Well-appearing, well-nourished, and in no acute distress. HEAD: Normocephalic, atraumatic. EYES: PERRLA and EOMI. ENT: Nares clear, no rhinorrhea or epistaxis. Mucous membranes moist. NECK: Supple. CHEST: Clear to auscultation. No respiratory distress. HEART: Regular rate and rhythm. No murmur heard. Normal peripheral pulses. ABDOMEN: Soft, nontender, nondistended, normal active bowel sounds. EXTREMITIES: Normal range of motion. No edema. SKIN: Warm, dry, no rash. NEURO: No focal deficits. Alert and oriented x3. PSYCH: Normal mood and affect. <Victorino Wick MD - Last Filed: 10/07/24 06:56> Course Course Emergency Course: I assumed care of this pt at shift change with pending CTA chest , i did reviewed his chart and work up , pt is resting on the bed in no discomfort , i did inform him about his lab and CTA findings , advised him to follow with his PMD for further work up if needed for Sleep Apnea. <Dixon Hector MD - Last Filed: 10/07/24 07:40> Vital Signs Vital signs: Vital Signs Temperature 36.7 C 10/07/24 04:57 Pulse Rate 77 10/07/24 04:57 Respiratory Rate 13 10/07/24 04:57 Blood Pressure 151/93 H 10/07/24 04:57 Pulse Oximetry 97 10/07/24 04:57 Oxygen Delivery Room Air 10/07/24 04:57 Temperature 36.7 C 10/07/24 04:57 Pulse Rate 60 10/07/24 06:17 Respiratory Rate 16 10/07/24 06:17 Blood Pressure 125/71 10/07/24 06:17 Pulse Oximetry 98 10/07/24 06:17 Oxygen Delivery Room Air 10/07/24 05:05 <Victorino Wick MD - Last Filed: 10/07/24 06:56> Vital Signs Temperature 36.7 C 10/07/24 04:57 Pulse Rate 77 10/07/24 04:57 Respiratory Rate 13 10/07/24 04:57 Blood Pressure 151/93 H 10/07/24 04:57 Pulse Oximetry 97 10/07/24 04:57 Oxygen Delivery Room Air 10/07/24 04:57 Temperature 36.7 C 10/07/24 04:57 Pulse Rate 60 10/07/24 06:17 Respiratory Rate 16 10/07/24 06:17 Blood Pressure 125/71 10/07/24 06:17 Pulse Oximetry 98 10/07/24 06:17 Oxygen Delivery Room Air 10/07/24 05:05 <Dixon Hector MD - Last Filed: 10/07/24 07:40> Medical Decision Making MDM Narrative Medical decision making narrative: Differential diagnosis includes CHF, pulmonary embolism, chest pain, ACS EKG showed no acute ischemic changes initial troponin was negative BNP was negative Currently a CTA chest and a repeat troponin are pending home be signing out care to the day provider <Victorino Wick MD - Last Filed: 10/07/24 06:56> Vital Signs Vital Signs: Vital Signs Temperature 36.7 C 10/07/24 04:57 Pulse Rate 77 10/07/24 04:57 Respiratory Rate 13 10/07/24 04:57 Blood Pressure 151/93 H 10/07/24 04:57 Pulse Oximetry 97 10/07/24 04:57 Oxygen Delivery Room Air 10/07/24 04:57 Temperature 36.7 C 10/07/24 04:57 Pulse Rate 60 10/07/24 06:17 Respiratory Rate 16 10/07/24 06:17 Blood Pressure 125/71 10/07/24 06:17 Pulse Oximetry 98 10/07/24 06:17 Oxygen Delivery Room Air 10/07/24 05:05 <Victorino Wick MD - Last Filed: 10/07/24 06:56> Vital Signs Temperature 36.7 C 10/07/24 04:57 Pulse Rate 77 10/07/24 04:57 Respiratory Rate 13 10/07/24 04:57 Blood Pressure 151/93 H 10/07/24 04:57 Pulse Oximetry 97 10/07/24 04:57 Oxygen Delivery Room Air 10/07/24 04:57 Temperature 36.7 C 10/07/24 04:57 Pulse Rate 60 10/07/24 06:17 Respiratory Rate 16 10/07/24 06:17 Blood Pressure 125/71 10/07/24 06:17 Pulse Oximetry 98 10/07/24 06:17 Oxygen Delivery Room Air 10/07/24 05:05 <Dixon Hector MD - Last Filed: 10/07/24 07:40> Lab Data Result diagrams: 10/07/24 05:03 10/07/24 05:03 <Victorino Wick MD - Last Filed: 10/07/24 06:56> Labs: Lab Results 10/07/24 Range/Units 05:03 WBC 7.7 (4.5-10.0) K/mm3 RBC 5.79 (4.6-6.20) M/mm3 Hgb 17.8 (14.0-18.0) g/dL Hct 51.7 (42.0-52.0) % MCV 89.3 (80-100) fl MCH 30.7 (26-34) pg MCHC 34.4 (32-36) g/dl RDW 12.2 (11.5-14.5) % Plt Count 209 (150-375) k/mm3 MPV 10.7 H (7.4-10.4) fl Immature Gran % (Auto) 0.6 H (0-0.5) % Neut % (Auto) 61.4 (45.5-73.1) % Lymph % (Auto) 26.7 (18.3-44.2) % [place] % (Auto) 8.2 (2.6-8.5) % Eos % (Auto) 2.6 (0-4.4) % Baso % (Auto) 0.5 (0.2-1.2) % Lymph # (Auto) 2.06 (0.9-3.2) K/mm3 [place] # (Auto) 0.6 (0.1-0.6) K/mm3 Eos # (Auto) 0.2 (0-0.3) K/mm3 Baso # (Auto) 0.0 (0.0-0.1) K/mm3 Abs Immat Gran (auto) 0.05 H (0.00-0.031) K/mm3 Absolute Neuts (auto) 4.7 (1.3-6.7) K/mm3 Absolute Nucleated RBC 0.000 (0.0-0.012) K/mm3 Nucleated RBC % 0.0 (0.0-0.2) % PT 13.3 (11.1-14.7) Seconds INR 1.0 APTT 25.7 (22.3-36.8) Seconds Sodium 136 L (137-145) mmol/L Potassium 4.4 (3.4-5.0) mmol/L Chloride 103 (98-107) mmol/L Carbon Dioxide 26 (22-30) mmol/L Anion Gap 7 (4-12) mmol/L BUN 17 (9-20) mg/dL Creatinine 0.70 (0.7-1.3) mg/dL Estim Creat Clear Calc 139 ml/min Estimated GFR > 60 (59 - ) Glucose 240 H (65-110) mg/dL Calcium 9.4 (8.4-10.2) mg/dL Total Bilirubin 2.3 H (0.2-1.3) mg/dL AST 31 (17-59) U/L ALT 36 (6-50) U/L Alkaline Phosphatase 64 (38-126) U/L Troponin I < 0.012 (0.000-0.034) ng/mL NT-Pro-B Natriuret Pep < 20 (19.9-100) pg/mL Total Protein 8.0 (6.3-8.2) g/dL Albumin 4.8 (3.5-5.1) g/dL Lipase 78 (23-300) U/L <Victorino Wick MD - Last Filed: 10/07/24 06:56> Lab Results 10/07/24 Range/Units 05:03 WBC 7.7 (4.5-10.0) K/mm3 RBC 5.79 (4.6-6.20) M/mm3 Hgb 17.8 (14.0-18.0) g/dL Hct 51.7 (42.0-52.0) % MCV 89.3 (80-100) fl MCH 30.7 (26-34) pg MCHC 34.4 (32-36) g/dl RDW 12.2 (11.5-14.5) % Plt Count 209 (150-375) k/mm3 MPV 10.7 H (7.4-10.4) fl Immature Gran % (Auto) 0.6 H (0-0.5) % Neut % (Auto) 61.4 (45.5-73.1) % Lymph % (Auto) 26.7 (18.3-44.2) % [place] % (Auto) 8.2 (2.6-8.5) % Eos % (Auto) 2.6 (0-4.4) % Baso % (Auto) 0.5 (0.2-1.2) % Lymph # (Auto) 2.06 (0.9-3.2) K/mm3 [place] # (Auto) 0.6 (0.1-0.6) K/mm3 Eos # (Auto) 0.2 (0-0.3) K/mm3 Baso # (Auto) 0.0 (0.0-0.1) K/mm3 Abs Immat Gran (auto) 0.05 H (0.00-0.031) K/mm3 Absolute Neuts (auto) 4.7 (1.3-6.7) K/mm3 Absolute Nucleated RBC 0.000 (0.0-0.012) K/mm3 Nucleated RBC % 0.0 (0.0-0.2) % PT 13.3 (11.1-14.7) Seconds INR 1.0 APTT 25.7 (22.3-36.8) Seconds Sodium 136 L (137-145) mmol/L Potassium 4.4 (3.4-5.0) mmol/L Chloride 103 (98-107) mmol/L Carbon Dioxide 26 (22-30) mmol/L Anion Gap 7 (4-12) mmol/L BUN 17 (9-20) mg/dL Creatinine 0.70 (0.7-1.3) mg/dL Estim Creat Clear Calc 139 ml/min Estimated GFR > 60 (59 - ) Glucose 240 H (65-110) mg/dL Calcium 9.4 (8.4-10.2) mg/dL Total Bilirubin 2.3 H (0.2-1.3) mg/dL AST 31 (17-59) U/L ALT 36 (6-50) U/L Alkaline Phosphatase 64 (38-126) U/L Troponin I < 0.012 (0.000-0.034) ng/mL NT-Pro-B Natriuret Pep < 20 (19.9-100) pg/mL Total Protein 8.0 (6.3-8.2) g/dL Albumin 4.8 (3.5-5.1) g/dL Lipase 78 (23-300) U/L <Dixon Hector MD - Last Filed: 10/07/24 07:40> Discharge Plan Discharge Clinical Impression: Chest pain Qualifiers: Chest pain type: unspecified Qualified Code(s): R07.9 - Chest pain, unspecified Dyspnea Qualifiers: Dyspnea type: unspecified Qualified Code(s): R06.00 - Dyspnea, unspecified <Victorino Wick MD - Last Filed: 10/07/24 06:56> Patient Disposition: Still a Patient <Victorino Wick MD - Last Filed: 10/07/24 06:56> Condition: Stable <Victorino Wick MD - Last Filed: 10/07/24 06:56> Patient Language: Malay <Victorino Wick MD - Last Filed: 10/07/24 06:56> Prescriptions: No Action metformin 1,000 mg tablet 1,000 mg PO BID insulin aspart U-100 [Novolog FlexPen U-100 Insulin] 100 unit/mL (3 mL) insulin pen See Protocol SUBCUT TIDWMEAL Protocol: Insulin Corrective Moderate-Dose Condition: glucose < 70 mg/dl Dose/Route: Follow hypoglycemia orders Condition: glucose 70-200 mg/dl Dose/Route: No additional insulin Condition: glucose 201-250 mg/dl Dose/Route: 3 units sub-Q Condition: glucose 251-300 mg/dl Dose/Route: 4 units sub-Q Condition: glucose 301-350 mg/dl Dose/Route: 5 units sub-Q Condition: glucose 351-400 mg/dl Dose/Route: 6 units sub-Q Condition: glucose > 400 mg/dl Dose/Route: Call Protocol Text: *No Correction Dose at Bedtime* Rx Instructions: unsure sliding scale typically 30-40 units per meal Farxiga 10 mg tablet 10 mg PO DAILY carvedilol 3.125 mg tablet 25 mg PO Q12H ranolazine [Ranexa] 500 mg tablet extended release 12 hr 500 mg PO Q12H Qty: 60 3RF lisinopril 40 mg Tablet 40 mg PO DAILY escitalopram oxalate 10 mg Tablet 10 mg PO DAILY atorvastatin 80 mg Tablet 80 mg PO HS azelastine 0.05 % Drops 1 drp ophthalmic (eye) PRN PRN (Reason: Itching) levothyroxine [Euthyrox] 125 mcg tablet 125 mcg PO 0600 aspirin [Enteric Coated Aspirin] 81 mg tablet,delayed release (DR/EC) 81 mg PO DAILY Qty: 30 5RF clopidogrel [Plavix] 75 mg Tablet 75 mg PO DAILY 30 Days Qty: 30 5RF pantoprazole 40 mg Tablet,Delayed Release (Dr/Ec) 40 mg PO QAM Qty: 30 0RF <Victorino Wick MD - Last Filed: 10/07/24 06:56> Follow-up/Referrals: Galileaossi,NIKI Portillo [Primary Care Provider] - <Victorino Wick MD - Last Filed: 10/07/24 06:56> Time of Disposition: 07:40 <Victorino Wick MD - Last Filed: 10/07/24 06:56> 07:40 <Dixon Hector MD - Last Filed: 10/07/24 07:40>
[2024-10-07 05:35] LABS: Troponin I < 0.012 ng/mL (0.000-0.034)
[2024-10-07 05:38] LABS: NT Pro B Type Natriuretic Pept < 20 pg/mL (19.9-100)
[2024-10-07 06:17] VITALS: BP 125/71; PULSE 60; RESP 16; O2SAT 98
[2024-10-07 07:55] VITALS: BP 145/80; PULSE 75; RESP 18; TEMP 37; O2SAT 99
== END 2024-10-07 07:56 | disposition home or self-care (01) ==
PROVIDERS: Emergency Medicine; Emergency Provider Family Medicine; PCP Physician Assistant
DX: R07.9 Chest pain, unspecified (principal); R06.00 Dyspnea, unspecified; Z79.4 Long term (current) use of insulin; E03.9 Hypothyroidism, unspecified; E78.5 Hyperlipidemia, unspecified; E11.9 Type 2 diabetes mellitus without complications; I10 Essential (primary) hypertension; I25.10 Atherosclerotic heart disease of native coronary artery without angina pectoris; Z87.891 Personal history of nicotine dependence
CPT/HCPCS: 36415; 71046; 71275; 80053; 83690; 83880; 84484; 85025; 85610; 85730; 93005; 99284; A9270; Q9967

== ENCOUNTER 2024-12-09 07:43 | Outpatient (CLI) | payer BC, SELFPAY ==
--- NOTE | ~2024-12-09 | NM_ITS ---
EXAMINATION: NM hepatobiliary w pharm DATE: 12/09/2024 13:07 EMERGENCY ROOM PHYSICIAN ASSISTANT INDICATION: Gallstones. COMPARISON: MRCP dated 11/03/2024. TECHNIQUE: 4.9 mCi Tc-99m mebrofenin (Choletec) was administered intravenously. Scintigraphic images of the abdomen were obtained for one hour. At the 1 hour time point, [3 mcg sincalide (Kinevac) was administered by slow intravenous infusion, and imaging was continued for 30 minutes. Gallbladder ejec tion fraction was calculated by the technologist.] FINDINGS: There is normal clearance of radiotracer from the blood pool. There is homogeneous tracer u ptake by the liver. Activity progresses to the gallbladder and bowel. Gallbladder ejection fraction is 38% (normal 10-90%, but most patient with gallbladder dysfunction have GBEF < 35%).] IMPRESSION: 1. Normal hepatobiliary scan. Reviewed, dictated and finalized at location B. GENCY ROOM PHYSICIAN ASSISTANT
--- OUTSIDE RECORDS SUMMARY | 2024-12-09 07:46 | XMS_ITS | Continuity of Care Document ---
Author Organization [facility] Address [address] [place] [address] [place] [address] Phone Care Team Providers Care Felt Pad Cutter Name Role Phone Thomas Somers Unavailable Unavailable Procedures Procedure Date Office/outpatient Visit, Est Visual Field Examination(s) Eye Exam, New Patient Advance Directives Directive Yes / No Effective Date File Name No Information Encounters Encounter Description Practice Location Reason(s) For Visit Diagnoses Date Provider Providers Copied on Encounter Office/outpat ient Visit, Est [facility], [address] [place] [address] [address], [place], [place], [id number], [place] tel:[phone] [facility] No Information 7-200 8 Krishnasamy Thomas. [address] [place] [address], [address], [place]. tel:[phone] [facility], [address] [place] [address] [address], [place], [place], [id number], [place] tel:[phone] [facility] No Information 3-200 8 Krishnasamy Thomas. [address] [place] [address], [address], [place]. tel:[phone] Referring Provider: Thomas gordon, [address] [place] [address], [place], [address]. tel:[phone] [facility], [address] [place] [address] [address], [place], [place], [id number], [place] tel:[phone] [facility] No Information [address] Lizbet Guzman. [address] [facility] [address], [place], [address], [place]. tel:[phone] Family History Family Member Type Diagnosis Age At Onset No Information Payers Payer name Insurance type Covered libertarian ID Authoriza tion(s) No Information Social History Type Description Quantity Date Captured Comments Sex Male Smoking Status No Information Chief Complaint And Reason For Visit No Information Reason For Referral Reason For Referral No Information History Of Present Illness Encounter Date Complaint History Of Prese nt Illness No Information Functional Status Date Functional Assessmen t No Information Instructions Date Instruction Additional Infor mation No Information Assessments Type Assessment Date No Information Patient Care Teams Name Effective Dates (start - stop) Status Members No Information
--- OUTSIDE RECORDS SUMMARY | 2024-12-09 07:46 | XMS_ITS | Clinical Summary ---
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 Gender Identity Not on file Sexual Orientation Not on file Plan of Treatment Health Maintenance Due Date Last Done Comments Hepatitis C Virus (HCV) Screening 1968 TdaP Immunization 1968 Hepatitis B Immunization (1 of 3 - 19+ 3-dose series) 1987 Colonoscopy 2013 Colorectal Cancer Screening 2013 Cologuard 2018 Immunochemical Fecal Occult Blood 2018 Pneumococcal Immunization (5 0+ years) (1 of 1 - PCV) 2018 Zoster Immunization (1 of 2) 2018 PSA Discussion 2023 Influenza Immunization (#1) 2024 SARS-COV-2 Immunization ( - season) 2024 Respiratory Syncytial Virus (RSV) Immunization (Adult) (1 - 1-dose 75+ series) 2043 Meningococcal Immunization (ACWY) Aged Out No longer eligible based on patient's age to complete this topic Pneumococcal Immunization Combined Aged Out No longer eligible based on patient's age to complete this topic Rotavirus Immunization Aged Out No lo nger eligible based on patient's age to complete this topic
--- OUTSIDE RECORDS SUMMARY | 2024-12-09 07:47 | XMS_ITS | Data Portability ---
Author Organization [facility] Address [address] [place] [address] Care Team Providers Care Autocad Detailer Name Role Phone LINDSEY SEGURA Primary Care Provider Unavailab le Assessment No assessment recorded. Plan of Treatment Reminders Order Date Submit Date Provider Last Modified By Organization Details Last Modified Time Details Appointments ANY 15 2024 07:30A M KATYA Clemens Not available Not available Not available Lab CMP, serum or plasma 2023 024 IVON Jaimes, [address], [place], [address], 10/16/2024 09:07:36 CBC w/ auto diff 2023 024 IOVN Jaimes, [address], [place], [address], 10/16/2024 09:07:40 cobalamin and folate panel, serum 2023 024 IVON Jaimse, [address], [place], [address], 10/16/2024 09:07:37 lipid panel, serum 2023 024 IVON Jaimes, [address], [place], [address], 10/16/2024 09:07:34 PSA, total, serum or plasma 2023 024 IVON Jaimes, [address], [place], [address], 10/16/2024 09:07:41 HbA1c (hemoglob in A1c), blood 2023 024 IVON [facility], [address], [place], [address], 10/16/2024 09:07:39 microalbu min, urine 2023 024 [email or web address] [facility], [address], [place], [address], 11/19/2024 14:00:46 albumin/c reatinine , mass ratio, urine 2023 024 IVON [facility], [address], [place], [address], 10/16/2024 09:07:33 HbA1c (hemoglob in A1c), blood 2023 024 [email or web address] In-Office Order, Internal Use Only DO Not Attach Compendium DO Not Attach Compendium, Do Not Delete/merge, [id number] 09/24/2024 15:01:24 noninvasi ve colorecta l cancer DNA + occult blood screening , QL, stool 2023 DUBBERLY [facility] (Cologuard Orders Only), [address], [address], [place], [address], 10/27/2024 10:45:37 TSH + free T4, serum 2023 IVON [facility], [address], [place], [address], 10/16/2024 09:07:35 Referral diabetic ophthalmo logy referral 2023 IVON Arellano, [address], [place], [address], 10/27/2024 10:51:11 Procedures None recorded. Surgeries None recorded. Imaging NM, gastric emptying scan - PER SU @ [facility] NO PRECERT IS REQUIRED, REF # [id number] 2024 025 [facility] (Imaging), [address] [place] [address] [address], [place], [address], 12/04/2024 16:45:25 NM, hepatobil iary scan, w/ CCK 2024 025 [facility] (Imaging), [facility] [address], [place], [address], 11/20/2024 15:58:36 Medication Orders Lantus Solostar U-100 Insulin 100 unit/mL (3 mL) subcutane ous pen 2024 025 [facility] 2425, [address] [facility], [place], [address], 11/20/2024 15:08:37 escitalop alton 10 mg tablet 2024 025 [facility] 2425, [address] [facility], [place], [address], 11/20/2024 15:08:36 metformin ER 500 mg tablet,ex tended release 24 hr [address], [address] [facility], [place], [address], 09/24/2024 14:54:14 Ozempic 0.25 mg or 0.5 mg (2 mg/3 mL) subcutane ous pen injector 2023 024 [facility] 2425, [address] [facility], [place], [address], 09/24/2024 14:54:25 levothyro xine 125 mcg tablet [email or web address] [place] [address] 2425, [address] [facility], [place], [address], 09/24/2024 14:54:14 Patient TargetsNo targets recorded. Patient Instructions Encounter Date Encounter Id Patient Instructions Last Modified By Organization Details Last Modified Time 09/24/2024 [id number] A healthy lifestyle: care instructions Not available 09/24/2024 14:54:14 11/20/2024 [id number] A healthy lifestyle: care instructions Not available 11/20/2024 15:08:31 Reason for Referral Diabetic Ophthalmology Refer ral for Uncontrolled type 2 diabetes mellitus Referring Physician: Lindsey Segura, Internal Medicine, Encounter Date: 09/24/2024 Results Created Date Observation Date Name Description Value Unit Range Abnormal Flag Note LastModifiedBy Organization Detail LastModifiedTime 09/24/20 24 09/24/2024 HbA1c (hemo globi n A1c), blood HbA1c 8.6 Not Available In-Office Order Internal Use Only DO Not Attach Compendium DO Not Attach Compendium, Do Not Delete/merge, [id number] 09/24/2024 15:01:13 10/15/20 24 10/16/2024 ALBUM IN/CR EATIN INE RATIO ,URIN E creatinine, urine 112.9 mg/dL notest ab. Not Available [facility] ([facility]) [address] [facility], [place], [address], 10/16/2024 09:07:33 10/15/20 24 10/16/2024 ALBUM IN/CR EATIN INE RATIO ,URIN E albumin, urine 3.4 ug/mL notest ab. Not Available [facility] ([facility]) [address] [facility], [place], [address], 10/16/2024 09:07:33 10/15/20 24 10/16/2024 ALBUM IN/CR EATIN INE RATIO ,URIN E alb/creat ratio 3 mg/g_ creat 0-29 Krystyna l: 0 - 29 Moder ately incre ased: 30 - 300 Sever charles incre ased: >300 Not Available [facility] ([facility]) [address] [facility], [place], [address], 10/16/2024 09:07:33 10/15/20 24 10/16/2024 LIPID PANEL W/ CHOL/ HDL RATIO cholesterol, total 105 mg/dL 100-19 9 Not Available [facility] ([facility]) [address] [facility], [place], [address], 10/16/2024 09:07:34 10/15/20 24 10/16/2024 LIPID PANEL W/ CHOL/ HDL RATIO triglyceride s 147 mg/dL 0-149 Not Available [facility] ([facility]) [address] [place], [address], 10/16/2024 09:07:34 10/15/20 24 10/16/2024 LIPID PANEL W/ CHOL/ HDL RATIO HDL cholesterol 32 mg/dL >39 below low normal Not Available [facility] ([facility]) [address] [place], [address], 10/16/2024 09:07:34 10/15/20 24 10/16/2024 LIPID PANEL W/ CHOL/ HDL RATIO VLDL cholesterol dakota 25 mg/dL 5-40 Not Available [facility] ([facility]) [address] [place], [address], 10/16/2024 09:07:34 10/15/20 24 10/16/2024 LIPID PANEL W/ CHOL/ HDL RATIO LDL chol calc ([facility]) 48 mg/dL 0-99 Not Available [facility] ([facility]) [address] [place], [address], 10/16/2024 09:07:34 10/15/20 24 10/16/2024 LIPID PANEL W/ CHOL/ HDL RATIO T. chol/HDL ratio 3.3 ratio 0.0-5. 0 T. Chol/ HDL Ratio Men Women 1/2 Avg.R isk 3.4 3.3 Avg.R isk 5.0 4.4 2X Avg.R isk 9.6 7.1 3X Avg.R isk 23.4 11.0 Not Available [facility] ([facility]) [address] [facility] [place], [address], 10/16/2024 09:07:34 10/15/20 24 10/16/2024 TSH+F REE T4 TSH 1.980 uIU/m L 0.450- 4.500 Not Available [facility] ([facility]) [address] [facility] [place], [address], 10/16/2024 09:07:35 10/15/20 24 10/16/2024 TSH+F REE T4 T4,free(dire ct) 1.83 NG/dL 0.82-1 .77 above high normal Not Available [facility] ([facility]) [address] [place], [address], 10/16/2024 09:07:35 10/15/20 24 10/16/2024 COMP. METAB OLIC PANEL (14) glucose 166 mg/dL 70-99 above high normal Not Available [facility] ([facility]) [address] [facility] [place], [address], 10/16/2024 09:07:36 10/15/20 24 10/16/2024 COMP. METAB OLIC PANEL (14) BUN 20 mg/dL 6-24 Not Available [facility] ([facility]) [address] [place], [address], 10/16/2024 09:07:36 10/15/20 24 10/16/2024 COMP. METAB OLIC PANEL (14) creatinine 1.05 mg/dL 0.76-1 .27 Not Available [facility] ([facility]) [address] [facility] [place], [address], 10/16/2024 09:07:36 10/15/20 24 10/16/2024 COMP. METAB OLIC PANEL (14) eGFR 84 mL/mi n/1.7 3 >59 Not Available [facility] ([facility]) [address] [facility], [place], [address], 10/16/2024 09:07:36 10/15/20 24 10/16/2024 COMP. METAB OLIC PANEL (14) BUN/creatini ne ratio 19 9-20 Not Available [facility] ([facility]) [address] [facility], [place], [address], 10/16/2024 09:07:36 10/15/20 24 10/16/2024 COMP. METAB OLIC PANEL (14) sodium 138 mmol/ L 134-14 4 Not Available [facility] ([facility]) [address] [place], [address], 10/16/2024 09:07:36 10/15/20 24 10/16/2024 COMP. METAB OLIC PANEL (14) potassium 4.8 mmol/ L 3.5-5. 2 Not Available [facility] ([facility]) [address] [facility], [place], [address], 10/16/2024 09:07:36 10/15/20 24 10/16/2024 COMP. METAB OLIC PANEL (14) chloride 97 mmol/ L 96-106 Not Available [facility] ([facility]) [address] [facility] [place], [address], 10/16/2024 09:07:36 10/15/20 24 10/16/2024 COMP. METAB OLIC PANEL (14) carbon dioxide, total 26 mmol/ L 20-29 Not Available [facility] ([facility]) [address] [facility] [place], [address], 10/16/2024 09:07:36 10/15/20 24 10/16/2024 COMP. METAB OLIC PANEL (14) calcium 10.9 mg/dL 8.7-10 .2 above high normal Not Available [facility] ([facility]) [address] [facility] [place], [address], 10/16/2024 09:07:36 10/15/20 24 10/16/2024 COMP. METAB OLIC PANEL (14) protein, total 6.8 g/dL 6.0-8. 5 Not Available [facility] ([facility]) [address] [facility], [place], [address], 10/16/2024 09:07:36 10/15/20 24 10/16/2024 COMP. METAB OLIC PANEL (14) albumin 4.5 g/dL 3.8-4. 9 Not Available [facility] ([facility]) [address] [facility], [place], [address], 10/16/2024 09:07:36 10/15/20 24 10/16/2024 COMP. METAB OLIC PANEL (14) globulin, total 2.3 g/dL 1.5-4. 5 Not Available [facility] ([facility]) [address] [facility], [place], [address], 10/16/2024 09:07:36 10/15/20 24 10/16/2024 COMP. METAB OLIC PANEL (14) bilirubin, total 1.7 mg/dL 0.0-1. 2 above high normal Not Available [facility] ([facility]) [address] [facility], [place], [address], 10/16/2024 09:07:36 10/15/20 24 10/16/2024 COMP. METAB OLIC PANEL (14) alkaline phosphatase 57 IU/L 44-121 Not Available [facility] ([facility]) [address] [facility], [place], [address], 10/16/2024 09:07:36 10/15/20 24 10/16/2024 COMP. METAB OLIC PANEL (14) AST (SGOT) 17 IU/L 0-40 Not Available [facility] ([facility]) [address] [facility], [place], [address], 10/16/2024 09:07:36 10/15/20 24 10/16/2024 COMP. METAB OLIC PANEL (14) ALT (SGPT) 24 IU/L 0-44 Not Available [facility] ([facility]) [address] [facility], [place], [address], 10/16/2024 09:07:36 10/15/20 24 10/16/2024 VITAM IN B12 AND FOLAT E vitamin B12 659 pg/mL 232-12 45 Not Available [facility] ([facility]) [address] [facility], [place], [address], 10/16/2024 09:07:37 10/15/20 24 10/16/2024 VITAM IN B12 AND FOLAT E folate (folic acid), serum 9.4 NG/mL >3.0 A serum folat e juliann ntrat ion of less than 3.1 ng/mL is consi dered to repre sent clini dakota defic iency . Not Available [facility] ([facility]) [address] [facility], [place], [address], 10/16/2024 09:07:37 10/15/20 24 10/16/2024 HEMOG LOBIN A1C hemoglobin A1C 9.0 % 4.8-5. 6 above high normal Predi abete s: 5.7 - 6.4 Diabe chano: >6.4 Glyce miguel contr ol for adult s with diabe chano: <7.0 Not Available [facility] ([facility]) [address] [facility], [place], [address], 10/16/2024 09:07:39 10/15/20 24 10/16/2024 CBC WITH DIFFE RENTI AL/PL ATELE T WBC 7.4 x10e3 /uL 3.4-10 .8 Not Available [facility] ([facility]) [address] [facility], [place], [address], 10/16/2024 09:07:40 10/15/20 24 10/16/2024 CBC WITH DIFFE RENTI AL/PL ATELE T RBC 5.54 x10e6 /uL 4.14-5 .80 Not Available [facility] ([facility]) [address] [facility], [place], [address], 10/16/2024 09:07:40 10/15/20 24 10/16/2024 CBC WITH DIFFE RENTI AL/PL ATELE T hemoglobin 16.9 g/dL 13.0-1 7.7 Not Available [facility] ([facility]) [address] [facility], [place], [address], 10/16/2024 09:07:40 10/15/2010/16/2024 CBC WITH DIFFE RENTI AL/PL ATELE T hematocrit 50.3 % 37.5-5 1.0 Not Available [facility] ([facility]) [address] [facility], [place], [address], 10/16/2024 09:07:40 10/15/20 24 10/16/2024 CBC WITH DIFFE RENTI AL/PL ATELE T MCV 91 fL 79-97 Not Available [facility] ([facility]) [address] [place], [address], 10/16/2024 09:07:40 10/15/20 24 10/16/2024 CBC WITH DIFFE RENTI AL/PL ATELE T MCH 30.5 pg 26.6-3 3.0 Not Available [facility] ([facility]) [address] [place], [address], 10/16/2024 09:07:40 10/15/20 24 10/16/2024 CBC WITH DIFFE RENTI AL/PL ATELE T MCHC 33.6 g/dL 31.5-3 5.7 Not Available [facility] ([facility]) [address] [place], [address], 10/16/2024 09:07:40 10/15/20 24 10/16/2024 CBC WITH DIFFE RENTI AL/PL ATELE T RDW 12.2 % 11.6-1 5.4 Not Available [facility] ([facility]) [address] [facility], [place], [address], 10/16/2024 09:07:40 10/15/20 24 10/16/2024 CBC WITH DIFFE RENTI AL/PL ATELE T platelets 229 x10e3 /uL 150-45 0 Not Available [facility] ([facility]) [address] [facility], [place], [address], 10/16/2024 09:07:40 10/15/20 24 10/16/2024 CBC WITH DIFFE RENTI AL/PL ATELE T neutrophils 56 % notest ab. Not Available [facility] ([facility]) [address] [facility], [place], [address], 10/16/2024 09:07:40 10/15/20 24 10/16/2024 CBC WITH DIFFE RENTI AL/PL ATELE T lymphs 32 % notest ab. Not Available [facility] ([facility]) [address] [facility], [place], [address], 10/16/2024 09:07:40 10/15/20 24 10/16/2024 CBC WITH DIFFE RENTI AL/PL ATELE T monocytes 8 % notest ab. Not Available [facility] ([facility]) [address] [place], [address], 10/16/2024 09:07:40 10/15/20 24 10/16/2024 CBC WITH DIFFE RENTI AL/PL ATELE T eos 3 % notest ab. Not Available [facility] ([facility]) [address] [place], [address], 10/16/2024 09:07:40 10/15/20 24 10/16/2024 CBC WITH DIFFE RENTI AL/PL ATELE T basos 1 % notest ab. Not Available [facility] ([facility]) [address] [place], [address], 10/16/2024 09:07:40 10/15/20 24 10/16/2024 CBC WITH DIFFE RENTI AL/PL ATELE T neutrophils (absolute) 4.1 x10e3 /uL 1.4-7. 0 Not Available [facility] ([facility]) [address] [facility], [place], [address], 10/16/2024 09:07:40 10/15/20 24 10/16/2024 CBC WITH DIFFE RENTI AL/PL ATELE T lymphs (absolute) 2.4 x10e3 /uL 0.7-3. 1 Not Available [facility] ([facility]) [address] [facility], [place], [address], 10/16/2024 09:07:40 10/15/20 24 10/16/2024 CBC WITH DIFFE RENTI AL/PL ATELE T monocytes(ab solute) 0.6 x10e3 /uL 0.1-0. 9 Not Available [facility] ([facility]) [address] [facility], [place], [address], 10/16/2024 09:07:40 10/15/20 24 10/16/2024 CBC WITH DIFFE RENTI AL/PL ATELE T eos (absolute) 0.2 x10e3 /uL 0.0-0. 4 Not Available [facility] ([facility]) [address] [place], [address], 10/16/2024 09:07:40 10/15/20 24 10/16/2024 CBC WITH DIFFE RENTI AL/PL ATELE T baso (absolute) 0.0 x10e3 /uL 0.0-0. 2 Not Available [facility] ([facility]) [address] [place], [address], 10/16/2024 09:07:40 10/15/20 24 10/16/2024 CBC WITH DIFFE RENTI AL/PL ATELE T immature granulocytes 0 % notest ab. Not Available [facility] ([facility]) [address] [facility], [place], [address], 10/16/2024 09:07:40 10/15/20 24 10/16/2024 CBC WITH DIFFE RENTI AL/PL ATELE T immature grans (abs) 0.0 x10e3 /uL 0.0-0. 1 Not Available [facility] ([facility]) [address] [facility], [place], [address], 10/16/2024 09:07:40 10/15/20 24 10/16/2024 PROST ATE-S PECIF IC AG prostate specific Ag <0.1 NG/mL 0.0-4. 0 Nader ECLIA metho dolog y. Accor ding to the Ameri can Urolo gical Assoc iatio n, Serum PSA shoul d decre ase and remai n at undet ectab le level s after radic al prost atect davis. The AUA defin es bioch emica l recur rence as an initi al PSA value 0.2 ng/mL or great er follo wed by a subse quent confi rmato ry PSA value 0.2 ng/mL or great er. Value s obtai angelo with diffe rent assay metho ds or kits canno t be used inter betancourt eably . Resul ts canno t be inter prete d as absol [place] evide nce of the prese nce or absen ce of binta jacques se. Not Available [facility] ([facility]) [address] [facility], [place], [address], 10/16/2024 09:07:41 10/23/19 25 10/23/2024 COLOG UARD cologuard result reportable NEGATI VE negati ve normal NEGAT ERNESTO TEST RESUL T. A negat ernesto Colog uard resul t indic ates a low likel ihood that a color ectal cance r (CRC) or advan tabitha adeno ma (emma omato us polyp s with more advan tabitha pre-m align ant featu res) is prese nt. The chanc e that a perso n with a negat ernesto Colog uard test has a color ectal cance r is less than 1 in 1500 (nega tive predi ctive value >99.9 %) or has an advan tabitha adeno ma is less than 5.3% (nega tive predi ctive value 94.7% ). These data are based on a prosp ectiv e cross -sect ional study of 10,00 0 indiv idual s at [facility] risk for color ectal cance r who were scree angelo with both Colog uard and colon oscop y. (Impe bakari T. et al, N Engl J Med 2014; 370(1 4):12 86-12 97) The krystyna l value (refe rence range ) for this assay is negat ernesto. COLOG UARD RE-SC REENI NG RECOM MENDA TION: Perio dic color ectal cance r scree tom is an impor tant part of preve ntive healt hcare for asymp tomat ic indiv idual s at [facility] risk for color ectal cance r. Follo wing a negat ernesto Colog uard resul t, the Ameri can Cance r Socie ty and U.S. Multi -Soci ety Task Force scree tom guide lines recom mend a Colog uard re-sc reeni ng inter leatha of 3 years . Refer ences : Ameri can Cance r Socie ty Guide line for Color ectal Cance r Scree tom: https ://annie w.can cer.o rg/ca ncer/ colon -rect al-ca ncer/ detec tion- diagn osis- stagi ng/ac s-rec ommen datio ns.ht ml.; Javier BAY, Ann NETTLES, Janie IQBAL, Color ectal Cance r Scree tom: Recom menda tions for Physi cians and Patie nts from the U.S. Multi -Soci ety Task Force on Color ectal Cance r Scree tom , Am J Gastr oente rolog y 2017; 112:1 016-1 030. TEST DESCR IPTIO N: Indio site algor ithmi c joel sis of stool DNA-b iokg kers with hemog lobin immun oassa y. Quant itati ve value s of indiv idual bioma rkers are not repor table and are not assoc iated with indiv idual bioma rker resul t refer ence range s. Colog uard is inten ded for color ectal cance r scree tom of adult s of eithe r sex, 45 years or older , who are at [facility] for color ectal cance r (CRC) . Colog uard has been appro hanna for use by the U.S. FDA. The perfo rmanc e of Colog uard was estab lishe d in a cross secti onal study of [facility] adult s aged 50-84 . Colog uard perfo rmanc e in patie nts ages 45 to 49 years was estim ated by sub-g roup joel sis of near- age group s. Colon oscop ies perfo rmed for a posit ernesto resul t may find as the most clini juanjo signi fican t lesio n: color ectal cance r [4.0% ], advan tabitha adeno ma (incl uding sessi le nataly chema polyp s great er than or equal to 1cm diame ter) [20%] or non- advan tabitha adeno ma [31%] ; or no color ectal neopl saira [45%] . These estim ates are deriv ed from a prosp ectiv e cross -sect ional scree tom study of 10,00 0 indiv idual s at [facility] risk for color ectal cance r who were scree angelo with both Colog uard and colon oscop y. (Melva Reddy al, N Engl J Med 2014; 370(1 4):12 86-12 97.) Colog uard may produ ce a false negat ernesto or false posit ernesto resul t (no color ectal cance r or preca ncero us polyp prese nt at colon oscop y follo w up). A negat ernesto Colog uard test resul t does not guara ntee the absen ce of CRC or advan tabitha adeno ma (pre- cance r). The curre nt Colog uard scree tom inter leatha is every 3 years . (Hong Vu r Socie ty and U.S. Multi -Soci ety Task Force ). Colog uard perfo rmanc e data in a 10,00 0 patie nt pivot al study using colon oscop y as the refer ence metho d can be acces sed at the follo wing locat ion: www.e xactl abs.c om/re sults . Addit ional descr iptio n of the Colog uard test proce ss, warni ngs and preca ution s can be found at www.c joshuaogu tonya.c om. Not Available [facility] (Cologuard Orders Only) [address], [place], [address], 10/27/2024 10:45:37 10/07/20 24 10/07/2024 CT, angio gram, chest , w/ contr ast No observ ation record ed. [address] [address], [place], [address], 10/07/2024 12:37:31 10/28/19 25 10/28/2024 imagi ng inter preta tion No observ ation record ed. [address] [address], [place], [address], 10/29/2024 08:58:09 11/02/19 25 11/02/2024 XR, chest , 2 view No observ ation record ed. [address] [address], [place], [address], 11/02/2024 13:35:06 11/03/19 25 11/03/2024 MR, elizabeth ngiop ancre atogr am, w/ contr ast No observ ation record ed. [address] [address], [place], [address], 11/20/2024 14:45:07 11/23/19 25 11/02/2024 exerc ise stres s test No observ ation record ed. Not Available 11/23 16:43:13 11/23/19 25 11/02/2024 , echo antonio gram No observ ation record ed. BARCODE Not Available 2024 15:30:06 Result Notes None recorded. Problems Name Problem SNOMED Code Status Onset Date Resolution Date Notes Provider Name and Address Organization Details Recorded Time Body mass index 30+ - obesity 448771689 Active 2023 Jeffrey Spann MA null, [place] - [facility] 4 14:17:32 History of placement of stent for coronary artery disease 785625018 Active 2023 KATYA Clemens Attn: Truman jacobson,[address] [place], [place], [address] [place] [address] 2, [place] - [facility] 4 21:24:02 Coronary atherosclerosi s 543254867 Active 2023 KATYA Clemens Attn: Truman jacobson,[address] [place], [place], [address] [place] [address] 2, [place] - [facility] 4 21:24:02 Uncontrolled type 2 diabetes mellitus 715526288 Active 2023 KATYA Clemens Attn: Truman jacobson,[address] [place], [place], [address] [place] [address] 2, [place] [facility] 4 21:24:04 Benign essential hypertension 9502836 Active 2023 KATYA Clemens Attn: Truman g,[address] [place], [place], [address] [place] [address], [place] [facility] 4 21:24:07 Hyperlipidemia 83988247 Active 2023 KATYA Clemens Attn: Truman g,[address] [place], [place], [address] [place] [address] 2, [place] [facility] 4 21:24:21 Hypothyroidism 30566466 Active 2023 KTAYA Clemens Attn: Truamn jacobson,[address] [place], [place], [address] [place] [address] 2, [place] - [facility] 4 21:25:07 Obesity 741748359 Active 2023 KATYA Clemens Attn: Truman jacobson,[address] [facility], [place], [address], [place] [facility] 4 21:25:11 [place] 246346194 Active 2024 KATYA Clemens Attn: Truman jacobson,[address] [facility], [place], [address], [place] [facility] 5 18:36:21 Nausea 380988331 Active 2024 KATYA Clemens Attn: Truman jacobson,[address] [facility], [place], [address], [facility] - [facility] 5 18:36:22 Long-term drug therapy Active 2024 KATYA Clemens Attn: Truman jacobson,[address] [facility], [place], [address], [facility] - [facility] 5 18:37:11 Problem Notes None recorded. Procedures Surgical History Date Name Laterality Status Provider Name and Address Organization Details Recorded Time Angioplasty With Stent completed Jeffrey Spann MA [facility] 09/24/2024 14:35:07 Hernia Repair completed Jeffrey Spann MA [facility] 09/24/2024 14:35:11 Imaging Results Imaging Date Name Status LastModified by Organization Details LastModified Time 10/07/2024 CT, angiogram, chest, w/ contrast completed [address], [address], 10/07/2024 12:37:31 10/28/2024 imaging interpretation completed [address], [address], 10/29/2024 08:58:09 11/02/2024 XR, chest, 2 view [address], [address], 11/02/2024 13:35:06 11/03/2024 MR, cholangiopancreato gram, w/ contrast completed [address] [facility] [address], [place], [address], 11/20/2024 14:45:07 11/02/2024 exercise stress test completed Information not available 11/23/2024 16:43:13 11/02/2024 US, echocardiogram completed [facility] Inform ation not available 11/23/2024 15:30:06 Procedure Notes None recorded. Medical Equipment None Reported. Allergies No known drug allergies Medications Name Sig Start Date Stop Date Status Note LastModified by Organization Details LastModified Time atorvastati n 80 mg tablet TAKE 1 TABLET BY MOUTH NIGHTLY active Not Available Not Available No t Available carvedilol 25 mg tablet Take 1 tablet twice a day by oral route. active Not Available Not Available No t Available clopidogrel 75 mg tablet Take 1 tablet every day by oral route. active Not Available Not Available No t Available metformin 1,000 mg tablet Take 1 tablet every day by oral route. 10/15 completed Not Available Not Available Not Available levothyroxi ne 125 mcg tablet Take 1 tablet every day by oral route. active Not Available Not Available No t Available lisinopril 40 mg tablet Take 1 tablet every day by oral route. active Not Available Not Available No t Available metformin ER 500 mg tablet,exte nded release 24 hr Take 4 tablets every day by oral route at dinner. active Not Available Not Available No t Available escitalopra m 10 mg tablet TAKE 1 TABLET BY MOUTH ONCE DAILY active Not Available Not Available No t Available ezetimibe 10 mg tablet TAKE 1 TABLET BY MOUTH ONCE DAILY (TAKE IN ADDITION TO ATORVASTA TIN) active Not Available Not Available No t Available Novolin R Regular U100 Insulin 20 units PRN active Not Available Not Available No t Available ranolazine ER 500 mg tablet,exte nded release,12 hr TAKE 1 TABLET BY MOUTH TWICE DAILY active Not Available Not Available No t Available Lantus Solostar U-100 Insulin 100 unit/mL (3 mL) subcutaneou s pen INJECT 12 UNITS SUBCUTANE OUSLY ONCE DAILY active Not Available Not Available No t Available Farxiga 10 mg tablet Take 1 tablet every day by oral route. active Not Available Not Available No t Available ranolazine ER 500 mg granules,ex tended release in packet Take 1 packet twice a day by oral route. active Not Available Not Available No t Available Ozempic 0.25 mg or 0.5 mg (2 mg/3 mL) subcutaneou s pen injector week 1-4: inject 0.25mg one time a weekweek 5 onward: inject 0.5mg one time per week. active Not Available Not Available No t Available Vitals Date Recorded Body weight Body mass index (BMI) Body height Oxygen saturation Oxygen saturation in Arterial blood by Pulse oximetry Heart rate Systolic blood pressure Diastolic blood pressure Provider Name and Address Organization Details Last Updated DateTime 4 729997. 16 g 36.2 kg/m2 182.88 cm 98 % 98 % 76 /min 128 mm[Hg] 82 mm[Hg] Jeffrey Spann MA [facility] 4 14:19:01 Date Recorded Respiratory rate Systolic blood pressure Diastolic blood pressure Provider Name and Address Organization Details Last Updated DateTime 09/24/2024 18 /min 122 mm[Hg] 80 mm[Hg] KATYA Clemens Attn: Accounting, [address] [place], [address], [facility] 09/24/2024 14:51:25 Date Recorded Body height Body mass index (BMI) Body weight Heart rate Oxygen saturation Oxygen saturation in Arterial blood by Pulse oximetry Systolic blood pressure Diastolic blood pressure Provider Name and Address Organization Details Last Updated DateTime 5 182.88 cm 32.9 kg/m2 177948. 43 g 81 /min 98 % 98 % 138 mm[Hg] 74 mm[Hg] Joanie Foster MA [facility] 5 14:39:35 Social History Question Answer Notes LastModified by Organizat ion Details LastModified Time Tobacco Smoking Status Former Smoker Jeffrey Spann MA null, [facility] 09/24/2024 14:35:35 Do You Have An Advance Directive? No Information not available 09/24/2024 What Is Your Level Of Alcohol Consumption? Occasional Information not available 09/24/2024 Are You Blind Or Do You Have Difficulty Seeing? No Readers Information not available 09/24/2024 What Is Your Level Of Caffeine Consumption? Moderate Information not available 09/24/2024 In The 14 Days Before Symptom Onset, Have You Had Close Contact With A Laboratory-confir med COVID-19 While That Case Was Ill? No Information not available 09/24/2024 In The 14 Days Before Symptom Onset, Have You Had Close Contact With A Person Who Is Under Investigation For COVID-19 While That Person Was Ill? No Information not available 09/24/2024 Have You Been To An Area Known To Be High Risk For COVID-19? No Information not available 09/24/2024 Are You Currently Employed? Yes Information not available 09/24/2024 Are You Deaf Or Do You Have Serious Difficulty Hearing? No Information not available 09/24/2024 What Type Of Diet Are You Following? 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 No Information not available 09/24/2024 What Was The Date Of Your Most Recent Tobacco Screening? 11/20/2024 mebyma Information not available 11/20/2024 What Is Your Current Pack Years? 10-19packyears Information not available 09/24/2024 Do You Use Your Seat Belt Or Car Seat Routinely? Yes Information not available 09/24/2024 Do You Have Smoke And Carbon Monoxide Detectors In Your Home? Yes Information not available 09/24/2024 How Much Tobacco Do You Smoke? No Information not available 09/24/2024 Do You Use Any Illicit Or Recreational Drugs? No Information not available 09/24/2024 Do You Use Sunscreen Routinely? No Information not available 09/24/2024 Has Tobacco Cessation Counseling Been Provided? No Information not available 09/24/2024 Do You Or Have You Ever Used Any Other Forms Of Tobacco Or Nicotine? No Information not available 09/24/2024 Sex: Male Functional Status Question Answer Note LastModified by Organization D etails LastModified Time Are you able to care for yourself? Yes Information n ot available 09/24/2024 Mental Status None recorded. Family History Nothing Reported. Medical History Condition Response Coronary Artery Disease Y Other N Atrial Fibrillation N High Blood Pressure Y Kidney or Bladder Problems N Thyroid Problems Y GI Problems N Depression N COPD N Blood Clots N Have you had a mammogram in the last yea r? N Skin Problems N Anemia N Heart Attack (ME) Y Anxiety Disorder Y Diabetes Y Muscle, Joint, or Bone Problems N Seizures/Epilepsy N Have you had a colonoscopy in the last 1 0 years? N Acid Reflux (GERD) N Cancer N Stroke N Asthma N Allergies N Have you had a PSA blood test in the las t year? N High Cholesterol Y Hepatitis N Liver Disease N Headaches N Heart Failure N Osteoporosis N Past Encounters Encounter ID Performer Location Encounter Start Date Encounter Closed Date Diagnosis/Indication Diagnosis SNOMED-CT Code Diagnosis ICD10 Code Diagnosis Note [id number] KATYA Clemens [facility] [place] [address] [facility] [address] [place] [address] 09/24/2024 13:43:56 09/24/2024 15:13:51 Body mass index 30+ - obesity 813818192 Z68.36 BMI is 36.2 Obesity 752384471 E66.9 discussed healthy diet, exercise, controllin g carbohydra chano and added sugars in the diet Uncontroll ed type 2 diabetes mellitus 410917715 E11.65 A1c is 8.6% in the office on fingerstic k check today. We will make sure patient is on 2000 mg daily total of metformin therapy and continue Farxiga 10 mg daily. We will initiate Ozempic titration course at this time with a goal to get him eventually to the 2 mg weekly dosing. We will get baseline labs including albumin urine testing and lab A1c. Coronary atherosclerosis 762578603 I25.10 Patient is asymptomat ic at this time with no dyspnea on exertionPN D or chest pain. He currently takes Plavix as well as carvedilol and ranolazine ER History of placement of stent for coronary artery disease 087988906 Z95.5 History of 4 stents Benign ess ential hypertension 3525550 I10 Blood pressure is 122/80. Very stable on lisinopril 40 mg daily on carvedilol 25 mg twice daily Hyperlipidemia 09029605 E78.5 Fasting lipid panel is due and continue atorvastat in 80 mg daily and Zetia 10 mg daily Hypothyroidism 52150373 E03.9 Screening thyroid function testing is due and refill provided for levothyrox ine 125 mcg daily Long-term drug therapy 213403426 Z79.891 cmp, cbc and b12, folate labs are due Screening for malignant neoplasm of prostate 262238797 Z12.5 Annual PSA is due Screening for malignant neoplasm of colon 558675438 Z12.11 Patient elects for Cologuard screening method for colon cancer screening Adult [facility] th examination 793059535 Z00.01 New patient wellness exam completed [id number] KATYA Clemens [facility] [place] [address] [place] [address] 11/20/2024 14:33:22 11/20/2024 15:51:15 Body mass index 30+ - obesity 886874032 Z68.32 BMI is 32.9 Obesity 609533934 E66.9 discussed healthy diet, exercise, controllin g carbohydra chano and added sugars in the diet Uncontroll ed type 2 diabetes mellitus 349160162 E11.65 a1c 9%. We will make sure patient is on 2000 mg daily total of metformin therapy and continue Farxiga 10 mg daily. NO OZEMPIC. We will start long acting insulin. Stop novolin R as well that he buys without script and doses on his own. Start Lantus Solostar baseline of 12 units daily at this time Coronary atherosclerosis 800118761 I25.10 patient had chest pain often. Clear cardiac cath yesterday. no dyspnea on exertion, PND or chest pain. He currently takes Plavix as well as carvedilol and ranolazine ER History of placement of stent for coronary artery disease 523897485 Z95.5 History of 4 stents Benign ess ential hypertension 7765271 I10 Blood pressure is currently stable on half of his lisinopril dosing in half of his carvedilol dosing Long-term drug therapy 910873820 Z79.891 Gallstone 174389168 K80. 20 Proceed with nuclear med HIDA scan to evaluate gallbladde r ejection fraction Nausea 203315511 R11.0 Stop Ozempic therapy at this time until further notice. Also sent for nuclear medicine gastric emptying study. If gastropare sis is present then he will not be any candidate for GLP or GI IP therapy Anxiety 80544275 F41.9 restart escitalopr am 10mg daily , he had stopped it but realizes he is better off on the medication . Health Concerns Section Related Observation LastModified by Organization Detai ls LastModified Time None Recorded Concern Status LastModified by Organization Details LastModified Time None Recorded Advance Directives Directive N: Payers Encounter Date Sequence Insurance Name Policy Number Policy Chavez Covered Member ID Chavez Member ID Guarantor Name 09/24/2024 1 [id number] Girish Perez [id number] Girish Rosenberg Chris 11/20/2024 1 [id number] Girish Perez [id number] Girish Perez Notes Date Note Type Note Provider Name and Address Organization Details Recorded Time 09/24/20 24 text/htm l Coronary Artery Disease F/UReported bypatient.Notes:will be transitioning to dr. love after dr. cash left the practice. hx of 4 stents total have been placed. Patient is also taking ranolazine ER 500 mg daily, Plavix 75 mg dailyDiabetesReported bypatient.Notes:8.2% on last A1c that he recalls. Patient is taking Farxiga 10 mg daily metformin ER 500 mg 4 dailyHyperlipidemiaReported bypatient.Notes:Patient is taking Zetia 10 mg daily and atorvastatin 80 mg daily for combinedHypertensionReported bypatient.Notes:For hypertension management the patient is on carvedilol 25 mg twice daily, lisinopril 40 mg daily.ThyroidReported bypatient.Notes:For hypothyroidism the patient is taking levothyroxine 125 mcg daily. Labs are due. KATYA Clemens Attn: Accounting,[address] [facility], [place], [address], [facility] 10/15/2024 21:27:27 11/20/19 25 text/htm l Coronary Artery Disease F/UReported bypatient.Notes:will be transitioning to dr. love after dr. cash left the practice. hx of 4 stents total have been placed. Patient is also taking ranolazine ER 500 mg daily, Plavix 75 mg dailyDiabetesReported bypatient.Notes:9% on last A1c that he recalls. Patient is taking Farxiga 10 mg daily metformin ER 500 mg 4 dailyHyperlipidemiaReported bypatient.Notes:Patient is taking Zetia 10 mg daily and atorvastatin 80 mg daily for combinedHypertensionReported bypatient.Notes:For hypertension management the patient is on carvedilol 25 mg twice daily, lisinopril 40 mg daily.ThyroidReported bypatient.Notes:For hypothyroidism the patient is taking levothyroxine 125 mcg daily. Patient continues to have anterior central chest pain in the medial chest. He has had extensive cardiac workup as well as a heart catheterization yesterday which was clear of any occlusive disease. He has also completed an EGD on an inpatient basis with GI and did not have any abnormalities. He does have known finding of gallstones but there was no inflammation or sludge present on testing. He has not undergone a HIDA scan and he has not undergone a nuclear medicine gastric emptying study. He had all of the symptoms start a couple of weeks after starting Ozempic therapy. KATYA Clemens Attn: Accounting,[address] [facility], [place], [address], [facility] 11/20/2024 18:37:28
== END 2024-12-09 07:44 | disposition home or self-care (01) ==
PROVIDERS: PCP Physician Assistant; Visit Provider Physician Assistant
DX: R11.0 Nausea (principal); K80.20 Calculus of gallbladder without cholecystitis without obstruction
CPT/HCPCS: 78227; A9537; J2805

== ENCOUNTER 2024-12-11 07:43 | Outpatient (CLI) | payer BC, SELFPAY ==
--- NOTE | ~2024-12-11 | NM_ITS ---
EXAM: NM gastric emptying study DATE: 12/11/2024 12:23 INDICATION: Nausea. Cholelithiasis. TECHNIQUE: A gastric emptying study was performed using the methodology of Mauro MEJÍA, et al. J Nucl Med 2007; 48:568-572. The patient was given a meal consisting of 2 scrambled eggs labeled with 1 mCi Tc-99m sulfur colloid, 2 slices of toast, two packages of jam, and approximately 120 mL of water. Si multaneous anterior and posterior 1-min images of the abdomen were obtained with the patient supine a t multiple time points over a total period of 4 hours. The geometric mean of anterior and posterior v iews was determined, and the percentage retention was calculated for each time point. COMPARISON: None. FINDINGS: Gastric retention of the radiotracer-labeled meal was 57%, 26%, and 3% at the 1-hour, 2-hour, and 4-h our time points, respectively. With this technique, apparent rapid gastric emptying is suggested by < 30% gastric retention at 1 hour. Delayed gastric emptying is defined by gastric retention of >90% at 1 hour, >60% retention at 2 hours, or >10% retention at 4 hours. IMPRESSION: 1. Normal gastric emptying. Reviewed, dictated and finalized at location A. GAGE LOAN FUNDER IMPRESSION: 1. Normal gastric emptying.
--- OUTSIDE RECORDS SUMMARY | 2024-12-11 07:47 | XMS_ITS | Clinical Summary ---
Author Organization [facility] Care Team Providers Care Wood Flour Miller Name Role Phone Unavailable Primary Care Provider Unavailabl e Social History Tobacco Use Types Packs/Day Years Used Date Smoking Tobacco: Never Assessed Sex and Gender Information Value Date Recorded Sex Assigned at Not on file Legal Sex Male 2:00 PM [employer]WORK TE[employer] Gender Identity Not on file Sexual Orientation [...]
--- OUTSIDE RECORDS SUMMARY | 2024-12-11 07:48 | XMS_ITS | Data Portability ---
Author Organization [facility] Address [address] [place] [address] Care Team Providers Care Pulverizer Tender Name Role Phone LINDSEY SEGURA Primary Care Provider Unavailab le Assessment No assessment recorded. Plan of Treatment Reminders Order Date Submit Date Provider Last Modified By Organization Details Last Modified Time Details Appointments ANY 15 2024 07:30A M KATYA Clemens Not available Not available Not available Lab CMP, serum or plasma 2023 024 IVON Jaimes, [address], [place], [address], 10/16/2024 09:07:36 CBC w/ auto diff 2023 024 IVON Jaimes, [address], [place], [address], 10/16/2024 09:07:40 cobalamin and folate panel, serum 2023 024 IVON Jaimes, [address], [place], [address], 10/16/2024 09:07:37 lipid panel, serum 2023 024 IVON Jaimes, [address], [place], [address], 10/16/2024 09:07:34 PSA, total, serum or plasma 2023 024 IVON Jaimes, [address], [place], [address], 10/16/2024 09:07:41 HbA1c (hemoglob in A1c), blood 2023 024 [facility]ON [facility], [address], [place], [address], 10/16/2024 09:07:39 microalbu min, urine 2023 024 [email or web address] [facility], [address], [place], [address], 11/19/2024 14:00:46 albumin/c reatinine , mass ratio, urine 2023 024 IVON [facility], [address], [place], [address], 10/16/2024 09:07:33 HbA1c (hemoglob in A1c), blood 2023 024 [email or web address] In-Office Order, Internal Use Only DO Not Attach Compendium DO Not Attach Compendium, Do Not Delete/merge, [id number] 09/24/2024 15:01:24 noninvasi ve colorecta l cancer DNA + occult blood screening , QL, stool 2023 [facility] (Cologuard Orders Only), [address], [address], [place], [address], 10/27/2024 10:45:37 TSH + free T4, serum 2023 [facility], [address], [place], [address], 10/16/2024 09:07:35 Referral diabetic ophthalmo logy referral 2023 IVON Arellano, [address], [place], [address], 10/27/2024 10:51:11 Procedures None recorded. Surgeries None recorded. Imaging NM, gastric emptying scan - PER SU @ [facility] NO PRECERT IS REQUIRED, REF # [id number] 2024 025 [facility] (Imaging), [facility] [facility] [address], [place], [address], 12/04/2024 16:45:25 NM, hepatobil iary scan, w/ CCK 2024 025 [facility] (Imaging), [address], [place], [address], 2024 16:41:54 Medication Orders Lantus Solostar U-100 Insulin 100 unit/mL (3 mL) subcutane ous pen 2024 025 [facility] [address]25, [address] [facility], [place], [address], 11/20/2024 15:08:37 escitalop alton 10 mg tablet 2024 025 [facility] [address]25, [address] [facility], [place], [address], 11/20/2024 15:08:36 metformin ER 500 mg tablet,ex tended release 24 hr [email or web address], [address] [facility], [place], [address], 09/24/2024 14:54:14 Ozempic 0.25 mg or 0.5 mg (2 mg/3 mL) subcutane ous pen injector 2023 024 [facility] [address]25, [address] [facility], [place], [address], 09/24/2024 14:54:25 levothyro xine 125 mcg tablet [email or web address] [place] [address] 2425, [address] [facility], [place], [address], 09/24/2024 14:54:14 Patient TargetsNo targets recorded. Patient Instructions Encounter Date Encounter Id Patient Instructions Last Modified By Organization Details Last Modified Time 09/24/2024 [id number] A healthy lifestyle: care instructions Not available 09/24/2024 14:54:14 11/20/2024 [id number] A healthy lifestyle: care instructions Not available [...] DO Not Attach Compendium, Do Not Delete/merge, [id number] 09/24/2024 15:01:13 10/15/20 24 10/16/2024 ALBUM IN/CR EATIN INE RATIO ,URIN E creatinine, urine 112.9 mg/dL notest ab. Not Available [facility] ([facility]) [address] [facility], [place], [address], 10/16/2024 09:07:33 10/15/20 24 10/16/2024 ALBUM IN/CR EATIN INE RATIO ,URIN E albumin, urine 3.4 ug/mL notest ab. Not Available [facility] ([facility]) [address] [facility], [place], [address], 10/16/2024 09:07:33 10/15/20 24 10/16/2024 ALBUM IN/CR EATIN INE RATIO ,URIN E alb/creat ratio 3 mg/g_ creat 0-29 Krystyna l: 0 - 29 Moder ately incre ased: 30 - 300 Sever charles incre ased: >300 Not Available [facility] ([facility]) [address] [facility], [place], [address], 10/16/2024 09:07:33 10/15/20 24 10/16/2024 LIPID PANEL W/ CHOL/ HDL RATIO cholesterol, total 105 mg/dL 100-19 9 Not Available [facility] ([facility]) [address] [place], [address], 10/16/2024 09:07:34 10/15/20 24 10/16/2024 LIPID PANEL W/ CHOL/ HDL RATIO triglyceride s 147 mg/dL 0-149 Not Available [facility] ([facility]) [address] [place], [address], 10/16/2024 09:07:34 10/15/20 24 10/16/2024 LIPID PANEL W/ CHOL/ HDL RATIO HDL cholesterol 32 mg/dL >39 below low normal Not Available [facility] ([facility]) [address] [place], [address], 10/16/2024 09:07:34 10/15/20 24 10/16/2024 LIPID PANEL W/ CHOL/ HDL RATIO VLDL cholesterol dakota 25 mg/dL 5-40 Not Available [facility] ([facility]) [address] [place], [address], 10/16/2024 09:07:34 10/15/20 24 10/16/2024 LIPID PANEL W/ CHOL/ HDL RATIO LDL chol calc ([facility]) 48 mg/dL 0-99 Not Available [facility] ([facility]) [address] [place], [address], 10/16/2024 09:07:34 10/15/20 24 10/16/2024 LIPID PANEL W/ CHOL/ HDL RATIO T. chol/HDL ratio 3.3 ratio 0.0-5. 0 T. Chol/ HDL Ratio Men Women 1/2 Avg.R isk 3.4 3.3 Avg.R isk 5.0 4.4 2X Avg.R isk 9.6 7.1 3X Avg.R isk 23.4 11.0 Not Available [facility] ([facility]) [address] [facility] [place], [address], 10/16/2024 09:07:34 10/15/20 24 10/16/2024 TSH+F REE T4 TSH 1.980 uIU/m L 0.450- 4.500 Not Available [facility] ([facility]) [address] [facility] [place], [address], 10/16/2024 09:07:35 10/15/20 24 10/16/2024 TSH+F REE T4 T4,free(dire ct) 1.83 NG/dL 0.82-1 .77 above high normal Not Available [facility] ([facility]) [address] [facility] [place], [address], 10/16/2024 09:07:35 10/15/20 24 10/16/2024 COMP. METAB OLIC PANEL (14) glucose 166 mg/dL 70-99 above high normal Not Available [facility] ([facility]) [address] [facility] [place], [address], 10/16/2024 09:07:36 10/15/20 24 10/16/2024 COMP. METAB OLIC PANEL (14) BUN 20 mg/dL 6-24 Not Available [facility] ([facility]) [address] [facility] [place], [address], 10/16/2024 09:07:36 10/15/20 24 10/16/2024 COMP. METAB OLIC PANEL (14) creatinine 1.05 mg/dL 0.76-1 .27 Not Available [facility] ([facility]) [address] [facility] [place], [address], 10/16/2024 09:07:36 10/15/20 24 10/16/2024 COMP. METAB OLIC PANEL (14) eGFR 84 mL/mi n/1.7 3 >59 Not Available [facility] ([facility]) [address], [place], [address], 10/16/2024 09:07:36 10/15/20 24 10/16/2024 COMP. METAB OLIC PANEL (14) BUN/creatini ne ratio 19 9-20 Not Available [facility] ([facility]) [address], [place], [address], 10/16/2024 09:07:36 10/15/20 24 10/16/2024 COMP. METAB OLIC PANEL (14) sodium 138 mmol/ L 134-14 4 Not Available [facility] ([facility]) [address] [place], [address], 10/16/2024 09:07:36 10/15/20 24 10/16/2024 COMP. METAB OLIC PANEL (14) potassium 4.8 mmol/ L 3.5-5. 2 Not Available [facility] ([facility]) [address] [facility], [place], [address], 10/16/2024 09:07:36 10/15/20 24 10/16/2024 COMP. METAB OLIC PANEL (14) chloride 97 mmol/ L 96-106 Not Available [facility] ([facility]) [address] [place], [address], 10/16/2024 09:07:36 10/15/20 24 10/16/2024 COMP. METAB OLIC PANEL (14) carbon dioxide, total 26 mmol/ L 20-29 Not Available [facility] ([facility]) [address] [facility], [place], [address], 10/16/2024 09:07:36 10/15/20 24 10/16/2024 COMP. METAB OLIC PANEL (14) calcium 10.9 mg/dL 8.7-10 .2 above high normal Not Available [facility] ([facility]) [address] [place], [address], 10/16/2024 09:07:36 10/15/20 24 10/16/2024 COMP. METAB OLIC PANEL (14) protein, total 6.8 g/dL 6.0-8. 5 Not Available [facility] ([facility]) [address] [facility] [place], [address], 10/16/2024 09:07:36 10/15/20 24 10/16/2024 COMP. METAB OLIC PANEL (14) albumin 4.5 g/dL 3.8-4. 9 Not Available [facility] ([facility]) [address] [facility], [place], [address], 10/16/2024 09:07:36 10/15/20 24 10/16/2024 COMP. METAB OLIC PANEL (14) globulin, total 2.3 g/dL 1.5-4. 5 Not Available [facility] ([facility]) [address] [facility], [place], [address], 10/16/2024 09:07:36 10/15/20 24 10/16/2024 COMP. METAB OLIC PANEL (14) bilirubin, total 1.7 mg/dL 0.0-1. 2 above high normal Not Available [facility] ([facility]) [address] [facility], [place], [address], 10/16/2024 09:07:36 10/15/20 24 10/16/2024 COMP. METAB OLIC PANEL (14) alkaline phosphatase 57 IU/L 44-121 Not Available [facility] ([facility]) [address] [facility], [place], [address], 10/16/2024 09:07:36 10/15/20 24 10/16/2024 COMP. METAB OLIC PANEL (14) AST (SGOT) 17 IU/L 0-40 Not Available [facility] ([facility]) [address] [facility] [place], [address], 10/16/2024 09:07:36 10/15/20 24 10/16/2024 COMP. METAB OLIC PANEL (14) ALT (SGPT) 24 IU/L 0-44 Not Available [facility] ([facility]) [address] [facility], [place], [address], 10/16/2024 09:07:36 10/15/20 24 10/16/2024 VITAM IN B12 AND FOLAT E vitamin B12 659 pg/mL 232-12 45 Not Available [facility] ([facility]) [address] [facility], [place], [address], 10/16/2024 09:07:37 10/15/20 24 10/16/2024 VITAM IN B12 AND FOLAT E folate (folic acid), serum 9.4 NG/mL >3.0 A serum folat e juliann ntrat ion of less than 3.1 ng/mL is consi dered to repre sent clini dakota defic iency . Not Available [facility] ([facility]) [address] [facility], [place], [address], 10/16/2024 09:07:37 10/15/20 24 10/16/2024 HEMOG LOBIN A1C hemoglobin A1C 9.0 % 4.8-5. 6 above high normal Predi abete s: 5.7 - 6.4 Diabe chano: >6.4 Glyce miguel contr ol for adult s with diabe chano: <7.0 Not Available [facility] ([facility]) [address] [place], [address], 10/16/2024 09:07:39 10/15/20 24 10/16/2024 CBC WITH DIFFE RENTI AL/PL ATELE T WBC 7.4 x10e3 /uL 3.4-10 .8 Not Available [facility] ([facility]) [address] [facility], [place], [address], 10/16/2024 09:07:40 10/15/20 24 10/16/2024 CBC WITH DIFFE RENTI AL/PL ATELE T RBC 5.54 x10e6 /uL 4.14-5 .80 Not Available [facility] ([facility]) [address] [facility], [place], [address], 10/16/2024 09:07:40 10/15/20 24 10/16/2024 CBC WITH DIFFE RENTI AL/PL ATELE T hemoglobin 16.9 g/dL 13.0-1 7.7 Not Available [facility] ([facility]) [address] [facility], [place], [address], 10/16/2024 09:07:40 10/15/2010/16/2024 CBC WITH DIFFE RENTI AL/PL ATELE T hematocrit 50.3 % 37.5-5 1.0 Not Available [facility] ([facility]) [address] [facility], [place], [address], 10/16/2024 09:07:40 10/15/20 24 10/16/2024 CBC WITH DIFFE RENTI AL/PL ATELE T MCV 91 fL 79-97 Not Available [facility] ([facility]) [address] [place], [address], 10/16/2024 09:07:40 10/15/20 24 10/16/2024 CBC WITH DIFFE RENTI AL/PL ATELE T MCH 30.5 pg 26.6-3 3.0 Not Available [facility] ([facility]) [address] [place], [address], 10/16/2024 09:07:40 10/15/20 24 10/16/2024 CBC WITH DIFFE RENTI AL/PL ATELE T MCHC 33.6 g/dL 31.5-3 5.7 Not Available [facility] ([facility]) [address] [place], [address], 10/16/2024 09:07:40 10/15/20 24 10/16/2024 CBC WITH DIFFE RENTI AL/PL ATELE T RDW 12.2 % 11.6-1 5.4 Not Available [facility] ([facility]) [address] [facility], [place], [address], 10/16/2024 09:07:40 10/15/20 24 10/16/2024 CBC WITH DIFFE RENTI AL/PL ATELE T platelets 229 x10e3 /uL 150-45 0 Not Available [facility] ([facility]) [address] [facility], [place], [address], 10/16/2024 09:07:40 10/15/20 24 10/16/2024 CBC WITH DIFFE RENTI AL/PL ATELE T neutrophils 56 % notest ab. Not Available [facility] ([facility]) [address] [facility], [place], [address], 10/16/2024 09:07:40 10/15/20 24 10/16/2024 CBC WITH DIFFE RENTI AL/PL ATELE T lymphs 32 % notest ab. Not Available [facility] ([facility]) [address] [facility], [place], [address], 10/16/2024 09:07:40 10/15/20 24 10/16/2024 CBC WITH DIFFE RENTI AL/PL ATELE T monocytes 8 % notest ab. Not Available [facility] ([facility]) [address] [facility], [place], [address], 10/16/2024 09:07:40 10/15/20 24 10/16/2024 CBC WITH DIFFE RENTI AL/PL ATELE T eos 3 % notest ab. Not Available [facility] ([facility]) [address] [place], [address], 10/16/2024 09:07:40 10/15/20 24 10/16/2024 CBC WITH DIFFE RENTI AL/PL ATELE T basos 1 % notest ab. Not Available [facility] ([facility]) [address] [facility], [place], [address], 10/16/2024 09:07:40 10/15/20 24 10/16/2024 CBC WITH DIFFE RENTI AL/PL ATELE T neutrophils (absolute) 4.1 x10e3 /uL 1.4-7. 0 Not Available [facility] ([facility]) [address] [facility], [place], [address], 10/16/2024 09:07:40 10/15/20 24 10/16/2024 CBC WITH DIFFE RENTI AL/PL ATELE T lymphs (absolute) 2.4 x10e3 /uL 0.7-3. 1 Not Available [facility] ([facility]) [address] [place], [address], 10/16/2024 09:07:40 10/15/20 24 10/16/2024 CBC WITH DIFFE RENTI AL/PL ATELE T monocytes(ab solute) 0.6 x10e3 /uL 0.1-0. 9 Not Available [facility] ([facility]) [address] [place], [address], 10/16/2024 09:07:40 10/15/20 24 10/16/2024 CBC WITH DIFFE RENTI AL/PL ATELE T eos (absolute) 0.2 x10e3 /uL 0.0-0. 4 Not Available [facility] ([facility]) [address] [place], [address], 10/16/2024 09:07:40 10/15/20 24 10/16/2024 CBC WITH DIFFE RENTI AL/PL ATELE T baso (absolute) 0.0 x10e3 /uL 0.0-0. 2 Not Available [facility] ([facility]) [address] [place], [address], 10/16/2024 09:07:40 10/15/20 24 10/16/2024 CBC WITH DIFFE RENTI AL/PL ATELE T immature granulocytes 0 % notest ab. Not Available [facility] ([facility]) [address] [facility], [place], [address], 10/16/2024 09:07:40 10/15/20 24 10/16/2024 CBC WITH DIFFE RENTI AL/PL ATELE T immature grans (abs) 0.0 x10e3 /uL 0.0-0. 1 Not Available [facility] ([facility]) [address] [facility], [place], [address], 10/16/2024 09:07:40 10/15/20 24 10/16/2024 PROST ATE-S [...] t be inter prete d as absol [place] evide nce of the prese nce or absen ce of binta jacques se. Not Available [facility] ([facility]) [address] [facility], [place], [address], 10/16/2024 09:07:41 10/23/19 25 10/23/2024 COLOG UARD cologuard result reportable NEGATI VE negati ve normal NEGAT ERNESTO TEST RESUL T. A negat ernesto Colog uard resul t indic ates a low likel ihood that a color ectal cance r (CRC) or advan tabitha adeno ma (emma omato us polyp s with more advan tabitha pre-m align ant featu res) is prese nt. [facility] [place] e that a perso n with a [...] of 10,00 0 [facility] [place] [facility] risk for color ectal cance r [...] asymp tomat ic indiv idual s at [place] risk for color ectal cance r. [...] ommen datio ns.ht ml.; Javier BAY, Ann jones CR, Janie IQBAL, Color ectal Cance r Scree tom: Recom menda tions for Physi cians and Patie nts from the U.S. Multi -Soci ety Task Force on Color ectal Cance r Scree tom , Pipo Horton oente rolog y 2017; 112:1 016-1 030. TEST DESCR IPTIO N: [place] site algor ithmi c joel sis of stool DNA-b iomar kers with hemog lobin immun oassa y. [...] years or older , who are at the medical center for color ectal cance r (CRC) . Colog uard has been appro hanna for use by the U.[place]. FDA. The perfo rmanc e of Colog uard was estab lishe d in a cross secti onal study of the medical center adult s aged 50-84 . Colog uard perfo rmanc e in patie nts ages 45 to 49 years was estim ated by sub-g roup joel sis of near- age group s. Colon oscop ies perfo rmed for a posit ernesto resul t may find as the most clini juanjo signi elena t debra n: color ectal cance r [4.0% ], [...] of 10,00 0 indiv idual s at [facility] risk for color ectal cance r [...] wing locat ion: www.e xactl abs.c om/re sulyaya . Addit ional descr iptio n of the Colog uard test proce ss, warni ngs and preca ution s can be found at www.c ologu tonya.c om. Not Available [facility] (Cologuard Orders Only) [address], [place], [address], 10/27/2024 10:45:37 10/07/20 24 10/07/2024 CT, angio gram, chest , w/ contr ast No observ ation record ed. [address] [address], [place], [address], 10/07/2024 12:37:31 10/28/19 25 10/28/2024 imagi ng inter preta tion No observ ation record ed. [address] [address], [place], [address], 10/29/2024 08:58:09 11/02/19 25 11/02/2024 XR, chest , 2 view No observ ation record ed. [address] [address], [place], [address], 11/02/2024 13:35:06 11/03/19 25 11/03/2024 MR, elizabeth ngiop ancre atogr am, w/ contr ast No observ ation record ed. [address] [address], [place], [address], 11/20/2024 14:45:07 11/23/19 25 11/02/2024 exerc ise stres s test No observ ation record ed. [email or web address] Not Available 11/23 16:43:13 11/23/19 25 11/02/2024 US, echoc ardio gram No observ ation record ed. BAR[facility] Not Available 2024 15:30:06 12/09/19 25 2024 NM, hepat obili paola scan, w/ CCK No observ ation record ed. [facility] [address], [place], [address], 12/10/2024 11:43:18 Result Notes None recorded. Problems Name Problem SNOMED Code Status Onset Date Resolution Date Notes Provider Name and Address Organization Details Recorded Time Body mass index 30+ - obesity 964389054 Active 2023 Jeffrey Spann MA null, [place] - [facility] 4 14:17:32 History of placement of stent for coronary artery disease 216357874 Active 2023 KATYA Clemens Attn: Truman jacobson,[address] [place], [address], [place] - [facility] 4 21:24:02 Coronary atherosclerosi s 200346471 Active 2023 KATAY Clemens Attn: Truman jacobson,[address] [place], [address], [place] [facility] 4 21:24:02 Uncontrolled type 2 diabetes mellitus 975571655 Active 2023 KATYA Clemens Attn: Truman jacobson,[address] [place], [address], [place] [facility] 4 21:24:04 Benign essential hypertension 6030198 Active 2023 KATYA Clemens Attn: Truman jacobson,[address] [place], [address], [place] [facility] 4 21:24:07 Hyperlipidemia 64157379 Active 2023 KATYA Clemens Attn: Truman jacobson,[address] [facility], [place], [address], [place] [facility] 4 21:24:21 Hypothyroidism 96317366 Active 2023 KATYA Clemens Attn: Elidiamanpreet jacobson,[address] [facility], [place], [address], [place] [facility] 4 21:25:07 Obesity 620694157 Active 2023 KATYA Clemens Attn: Truman indira,[address] [facility], [place], [address], [place] [facility] 4 21:25:11 [place] 296930211 Active 2024 KATYA Clemens Attn: Truman indira,[address] [facility], [place], [address], [place] [facility] 5 18:36:21 Nausea 682000606 Active 2024 KATYA Clemens Attn: Truman jacobson,[address] [facility], [place], [address], [place] [facility] 5 18:36:22 Long-term drug therapy Active 2024 KATYA Clemens Attn: Truman indira,[address] [facility], [place], [address], [place] [facility] 5 18:37:11 Problem Notes None recorded. Procedures Surgical History Date Name Laterality Status Provider Name and Address Organization Details Recorded Time Angioplasty With Stent completed Jeffrey Spann MA [facility] 09/24/2024 14:35:07 Hernia Repair completed Jeffrey Spann MA [place] - [facility] 09/24/2024 14:35:11 Imaging Results Imaging Date Name Status LastModified by Organization Details LastModified Time 10/07/2024 CT, angiogram, chest, w/ contrast completed [address], [place], [address], 10/07/2024 12:37:31 10/28/2024 imaging interpretation completed [address], [place], [address], 10/29/2024 08:58:09 11/02/2024 XR, chest, 2 view completed [address], [place], [address], 11/02/2024 13:35:06 11/03/2024 MR, cholangiopancreato gram, w/ contrast completed [address], [place], [address], 11/20/2024 14:45:07 11/02/2024 exercise stress test completed [email or web address] Information not available 11/23/2024 16:43:13 11/02/2024 US, echocardiogram completed [facility] Inform ation not available 11/23/2024 15:30:06 2024 NM, hepatobiliary scan, w/ CCK completed [address], [place], [address], 12/10/2024 11:43:18 Procedure Notes None recorded. Medical Equipment None [...] Address Organization Details Last Updated DateTime 4 075049. 16 g 36.2 kg/m2 182.88 cm 98 % 98 % 76 /min 128 mm[Hg] 82 mm[Hg] Jeffrey Spann MA [facility] 14:19:01 Date Recorded Respiratory rate Systolic blood pressure Diastolic blood pressure Provider Name and Address Organization Details Last Updated DateTime 09/24/2024 18 /min 122 mm[Hg] 80 mm[Hg] KATYA Clemens Attn: Accounting, [address] [place], [address], [facility] 09/24/2024 14:51:25 Date Recorded Body height Body mass index (BMI) Body weight Heart rate Oxygen saturation Oxygen saturation in Arterial blood by Pulse oximetry Systolic blood pressure Diastolic blood pressure Provider Name and Address Organization Details Last Updated DateTime 5 182.88 cm 32.9 kg/m2 798821. 43 g 81 /min 98 % 98 % 138 mm[Hg] 74 mm[Hg] Joanie Foster MA [place] - [facility] 14:39:35 Social History Question Answer Notes LastModified by Organizat ion Details LastModified Time Tobacco Smoking Status Former Smoker Ciprianotayla CHIN Spann null, [place] - [facility] 09/24/2024 14:35:35 Do You Have An Advance [...] Response Coronary Artery Disease Y Other N High Blood Pressure Y Atrial Fibrillation N Kidney or Bladder Problems N Thyroid Problems Y GI Problems N Depression N COPD N Blood Clots N Have you had a mammogram in the last yea r? N Skin Problems N Anemia N Heart Attack (PR) Y Anxiety Disorder Y Diabetes Y Muscle, [...] SNOMED-CT Code Diagnosis ICD10 Code Diagnosis Note [id number] KATYA Clemens [facility] [place] [address] [place] [address] 09/24/2024 13:43:56 09/24/2024 15:13:51 Body mass index 30+ - obesity 220582075 Z68.36 BMI is 36.2 Obesity 943650789 E66.9 discussed healthy diet, exercise, controllin g carbohydra chano and added sugars in the diet Uncontroll ed type 2 diabetes mellitus 317856334 E11.65 A1c is 8.6% in the office [...] urine testing and lab A1c. Coronary atherosclerosis 875509167 I25.10 Patient is asymptomat ic at this time with no dyspnea on exertionPN D or chest pain. He currently takes Plavix as well as carvedilol and ranolazine ER History of placement of stent for coronary artery disease 961236843 Z95.5 History of 4 stents Benign ess ential hypertension 4358972 I10 Blood pressure is 122/80. Very stable on lisinopril 40 mg daily on carvedilol 25 mg twice daily Hyperlipidemia 89751519 E78.5 Fasting lipid panel is due and continue atorvastat in 80 mg daily and Zetia 10 mg daily Hypothyroidism 39949152 E03.9 Screening thyroid function testing is due and refill provided for levothyrox ine 125 mcg daily Long-term drug therapy 136904050 Z79.891 cmp, cbc and b12, folate labs are due Screening for malignant neoplasm of prostate 444709834 Z12.5 Annual PSA is due Screening for malignant neoplasm of colon 231667850 Z12.11 Patient elects for Cologuard screening method for colon cancer screening [facility] hospital th examination [id number] Z00.01 New patient wellness exam completed [id number] KATYA Clemens [facility] [place] [address] [place] [address] 11/20/2024 14:33:22 11/20/2024 15:51:15 Body mass index 30+ - obesity 558096906 Z68.32 BMI is 32.9 Obesity [id number] E66.9 discussed healthy diet, exercise, controllin g carbohydra chano and added sugars in the diet Uncontroll ed type 2 diabetes mellitus [id number] E11.65 a1c 9%. We will make sure patient is on 2000 mg daily total of metformin therapy and continue Farxiga 10 mg daily. NO OZEMPIC. We will start long acting insulin. Stop novolin R as well that he buys without script and doses on his own. Start Lantus Solostar baseline of 12 units daily at this time Coronary atherosclerosis [id number] I25.10 patient had chest pain often. Clear cardiac cath yesterday. no dyspnea on exertion, PND or chest pain. He currently takes Plavix as well as carvedilol and ranolazine ER History of placement of stent for coronary artery disease [id number] Z95.5 History of 4 stents Benign ess ential hypertension [id number] I10 Blood pressure is currently stable on half of his lisinopril dosing in half of his carvedilol dosing Long-term drug therapy [id number] Z79.891 Gallstone [id number] K80. 20 Proceed with nuclear med HIDA scan to evaluate gallbladde r ejection fraction Nausea [id number] R11.0 Stop Ozempic therapy at this time until further notice. Also sent for nuclear medicine gastric emptying study. If gastropare sis is present then he will not be any candidate for GLP or GI IP therapy Anxiety [id number] F41.9 restart escitalopr am 10mg daily , [...] Chavez Member ID Guarantor Name 09/24/2024 1 [facility] [id number] Girish Perez [id number] Girish Perez 11/20/2024 1 [place] [id number] Girish Perez [id number] Girish Perez Notes Date Note Type [...] are due. KATYA Clemens Attn: Accounting,[address], [place], [address], [facility] 10/15/2024 21:27:27 11/20/19 25 text/htm l Coronary [...] Ozempic therapy. KATYA Clemens Attn: Accounting,[address], [place], [address], [facility] 11/20/2024 18:37:28
--- OUTSIDE RECORDS SUMMARY | 2024-12-11 07:50 | XMS_ITS | Clinical Summary ---
Author Organization [facility] [address] Address [address] [place] [address] Care Team Providers Care Sales Inspector Name Role Phone Lindsey Segura Primary Care Pr ovider Allergies No known active allergies Medications metFORMIN (GLUCOPHAGE) 1,000 mg tablet take 1 tablet by oral route 2 times every day with morning and evening meals 0 0 11/01/19 15 Active escitalopram (LEXAPRO) 20 mg tablet take 1 tablet by oral route every day 0 0 08/30/20 15 Active dapagliflozin (FARXIGA) 10 mg tablet take 1 tablet by oral route every day in the morning 0 0 01/12/20 17 Active levothyroxine sodium (TIROSINT) 125 mcg capsule take 1 capsule by oral route every day 0 0 01/12/20 17 Active aspirin 81 mg enteric coated tablet Take 1 tablet (81 mg total) by mouth daily Active INSULIN ADMIN SUPPLIES SUBQ Inject under the skin Active atorvastatin (LIPITOR) 80 mg tabletIndicatio ns:Coronary artery disease involving houlton coronary artery of houlton heart without angina pectoris Take 1 tablet by mouth nightly 90 tablet 3 02/24/20 24 Active ranolazine ER (RANEXA) 500 mg 12 hr tablet Take 1 tablet (500 mg total) by mouth 2 (two) times a day 180 tablet 1 08/07/20 24 Active ezetimibe (ZETIA) 10 mg tabletIndicatio ns:Coronary artery disease involving houlton coronary artery of houlton heart without angina pectoris Take 1 tablet (10 mg total) by mouth daily 90 tablet 08/13/20 24 025 Active clopidogreL (PLAVIX) 75 mg tablet Take 1 tablet by mouth once daily 90 tablet 09/28/20 24 Active nitroglycerin (NITROSTAT) 0.[address] 1 tablet (0.4 mg total) under the tongue every 5 (five) minutes as needed for chest pain 25 tablet 3 10/29/19 25 Active carvediloL (COREG) 6.25 mg tabletIndicatio ns:Hypertension associated with diabetes (HCC) Take 1 tablet (6.25 mg total) by mouth 2 (two) times a day with meals 180 tablet 3 12/08/19 25 026 Active lisinopriL (PRINIVIL,ZESTR IL) 20 mg tabletIndicatio ns:Hypertension associated with diabetes (HCC) Take 1 tablet (20 mg total) by mouth daily 90 tablet 3 12/08/19 25 026 Active lisinopriL (PRINIVIL,ZESTR IL) 40 mg tablet TAKE 2 TABLETS BY MOUTH DAILY (40 MG TOTAL) 90 tablet 2 02/04/20 24 025 Discontinued carvediloL (COREG) 25 mg tabletIndicatio ns:Coronary artery disease involving houlton coronary artery of houlton heart without angina pectoris TAKE 1 TABLET BY MOUTH TWICE DAILY WITH MEALS 180 tablet 2 03/19/20 24 025 Discontinued(Ot her) isosorbide mononitrate ER (IMDUR) 30 mg 24 hr tabletIndicatio ns:Chest pain, unspecified type Take 1 tablet (30 mg total) by mouth daily 30 tablet 3 11/10/19 25 025 Discontinued(Ot her) Active Problems Problem Noted Date Diagnosed Date Morbid (severe) obesity due to excess calories 1 PVC's (premature ventricular contractions) 01/25 DASILVA (dyspnea on exertion) 11/04/2019 S/P coronary artery stent placement 10/24/2018 Mixed diabetic hyperlipidemi a associated with type 2 diabetes mellitus 03/13/2018 Palpitations 01/11/2017 Overview (03/15/2017): Palpitations 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 01/11/2017 Overview (03/15/2017): Coronary artery disease involving houlton coronary artery of houlton heart with other form of angina pectoris Hypertension associated with diabetes 01/11/2017 Overview (03/15/2017): HTN (hypertension), benign Type 2 diabetes mellitus 01/11/2017 Overview (03/15/2017): DM type 2 with diabetic dyslipidemia Resolved Problems Problem Noted Date Diagnosed Date Resolved Date History of placement of sten t for coronary artery disease 08/30/2015 07/30/2023 Overview (01/24/2017): S/P coronary artery stent placement Encounters Date Type Department Care Team Description 12/08/2024 8:00 AM CHOPPING MACHINE OPERATOR Office Visit [facility] Cardiology [address] [place] [address] [address] [place] [phone] Anisa Patrick NP 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 (HCC); Status post coronary angiogram; Hypertension associated with diabetes (HCC) 11/18/2024 8:30 AM CHOPPING MACHINE OPERATOR - 11/18/2024 10:00 AM CHOPPING MACHINE OPERATOR Surgery [facility] Cardiac Catheterization Lab [address] [place] [address] Wendy Adam MD LEFT HEART CATHETERIZATION WITH CORONARY ANGIOGRAPHY AND WITH OR WITHOUT LEFT VENTRICULOGRAM [id number] 11/18/2024 6:24 AM CHOPPING MACHINE OPERATOR - 11/18/2024 12:33 PM CHOPPING MACHINE OPERATOR Hospital Encounter [facility] Cardiac Catheterization Lab [address] [place] [address] Wendy Adam MD 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 (HCC) Discharge Disposition: Discharge to home or self care 11/10/2024 2:30 PM CHOPPING MACHINE OPERATOR Office Visit [facility] Cardiology [address] [place] [address] [address] [place] [phone] Anisa Patrick NP Chest pain, unspecified type; Coronary artery disease involving houlton coronary artery of houlton heart with angina pectoris (HCC); Lipid screening; Hospital discharge follow-up 11/10/2024 Orders Only [facility] Cardiology [address] [place] [address] Wendy Adam MD 11/10/2024 Telephone [facility] Cardiology [address] [facility] [address] [place] [phone] Anisa Patrick NP 11/06/2024 Telephone [facility] Cardiology [address] [place] [address] [address] [place] [phone] Jose Luis Asbhy MD 11/03/2024 Orders Only [facility] Health Information Management [address] [place] [address] Wendy Adam MD 10/29/2024 Telephone [facility] Cardiology [address] [place] [address] [address] [place] [phone] Jose Luis Ashby MD 10/28/2024 Telephone [facility] Cardiology [address] [place] [address] [address] [place] [phone] Jose Luis Ashby MD from Last 3 Months Surgical History Surgery Date Site/Laterality Comments ANGIOPLASTY HERNIA REPAIR Medical History Medical History Date Comments Type 2 diabetes mellitus (HCC) D iabetes type 2 Hypertension Hypertension Chronic coronary artery disease Coronary artery disease Anxiety Hypothyroidism Family History Medical History Relation Name Comments No Known Problems Father No Known Problems Mother Relation Name Status Comments Father Mother Social History Tobacco Use Types Packs/Day Years Used Date Smoking Tobacco: Former Smokeless Tobacco: Never Alcohol Use Standard Drinks/Week Comments No 0 (1 standard drink = 0.6 oz pur e alcohol) Personal Safety Answer Date Recorded Have you ever been in or are you currently in a harmful physical or emotional relationship or is someone making you feel afraid or unsafe? Denies 11/18/2024 Sex and Gender Information Value Date Recorded Sex Assigned at Not on file Legal Sex Male 3:27 AM CHOPPING MACHINE OPERATOR Gender Identity Not on file Sexual Orientation Not on file Obstetrics History Last Filed Vital Signs Vital Sign Reading Time Taken Comments Blood Pressure 114/80 12/08/2024 7:45 AM CHOPPING MACHINE OPERATOR Pulse 88 12/08/2024 7:45 AM CHOPPING MACHINE OPERATOR Temperature 37 C (98.6 F) 11/18/2024 7:15 AM CHOPPING MACHINE OPERATOR Respiratory Rate 18 11/18/2024 7:15 AM CHOPPING MACHINE OPERATOR Oxygen Saturation 98% 12/08/2024 7:45 AM CHOPPING MACHINE OPERATOR Inhaled Oxygen Concentration - - Weight 105.2 kg (232 lb) 12/08/2024 7:45 AM CHOPPING MACHINE OPERATOR Height 182.9 cm (6') 12/08/2024 7:45 AM CHOPPING MACHINE OPERATOR Body Mass Index 31.46 12/08/2024 7:45 AM CHOPPING MACHINE OPERATOR Plan of Treatment Health Maintenance Due Date Last Done Comments Albumin Creatinine Ratio, Urine 1968 Colon Cancer Screening-Colonoscopy 1968 Depression Screening 1968 Hemoglobin A1C 1968 Hepatitis C Screening 1968 Prostate Cancer Screening-PSA 1968 Dilated Eye Exam 1968 Foot Exam 1968 DTaP/Tdap/Td Vaccine (1 - Tdap) 1979 Hepatitis B Screening 1986 Regular Well Visit/Exam 18-64 1986 Pneumococcal vaccine <65 (1 of 2 - PCV) 1987 Zoster Vaccine (1 of 2) 2018 Covid-19 Vaccine (3 - 2023-2 5 season) 2024 02/18/2021, 01/15/2021 Influenza Vaccine (#1) 2024 Lipid Panel 11/10/2025 11/10/2024, 03/23, 01/25/2023, Additional history exists eGFR 11/18/2025 11/18/2024 Medical Devices Implanted Type Area Sales Representative Facility Services Device Identifier Shelf Expiration Date Model / Serial / Lot [employer] Angio-Seal Vip 6fr Closere Device [id number] - [id number] Implanted:Qty: 1 on 11/18/2024 by Wendy Adam MD at [facility] L[employer] [id number] / / Procedures Procedure Name Priority Date/Time Associated Diagnosis Comments POCT GLUCOSE DEVICE Routine 11/18/2024 9 :22 AM CHOPPING MACHINE OPERATOR LEFT HEART CATHETERIZATION WITH CORONARY ANGIOGRAPHY AND WITH AND WITHOUT LEFT VENTRICULOGRAM Routine 11/18/2024 9:00 AM CHOPPING MACHINE OPERATOR 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 (HCC) MODERATE SEDATION FIRST 15MIN 5+ YEAR [id number] 11/18/2024 8:13 AM CHOPPING MACHINE OPERATOR 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 (HCC) MODERATE SEDATION SAME MD MONTOYA ADDL 15 MIN [id number] 11/18/2024 8:13 AM CHOPPING MACHINE OPERATOR 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 (HCC) EGFR STAT 11/18/2024 7:50 AM CHOPPING MACHINE OPERATOR DIFFERENTIAL AUTO STAT 11/18/2024 7:5 0 AM CHOPPING MACHINE OPERATOR BASIC METABOLIC PANEL STAT 11/18/2024 7:50 AM CHOPPING MACHINE OPERATOR CBC WITH AUTO DIFFERENTIAL STAT 11/18/2024 7:50 AM CHOPPING MACHINE OPERATOR POCT GLUCOSE DEVICE Routine 11/18/2024 7 :07 AM CHOPPING MACHINE OPERATOR POCT LIPID PANEL Routine 11/10/2024 2:22 PM CHOPPING MACHINE OPERATOR Lipid screening CARDIOLOGY DOCUMENT SCAN Routine 11/03/2024 4:45 PM CHOPPING MACHINE OPERATOR CARDIOLOGY DOCUMENT SCAN 11/03/2024 SCAN - RADIOLOGY/IMAGING 11/03/2024 CARDIOLOGY DOCUMENT SCAN Routine 11/02/2024 4:43 PM CHOPPING MACHINE OPERATOR from Last 3 Months Results * POCT glucose (11/18/2024 9:22 AM CHOPPING MACHINE OPERATOR) Glucose, POC 175 70 - 199 mg/dL Blood 11/18/2024 9:22 AM CHOPPING MACHINE OPERATOR 11/18/2024 9:22 AM CHOPPING MACHINE OPERATOR us Wendy Adam MD LAB POCT ORDERABLES - DEVICE Final Result [facility] [address] Department [place] [address] * LEFT HEART CATHETERIZATION WITH CORONARY ANGIOGRAPHY AND WITH AND WITHOUT LEFT VENTRICULOGRAM (11/18/2024 9:00 AM CHOPPING MACHINE OPERATOR) Anatomical Region Laterality Modality X-Ray Angiograph y Narrative 11/18/2024 9:14 AM CHOPPING MACHINE OPERATOR CARDIAC CATHETERIZATION REPORT Girish Perez IP ENCOUNTER: @CSN@ Date of Procedure: 11/18/2024 BIRTHDATE: 1970 BUFFING MACHINE OPERATOR SEMIAUTOMATIC: Wendy Adam MD PREPROCEDURE DIAGNOSES: Girish Perez is a 53 y.o. male here for cardiac catheterization. Past medical history of coronary artery disease with stents to proximal, distal left circumflex artery and RCA that were patent on a cardiac catheterization done in 2021. Also history of hypertension, diabetes, PVCs. He was recently admitted to [facility] earlier this month for right upper quadrant pain. Also epigastric pain. Ultrasound shows gallstones and hepatic fatty infiltration. At that time he underwent Lexiscan stress test that was negative for ischemia. Also echocardiogram showed normal LV systolic function without significant valvular abnormalities. He was cleared by GI . Patient was discharged home He continues to have episodes of epigastric and chest pains. We brought him into define coronary anatomy. PROCEDURES PERFORMED: Moderate sedation that started at 8:32 a.m. and ended at 9:00 a.m. with total duration 28 minutes using 3mg of Versed and 75mcg of fentanyl. The registered nurse was mariama garcia Selective left and right coronary angiogram. Left heart catheterization with measurement of LVEDP and measure gradient across aortic valve. Right common femoral arterial angiogram. Deployment [address] [employer] Angio-Seal. FINDINGS: Left main without significant disease. Left anterior descending artery is large artery that runs to the apex and has minimal irregularities. Gives rise to a medium-sized diagonal branch with minimal irregularities.. Left circumflex artery is large and codominant and has a patent stent proximally and distally. And right coronary artery is large with patent stent in the mid segment. LVEDP was 11 mm Hg and no gradient across aortic valve. LV angiogram shows normal LV systolic function with no wall motion abnormalities. Ascending aorta seems to be within normal caliber. Right common femoral arterial angiogram shows no significant disease in the right common femoral artery. COMPLICATIONS: None ESTIMATED BLOOD LOSS: 5 mL PROCEDURAL DESCRIPTION: After informed consent patient was brought into the casting house laborer where she was draped and prepped in the usual manner. Moderate sedation was given and the right groin infiltrated using 1% lidocaine. Five [place] sheath was obtained using micropuncture needle and modified Seldinger technique. Selective left coronary angiogram was done using JL4 catheter with the tip of the catheter placed in the left main coronary artery. Selective right coronary angiogram was done using JR4 catheter with the tip of the catheter placed in the right coronary artery. After that 5 [place] pigtail catheter was advanced across aortic valve into the left ventricular with measurement of LVEDP and measure gradient across aortic valve. LV angiogram was done as well. Right common femoral arterial angiogram was done and deployed 6 [place] Angio-Seal. Access site: Right common femoral artery. Hemostasis: 6 [place] Angio-Seal. CONCLUSIONS Patent stents proximal, distal left circumflex artery and patent stent mid RCA. PLAN Continue risk factor modification for CAD Wendy Adam MD CV CARDIAC CATH PROC EDURES Final Result * eGFR (11/18/2024 7:50 AM CHOPPING MACHINE OPERATOR) [facility] eGFR >90 >=60 mL/min/1. 73 m2 Comment: Interpretive Data Reference Interval Normal >/= 90 mL/min/1.73m2 Mildly decreased* 60 - 89 mL/min/1.73m2 Mildly to moderately decreased 45 - 59 mL/min/1.73m2 Moderately to severely decreased 30 - 44 mL/min/1.73m2 Severely decreased 15 - 29 mL/min/1.73m2 Kidney Failure < 15 mL/min/1.73m2 *Relative to young adult level Estimated glomerular filtration rate is determined by the 2020 CKD-EPI equation recommended by the National Kidney Foundation (A Unifying Approach to GFR Estimation: Recommendations of the NKF-ASK Task Force on Reassessing the Inclusion of Race in Diagnosing Kidney Disease, JASN 2020). The CKD-EPI equation should not be used for patients with unstable renal function and has not been validated in children and those over 70. Current interpretive data was last reviewed 2021. Blood 11/18/2024 7:50 AM CHOPPING MACHINE OPERATOR 11/18/2024 7:56 AM CHOPPING MACHINE OPERATOR Wendy Adam MD LAB BLOOD ORDERABLES Final Result [facility] [address] Department [place] [address] * Differential, auto (11/18/2024 7:50 AM CHOPPING MACHINE OPERATOR) Neutrophil abs 3.0 1.5 - 6.5 K/cumm Imm gran abs 0.0 0.0 - 0.1 K/cumm [facility] Lymphocyte abs 1.5 0.8 - 3.3 K/cumm [facility] Monocyte abs 0.6 0.2 - 0.8 K/cumm [facility] Eosinophil abs 0.1 0.0 - 0.5 K/cumm [facility] Basophil abs 0.0 0.0 - 0.1 K/cumm [facility] Neutrophil pct 57.5 % [facility] Comment: Interpretive Data Percent cell count reference ranges are not reported, since discordance with absolute values may lead to misinterpretation of CBC data. Current Interpretive Data was last revised on 2018. Imm gran pct 0.6 % [facility] Comment: Interpretive Data Percent cell count reference ranges are not reported, since discordance with absolute values may lead to misinterpretation of CBC data. Current Interpretive Data was last revised on 2018. Lymphocyte pct 28.1 % [facility] Comment: Interpretive Data Percent cell count reference ranges are not reported, since discordance with absolute values may lead to misinterpretation of CBC data. Current Interpretive Data was last revised on 2018. Monocyte pct 11.5 % [facility] Comment: Interpretive Data Percent cell count reference ranges are not reported, since discordance with absolute values may lead to misinterpretation of CBC data. Current Interpretive Data was last revised on 2018. Eosinophil pct 1.7 % [facility] Comment: Interpretive Data Percent cell count reference ranges are not reported, since discordance with absolute values may lead to misinterpretation of CBC data. Current Interpretive Data was last revised on 2018. Basophil pct 0.6 % [facility] Comment: Interpretive Data Percent cell count reference ranges are not reported, since discordance with absolute values may lead to misinterpretation of CBC data. Current Interpretive Data was last revised on 2018. Blood 11/18/2024 7:50 AM CHOPPING MACHINE OPERATOR 11/18/2024 7:56 AM CHOPPING MACHINE OPERATOR Wendy Adam MD LAB BLOOD ORDERABLES Final Result Performing Organization Address City/[facility]/ZIP Co de Phone Number CHARU HUSTON [address] [place] [address] * CBC with auto differential (11/18/2024 7:50 AM CHOPPING MACHINE OPERATOR) [facility] WBC 5.2 3.8 - 9.9 K/cumm Hgb 15.7 13.0 - 17.5 g/dL [facility] Hct 47.4 38.9 - 50.3 % [facility] Plt 182 150 - 400 K/cumm [facility] MPV 10.4 9.1 - 12.3 fL [facility] RBC 5.31 4.30 - 5.80 M/cumm [facility] MCV 89.3 81.3 - 96.4 fL [facility] CH MCH 29.6 27.1 - 33.3 pg [facility] MCHC 33.1 32.3 - 35.7 g/dL [facility] RDW CV 12.1 11.1 - 14.9 % [facility] RDW SD 39.6 35.7 - 48.1 fL [facility] NRBC abs 0.00 0.00 - 0.01 K/cumm [facility] Blood 11/18/2024 7:50 AM CHOPPING MACHINE OPERATOR 11/18/2024 7:56 AM CHOPPING MACHINE OPERATOR Narrative [facility] - 11/18/2024 8:12 AM CHOPPING MACHINE OPERATOR If most recent labs were drawn prior to 4 AM, draw only prior to initiating procedure. Wendy Adam MD LAB BLOOD ORDERABLES Final Result Performing Organization Address City/[facility]/ZIP Co de Phone Number CHARU HUSTON [address] Department [employer] [address] * (ABNORMAL) Basic metabolic panel (11/18/2024 7:50 AM CHOPPING MACHINE OPERATOR) [facility] Sodium 138 135 - 145 mmol/L Potassium, pl 4.2 3.3 - 4.9 mmol/L [facility] Chloride 100 97 - 110 mmol/L [facility] CO2 21(L) 22 - 32 mmol/L [facility] Anion gap 17(H) 2 - 15 mmol/L [facility] BUN 16 6 - 25 mg/dL [facility] Creatinine 0.78(L) 0.80 - 1.30 mg/dL [facility] Comment:Icteric sample, test results may be affected. Glucose 164 70 - 199 mg/dL [facility] Comment: Interpretive Data Fasting glucose >/= 126 mg/dl is diagnostic for diabetes. Fasting is defined as no caloric intake for at least 8 hours. Fasting glucose between 100 mg/dl to 125 mg/dl is diagnostic of prediabetes. In a patient with classic symptoms of hyperglycemia or hyperglycemic crisis, a random glucose >/= 200 mg/dl is diagnostic for diabetes. In the absence of unequivocal hyperglycemia, results should be confirmed by repeat testing. The classification and Diagnosis of Diabetes Diabetes Care 2021; 46: S19-S40. Current interpretive data was last revised 2022. Calcium 9.6 8.5 - 10.3 mg/dL [facility] Blood 11/18/2024 7:50 AM CHOPPING MACHINE OPERATOR 11/18/2024 7:56 AM CHOPPING MACHINE OPERATOR Wendy Adam MD LAB BLOOD ORDERABLES Final Result Performing Organization Address City/[facility] Co de Phone Number CHARU HUSTON [address] [place] [address] * POCT glucose (11/18/2024 7:07 AM CHOPPING MACHINE OPERATOR) Glucose, POC 167 70 - 199 mg/dL Blood 11/18/2024 7:07 AM CHOPPING MACHINE OPERATOR 11/18/2024 7:07 AM CHOPPING MACHINE OPERATOR Wendy Adam MD LAB POCT ORDERABLES - DEVICE Final Result Performing Organization Address City/[facility]/ZIP Co de Phone Number CHARU HUSTON [address] [facility] [place] [address] * POCT lipid panel (11/10/2024 2:22 PM CHOPPING MACHINE OPERATOR) Cholesterol, POC 115 mg/dL HDL, POC 35 mg/dL Triglycerides, POC 181 mg/dL LDL Cholesterol POC 43 mg/dL Chol/HDL Ratio, POC 1.2 Non-HDL Cholesterol, POC 79 mg/dL Cholesterol Total, POC 115 mg/dL Capillary blood 11/10/2024 2 :22 PM CHOPPING MACHINE OPERATOR Anisa Patrick NP POINT OF CARE TEST ORDERA BLES Final Result * Cardiology Document Scan (11/03/2024 4:45 PM CHOPPING MACHINE OPERATOR) Anatomical Region Laterality Modality Other Stephanie Mejia NP CV CARDIAC SERVICES PROCEDUR ES Final Result * SCAN - RADIOLOGY/IMAGING (11/03/2024) Anatomical Region Laterality Modality Other Wendy Adam MD Edit ed Result - Final * Cardiology Document Scan (11/03/2024) Anatomical Region Laterality Modality Other Wendy Adam MD CV CARDIAC SERVICES PROCEDURES Final Result * Cardiology Document Scan (11/02/2024 4:43 PM CHOPPING MACHINE OPERATOR) Anatomical Region Laterality Modality Other us Wendy Adam MD CV CARDIAC SERVICES PROCEDURES Final Result from Last 3 Months Insurance [employer] OOS [employer] Care Teams Sales Inspector Relationship Specialty Start Date End Date Lindsey Segura PA [address] [place] [address] PCP - General Physician Chainstitch Zipper Setter 11/10/24
--- OUTSIDE RECORDS SUMMARY | 2024-12-11 07:50 | XMS_ITS | Continuity of Care Document ---
Author Organization [facility] Address [address] [place] [address] [place] [address] Phone Care Team Providers Care Land Surveyor Name Role Phone Thomas Somers Unavailable Unavailable Procedures Procedure Date Office/outpatient Visit, Est Visual Field Examination(s) Eye Exam, New Patient Advance Directives Directive Yes / No Effective Date File Name No Information Encounters Encounter Description Practice Location Reason(s) For Visit Diagnoses Date Provider Providers Copied on Encounter Office/outpat ient Visit, Est [facility], [address] [place] [address] [address], [place], [place], [id number], [place] tel:[phone] [facility] No Information 7-200 8 Krishnasamy Thomas. [address] [place] [address], [address], [place]. tel:[phone] [facility], [address] [place] [address] [address], [place], [place], [id number], [place] tel:[phone] [facility] No Information 3-200 8 Krishnasamy Thomas. [address] [place] [address], [address], [place]. tel:[phone] Referring Provider: Thomas gordon, [address] [place] [address], [place], [address]. tel:[phone] [facility], [address] [place] [address] [address], [place], [place], [id number], [place] tel:[phone] [facility] No Information [address] Lizbet Guzman. [address] [facility] [place] [address], [place], [address], [place]. tel:[phone] Family History Family Member Type Diagnosis Age At Onset No Information Payers Payer name Insurance type Covered alliance party ID Authoriza tion(s) No Information Social History [...]
--- OUTSIDE RECORDS SUMMARY | 2024-12-11 07:50 | XMS_ITS | Referral Summary ---
Author Organization [facility] [address] [place] [address] 162 Address [address] [place] [address] Care Team Providers Care Short Order Cook Name Role Phone Lindsey Segura Primary Care Pr ovider Encounters Date Type Department Care Team Description 12/08/2024 8:00 AM POCKET STITCHER Office Visit [facility] Cardiology [address] [place] [address] Anisa Patrick NP Coronary artery disease of [place] artery of [place] heart with stable angina pectoris (HCC); Status post coronary angiogram; Hypertension associated with diabetes (HCC) 11/18/2024 8:30 AM POCKET STITCHER - 11/18/2024 10:00 AM POCKET STITCHER Surgery [facility] Cardiac Catheterization Lab [address] [place] [address] Wendy Adam MD LEFT HEART CATHETERIZATION WITH CORONARY ANGIOGRAPHY AND WITH OR WITHOUT LEFT VENTRICULOGRAM [id number] 11/18/2024 6:24 AM POCKET STITCHER - 11/18/2024 12:33 PM POCKET STITCHER Hospital Encounter [facility] Cardiac Catheterization Lab [address] [place] [address] Wendy Adam MD Coronary artery disease of [place] artery of [place] heart with stable angina pectoris (HCC) Discharge Disposition: Discharge to home or self care 11/10/2024 Orders Only [facility] Cardiology [address] [place] [phone] Wendy Adam MD 11/10/2024 Telephone [facility] Cardiology [address] [place] [address] Anisa Patrick NP 11/10/2024 2:30 PM POCKET STITCHER Office Visit [facility] Cardiology [address] [place] [address] [place] [phone] Anisa Patrick NP Chest pain, unspecified type; Coronary artery disease involving [place] coronary artery of [place] heart with angina pectoris (HCC); Lipid screening; Hospital discharge follow-up 11/06/2024 Telephone [facility] Cardiology [address] [place] [address] [place] [phone] Jose Luis Ashby MD 11/03/2024 Orders Only [facility] Health Information Management [address] [place] [address] Wendy Adam MD 10/29/2024 Telephone [facility] Cardiology [address] [place] [phone] Jose Luis Ashby MD 10/28/2024 Telephone [facility] Cardiology [address] [place] [address] [place] [phone] Jose Luis Ashby MD from Last 3 Months Allergies No known active allergies Medications metFORMIN [...] 80 mg tabletIndicatio ns:Coronary artery disease involving [place] coronary artery of [place] heart without angina pectoris Take 1 tablet by mouth nightly 90 tablet 3 02/24/20 24 Active ranolazine ER (RANEXA) 500 mg 12 hr tablet Take 1 tablet (500 mg total) by mouth 2 (two) times a day 180 tablet 1 08/07/20 24 Active ezetimibe (ZETIA) 10 mg tabletIndicatio ns:Coronary artery disease involving [place] coronary artery of [place] heart without angina pectoris Take 1 tablet [...] 25 mg tabletIndicatio ns:Coronary artery disease involving [place] coronary artery of [place] heart without angina pectoris TAKE 1 TABLET [...] artery disease of n ative artery of [place] heart with stable angina pectoris 01/11/2017 Overview (03/15/2017): Coronary artery disease involving [place] coronary artery of [place] heart with other form of angina pectoris Hypertension associated with diabetes 01/11/2017 Overview (03/15/2017): HTN (hypertension), benign Type 2 diabetes mellitus 01/11/2017 Overview (03/15/2017): DM type 2 with diabetic dyslipidemia Resolved Problems Problem Noted Date Diagnosed Date Resolved Date History of placement of sten t for coronary artery disease 08/30/2015 07/30/2023 Overview (01/24/2017): S/P coronary artery stent placement Social History Tobacco Use Types Packs/Day Years [...] on file Legal Sex Male 3:27 AM POCKET STITCHER Gender Identity Not on file Sexual Orientation Not on file Last Filed Vital Signs Vital Sign Reading Time Taken Comments Blood Pressure 114/80 12/08/2024 7:45 AM POCKET STITCHER Pulse 88 12/08/2024 7:45 AM POCKET STITCHER Temperature 37 C (98.6 F) 11/18/2024 7:15 AM POCKET STITCHER Respiratory Rate 18 11/18/2024 7:15 AM POCKET STITCHER Oxygen Saturation 98% 12/08/2024 7:45 AM POCKET STITCHER Inhaled Oxygen Concentration - - Weight 105.2 kg (232 lb) 12/08/2024 7:45 AM POCKET STITCHER Height 182.9 cm (6') 12/08/2024 7:45 AM POCKET STITCHER Body Mass Index 31.46 12/08/2024 7:45 AM POCKET STITCHER Plan of Treatment Not on file Medical Devices Implanted Type Area Mash Tub Cooker Device Identifier Shelf Expiration Date Model / Serial / Lot [employer] Angio-Seal Vip 6fr Closere Device [id number] - [id number] Implanted:Qty: 1 on 11/18/2024 by Wendy Adam MD at [facility] [employer] [id number] / / Procedures Procedure Name Priority Date/Time Associated Diagnosis Comments POCT GLUCOSE DEVICE Routine 11/18/2024 9 :22 AM POCKET STITCHER LEFT HEART CATHETERIZATION WITH CORONARY ANGIOGRAPHY AND WITH AND WITHOUT LEFT VENTRICULOGRAM Routine 11/18/2024 9:00 AM POCKET STITCHER Coronary artery disease of [place] artery of [place] heart with stable angina pectoris (HCC) MODERATE SEDATION FIRST 15MIN 5+ YEAR [id number] 11/18/2024 8:13 AM POCKET STITCHER Coronary artery disease of [place] artery of [place] heart with stable angina pectoris (HCC) MODERATE SEDATION SAME MD MONTOYA ADDL 15 MIN [id number] 11/18/2024 8:13 AM POCKET STITCHER Coronary artery disease of [place] artery of [place] heart with stable angina pectoris (HCC) EGFR STAT 11/18/2024 7:50 AM POCKET STITCHER DIFFERENTIAL AUTO STAT 11/18/2024 7:5 0 AM POCKET STITCHER BASIC METABOLIC PANEL STAT 11/18/2024 7:50 AM POCKET STITCHER CBC WITH AUTO DIFFERENTIAL STAT 11/18/2024 7:50 AM POCKET STITCHER POCT GLUCOSE DEVICE Routine 11/18/2024 7 :07 AM POCKET STITCHER POCT LIPID PANEL Routine 11/10/2024 2:22 PM POCKET STITCHER Lipid screening CARDIOLOGY DOCUMENT SCAN Routine 11/03/2024 4:45 PM POCKET STITCHER CARDIOLOGY DOCUMENT SCAN 11/03/2024 SCAN - RADIOLOGY/IMAGING 11/03/2024 CARDIOLOGY DOCUMENT SCAN Routine 11/02/2024 4:43 PM POCKET STITCHER from Last 3 Months Results * POCT glucose (11/18/2024 9:22 AM POCKET STITCHER) Glucose, POC 175 70 - 199 mg/dL Blood 11/18/2024 9:22 AM POCKET STITCHER 11/18/2024 9:22 AM POCKET STITCHER us Wendy Adam MD LAB POCT ORDERABLES - DEVICE Final Result [facility] [address] Department [place] [address] * LEFT HEART CATHETERIZATION WITH CORONARY ANGIOGRAPHY AND WITH AND WITHOUT LEFT VENTRICULOGRAM (11/18/2024 9:00 AM POCKET STITCHER) Anatomical Region Laterality Modality X-Ray Angiograph y Narrative 11/18/2024 9:14 AM POCKET STITCHER CARDIAC CATHETERIZATION REPORT Girish Perez IP ENCOUNTER: @CSN@ Date of Procedure: 11/18/2024 BIRTHDATE: 1970 ASBESTOS SHINGLE INSPECTOR: Wendy Adam MD PREPROCEDURE DIAGNOSES: Girish Perez is a 53 y.o. male here for cardiac catheterization. Past medical history of coronary artery disease with stents to proximal, distal left circumflex artery and RCA that were patent on a cardiac catheterization done in 2021. Also history of hypertension, diabetes, PVCs. He was recently admitted to [facility] earlier this month for right upper quadrant [...] Right common femoral arterial angiogram. Deployment 6 [place]ian Angio-Seal. FINDINGS: Left main without significant disease. [...] informed consent patient was brought into the laboratory animal facility supervisor where she was draped and prepped in the usual manner. Moderate sedation was given and the right groin infiltrated using 1% lidocaine. Five Malian sheath was obtained using micropuncture needle and modified Seldinger technique. Selective left coronary angiogram was done using JL4 catheter with the tip of the catheter placed in the left main coronary artery. Selective right coronary angiogram was done using JR4 catheter with the tip of the catheter placed in the right coronary artery. After that 5 Malian pigtail catheter was advanced across aortic valve into the left ventricular with measurement of LVEDP and measure gradient across aortic valve. LV angiogram was done as well. Right common femoral arterial angiogram was done and deployed 6 Malian Angio-Seal. Access site: Right common femoral artery. Hemostasis: 6 Malian Angio-Seal. CONCLUSIONS Patent stents proximal, distal left circumflex artery and patent stent mid RCA. PLAN Continue risk factor modification for CAD us Wendy Adam MD CV CARDIAC CATH PROC EDURES Final Result * eGFR (11/18/2024 7:50 AM POCKET STITCHER) eGFR >90 >=60 mL/min/1. 73 m2 Comment: [...] last reviewed 2021. Blood 11/18/2024 7:50 AM POCKET STITCHER 11/18/2024 7:56 AM POCKET STITCHER us Wendy Adam MD LAB BLOOD ORDERABLES Final Result [facility] [id number] Department [place] [address] * Differential, auto (11/18/2024 7:50 AM POCKET STITCHER) Neutrophil abs 3.0 1.5 - 6.5 K/cumm Imm gran abs 0.0 0.0 - 0.1 K/cumm [facility] Lymphocyte abs 1.5 0.8 - 3.3 K/cumm [facility] Monocyte abs 0.6 0.2 - 0.8 K/cumm [facility] Eosinophil abs 0.1 0.0 - 0.5 K/cumm [facility] Basophil abs 0.0 0.0 - 0.1 K/cumm [facility] Neutrophil pct 57.5 % [facility] Comment: Interpretive Data Percent cell count reference ranges are not reported, since discordance with absolute values may lead to misinterpretation of CBC data. Current Interpretive Data was last revised on 2018. Imm gran pct 0.6 % [facility] Comment: Interpretive Data Percent cell count reference ranges are not reported, since discordance with absolute values may lead to misinterpretation of CBC data. Current Interpretive Data was last revised on 2018. Lymphocyte pct 28.1 % [facility] Comment: Interpretive Data Percent cell count reference ranges are not reported, since discordance with absolute values may lead to misinterpretation of CBC data. Current Interpretive Data was last revised on 2018. Monocyte pct 11.5 % [facility] Comment: Interpretive Data Percent cell count reference ranges are not reported, since discordance with absolute values may lead to misinterpretation of CBC data. Current Interpretive Data was last revised on 2018. Eosinophil pct 1.7 % [facility] Comment: Interpretive Data Percent cell count reference ranges are not reported, since discordance with absolute values may lead to misinterpretation of CBC data. Current Interpretive Data was last revised on 2018. Basophil pct 0.6 % [facility] Comment: Interpretive Data Percent cell count reference ranges are not reported, since discordance with absolute values may lead to misinterpretation of CBC data. Current Interpretive Data was last revised on 2018. Blood 11/18/2024 7:50 AM POCKET STITCHER 11/18/2024 7:56 AM POCKET STITCHER us Wendy Adam MD LAB BLOOD ORDERABLES Final Result [facility] [id number] Department [place] [address] * CBC with auto differential (11/18/2024 7:50 AM POCKET STITCHER) WBC 5.2 3.8 - 9.9 K/cumm Hgb 15.7 13.0 - 17.5 g/dL [facility] Hct 47.4 38.9 - 50.3 % [facility] Plt 182 150 - 400 K/cumm [facility] MPV 10.4 9.1 - 12.3 fL [facility] RBC 5.31 4.30 - 5.80 M/cumm [facility] MCV 89.3 81.3 - 96.4 fL [facility] MCH 29.6 27.1 - 33.3 pg [facility] MCHC 33.1 32.3 - 35.7 g/dL [facility] RDW CV 12.1 11.1 - 14.9 % [facility] RDW SD 39.6 35.7 - 48.1 fL [facility] NRBC abs 0.00 0.00 - 0.01 K/cumm [facility] Blood 11/18/2024 7:50 AM POCKET STITCHER 11/18/2024 7:56 AM POCKET STITCHER Narrative [facility] - 11/18/2024 8:12 AM POCKET STITCHER If most recent labs were drawn prior to 4 AM, draw only prior to initiating procedure. Wendy Adam MD LAB BLOOD ORDERABLES Final Result [facility] [id number] [employer] [place] [address] * (ABNORMAL) Basic metabolic panel (11/18/2024 7:50 AM POCKET STITCHER) Sodium 138 135 - 145 mmol/L Potassium, pl 4.2 3.3 - 4.9 mmol/L [facility] Chloride 100 97 - 110 mmol/L [facility] CO2 21(L) 22 - 32 mmol/L [facility] Anion gap 17(H) 2 - 15 mmol/L [facility] BUN 16 6 - 25 mg/dL [facility] Creatinine 0.78(L) 0.80 - 1.30 mg/dL [facility] Comment:Icteric sample, test results may be affected. Glucose 164 70 - 199 mg/dL [facility] Comment: Interpretive Data Fasting glucose >/= 126 [...] classification and Diagnosis of Diabetes Diabetes Care 202; 46: S19-S40. Current interpretive data was last revised 2022. Calcium 9.6 8.5 - 10.3 mg/dL [facility] Blood 11/18/2024 7:50 AM POCKET STITCHER 11/18/2024 7:56 AM POCKET STITCHER Wendy Adam MD LAB BLOOD ORDERABLES Final Result Performing Organization Address City/[facility]/ZIP Co de Phone Number [facility] [address] Department [place] [address] * POCT glucose (11/18/2024 7:07 AM POCKET STITCHER) Glucose, POC 167 70 - 199 mg/dL Blood 11/18/2024 7:07 AM POCKET STITCHER 11/18/2024 7:07 AM POCKET STITCHER Result [facility] Wendy Adam MD LAB POCT ORDERABLES - DEVICE Final Result [facility] [id number] [address] Department [place] [address] * POCT lipid panel (11/10/2024 2:22 PM POCKET STITCHER) Cholesterol, POC 115 mg/dL HDL, POC 35 mg/dL Triglycerides, POC 181 mg/dL LDL Cholesterol POC 43 mg/dL Chol/HDL Ratio, POC 1.2 Non-HDL Cholesterol, POC 79 mg/dL Cholesterol Total, POC 115 mg/dL Capillary blood 11/10/2024 2 :22 PM POCKET STITCHER Result [facility] Anisa Patrick NP POINT OF CARE TEST ORDERA BLES Final Result * Cardiology Document Scan (11/03/2024 4:45 PM POCKET STITCHER) Anatomical Region Laterality Modality Other Stephanie Mejia NP CV CARDIAC SERVICES PROCEDUR ES Final Result * SCAN - RADIOLOGY/IMAGING (11/03/2024) Anatomical Region Laterality Modality Other us Wendy Adam MD Edit ed Result - Final * Cardiology Document Scan (11/03/2024) Anatomical Region Laterality Modality Other us Wendy Adam MD CV CARDIAC SERVICES PROCEDURES Final Result * Cardiology Document Scan (11/02/2024 4:43 PM POCKET STITCHER) Anatomical Region Laterality Modality Other Wendy Adam MD CV CARDIAC SERVICES PROCEDURES Final Result from Last 3 Months Insurance [employer] Care Teams Short Order Cook Relationship Specialty Start Date End Date Lindsey Segura PA [address] [place] [address] PCP - General Physician Professional Nursing Assistant 11/10/24
--- OUTSIDE RECORDS SUMMARY | 2024-12-11 07:50 | XMS_ITS | Encounter Summary ---
Author Organization [facility] Address [address] [place] [address] Care Team Providers Care Card Setter Name Role Phone Jemal Laurent MD Primary Care Provider [phone] Jemal Laurent MD Primary Care Provider [phone] Sara Yang MD Primary Care Provider + Lindsey Segura Primary Care Pr ovider Encounter Details Date Type Department Care Team (Late st Contact Info) Description 01/11/2017 Orders Only [facility] ProviderBrandin MD [address] [place] [address] Social History Tobacco Use Types Packs/Day Years Used Date Smoking Tobacco: Former Cigarettes Q uit: 10/21/2009 Alcohol Use Standard Drinks/Week Comments No 0 (1 standard drink = 0.6 oz pur e alcohol) Sex and Gender Information Value Date Recorded Sex Assigned at Not on file Legal Sex Male 3:27 AM BOWLING BALL ENGRAVER Gender Identity Not on file Sexual Orientation Not on file documented as of this encounter Plan of Treatment Not on file documented as of this encounter Procedures Procedure Name Priority Date/Time Associated Diagnosis Comments CARDIOLOGY REPORT 01/11/2017 documented in this encounter Results * CARDIOLOGY REPORT (01/11/2017) Anatomical Region Laterality Modality Other Narrative 01/11/2017 Ordered by an unspecified provider. Historical Provider CV CARDIAC SERVICES RAJWINDER SCHWAB Final Result documented in this encounter Visit Diagnoses Not on filedocumented in this encounter Care Teams Card Setter Relationship Specialty Start Date End Date Jemal Laurent MD [address] [place] [address] PCP - General 01/18/17 04/28/19 Jemal Laurent MD [address] [place] [address] PCP - General 08/30/15 01/17/17 Sara Yang MD [address] [place] [address] PCP - General Family Medicine 04/29/19 11/09/24 Lindsey Segura PA [address] [place] [address] PCP - General Physician Pet Care Attendant 11/10/24 documented as of this encounter
== END 2024-12-11 07:44 | disposition home or self-care (01) ==
PROVIDERS: PCP Physician Assistant; Visit Provider Physician Assistant
DX: R11.0 Nausea (principal)
CPT/HCPCS: 78264; A9541

== ENCOUNTER 2025-07-08 14:48 | Outpatient (CLI) | payer BC, SELFPAY ==
--- NOTE | ~2025-07-08 | CT_ITS ---
Girish Perez EXAMINATION: CT abdomen pelvis w con COMPARISON: None HISTORY: RLQ pain TECHNIQUE: Axial images were obtained through the abdomen, pelvis post administration of IV contrast. Oral contrast was also administered. Coronal reconstruction images were obtained from the axial views. CT scan performed using dose optimization techniques including the following automated exposure control; adjustment of mA and/or kV; use of iterative reconstruction technique. Automatic exposure control was used to reduce radiation dose. Permanent radiation dose record is archived to PACS. FINDINGS: CT abdomen: LUNG BASES: The lung bases are clear. The visualized portions of the heart and pericardium are unremarkable. LIVER: Mild hepatic steatosis. Portal vein patent. No intrahepatic biliary duct dilatation. SPLEEN: Unremarkable. KIDNEYS: Right Kidney: Unremarkable. No calculi. No hydronephrosis. Left Kidney: Unremarkable. No calculi. No hydronephrosis ADRENAL GLANDS: Unremarkable. PANCREAS: Unremarkable. GALLBLADDER/BILIARY: Cholelithiasis. STOMACH AND ESOPHAGUS: Visualized stomach and esophagus within normal limits. BOWEL/MESENTERY: Moderate fecal content, no colitis or diverticulitis. Appendix normal. Mesentery normal. There are some minimally dilated small bowel loops the largest measuring 3.5 cm. ADENOPATHY/RETROPERITONEUM: No lymphadenopathy. AORTA/VASCULATURE: Normal caliber aorta. FREE FLUID OR FREE AIR: None. CT pelvis: SOLID ORGANS/REPRODUCTIVE: Unremarkable. BLADDER: Within normal limits. OSSEOUS STRUCTURES: No acute osseous abnormality.No suspicious lesions. OVERLYING SOFT TISSUES: Diastases noted of the abdominal wall. Small fat- containing left inguinal hernia. IMPRESSION: 1. Minimally dilated small bowel loops, early obstruction not excluded. Follow- up suggested to assess as clinically warranted Reviewed, dictated and finalized at location A.
--- OUTSIDE RECORDS SUMMARY | 2025-07-08 14:52 | XMS_ITS | Clinical Summary ---
Author Organization [facility] Care Team Providers Care Actuarial Assistant Name Role Phone Unavailable Primary Care Provider Unavailabl e Social History Tobacco Use Types Packs/Day Years Used Date Smoking Tobacco: Never Assessed Sex and Gender Information Value Date Recorded Sex Assigned at Not on file Legal Sex Male 2:00 PM FARMHAND Gender Identity Not on file Sexual Orientation Not on file Plan of Treatment Health Maintenance Due Date Last Done Comments Hepatitis C Virus (HCV) Screening 1970 TdaP Immunization 1970 Hepatitis B Immunization (1 of 3 - 19+ 3-dose series) 1987 Cologuard 2013 Colonoscopy 2013 Colorectal Cancer Screening 2013 Immunochemical Fecal Occult Blood 2013 Pneumococcal Immunization (5 0+ years) (1 of 1 - PCV) 2018 Zoster Immunization (1 of 2) 2018 SARS-COV-2 Immunization ( - 2023- season) 2024 Influenza Immunization (#1) 2025 Respiratory Syncytial Virus (RSV) Immunization (Adult) (1 - 1-dose 75+ series) 2043 Human Papillomavirus (HPV) Immunization Aged Out No longer eligible b ased on patient's age to complete this topic Meningococcal Immunization (ACWY) Aged Out No longer eligible based on patient's age to complete this topic Rotavirus Immunization Aged Out No lo nger eligible based on patient's age to complete this topic
--- OUTSIDE RECORDS SUMMARY | 2025-07-08 14:52 | XMS_ITS | Clinical Summary ---
Author Organization [facility] [place] [address] Address [address] [place] [address] Care Team Providers Care Analyst Competitive Intelligence Name Role Phone Lindsey Segura Primary Care Pr ovider Allergies No known active allergies Medications metFORMIN (GLUCOPHAGE) 1,000 mg tablet take 1 tablet by oral route 2 times every day with morning and evening meals 0 0 5 Active escitalopram (LEXAPRO) 20 mg tablet take 1 tablet by oral route every day 0 0 5 Active dapagliflozin (FARXIGA) 10 mg tablet take 1 tablet by oral route every day in the morning 0 0 7 Active levothyroxine sodium (TIROSINT) 125 mcg capsule take 1 capsule by oral route every day 0 0 7 Active aspirin 81 mg enteric coated tablet Take 1 tablet (81 mg total) by mouth daily Active INSULIN ADMIN SUPPLIES SUBQ Inject under the skin Active nitroglycerin (NITROSTAT) 0.[address] 1 tablet (0.4 mg total) under the tongue every 5 (five) minutes as needed for chest pain 25 tablet 3 5 Active carvediloL (COREG) 6.25 mg tabletIndicati ons:Hypertensi on associated with diabetes (HCC) Take 1 tablet (6.25 mg total) by mouth 2 (two) times a day with meals 180 tablet 3 5 026 Active lisinopriL (PRINIVIL,ZEST RIL) 20 mg tabletIndicati ons:Hypertensi on associated with diabetes (HCC) Take 1 tablet (20 mg total) by mouth daily 90 tablet 3 5 026 Active clopidogreL (PLAVIX) 75 mg tablet Take 1 tablet by mouth once daily 90 tablet 3 5 Active ezetimibe (ZETIA) 10 mg tabletIndicati ons: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 Take 1 tablet (10 mg total) by mouth daily 90 tablet 2 5 026 Active atorvastatin (LIPITOR) 80 mg tabletIndicati ons: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 Take 1 tablet by mouth nightly 90 tablet 2 5 Active ranolazine ER (RANEXA) 500 mg 12 hr tablet Take 1 tablet by mouth twice daily 180 tablet 5 Active LANTUS 100 unit/mL (3 mL) pen for injection INJECT 12 UNITS SUBCUTANEOUSLY ONCE DAILY Active FIASP 100 unit/mL (3 mL) pen for injection INJECT 15 TO 25 UNITS SUBCUTANEOUSLY THREE TIMES DAILY BEFORE MEAL(S) PENDING GLUCOSE READING 5 Active Active Problems Problem Noted Date Diagnosed Date Morbid (severe) obesity due to excess calories 1 PVC's (premature ventricular contractions) 01/25 DASILVA (dyspnea on exertion) 11/04/2019 S/P coronary artery stent placement 10/24/2018 Mixed diabetic hyperlipidemi a associated with type 2 diabetes mellitus 03/13/2018 Palpitations 01/11/2017 Overview (03/15/2017): Palpitations 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 01/11/2017 Overview (03/15/2017): Coronary artery disease involving navajo coronary artery of navajo heart with other form of angina pectoris [...] Encounters Date Type Department Care Team Description 06/25/2025 8:30 AM CDT Office Visit [facility] Card[facility] [address] [place] [address] Anisa Patrick NP 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; Hypertension associated with diabetes (HCC); Mixed diabetic hyperlipidemia associated with type 2 diabetes mellitus (HCC) 06/22/2025 Telephone [facility] Cardiology [address] [place] [address] Luiza Goyal MA from Last 3 Months Surgical History Surgery Date Site/Laterality Comments ANGIOPLASTY HERNIA REPAIR Medical History Medical History Date Comments Type 2 diabetes mellitus Diabete s type 2 Hypertension Hypertension Chronic coronary artery [...] on file Legal 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 Gender Identity Not on file Sexual Orientation Not on file Obstetrics History Last Filed Vital Signs Vital Sign Reading Time Taken Comments Blood Pressure 118/68 06/25/2025 8:31 AM CDT Pulse 73 06/25/2025 8:31 AM CDT Temperature 37 C (98.6 F) 11/18/2024 7:15 AM RAZOR SHARPENER Respiratory Rate 16 06/25/2025 8:31 AM CDT Oxygen Saturation 97% 06/25/2025 8:31 AM CDT Inhaled Oxygen Concentration - - Weight 113.4 kg (250 lb) 06/25/2025 8:31 AM CDT Height 182.9 cm (6') 06/25/2025 8:31 AM CDT Body Mass Index 33.91 06/25/2025 8:31 AM CDT Plan of Treatment Health Maintenance Due Date Last Done Comments Albumin Creatinine Ratio, Urine 1968 Colon Cancer Screening-Colonoscopy 1968 Depression Screening 1968 Hemoglobin A1C 1968 Hepatitis C Screening 1968 Prostate Cancer Screening-PSA 1968 Dilated Eye Exam 1968 Foot Exam 1968 Hepatitis B Screening 1986 Regular Well Visit/Exam 18-64 1986 Pneumococcal vaccine <65 (1 of 2 - PCV) 1987 Zoster Vaccine (1 of 2) 2018 Covid-19 Vaccine (4 - 2024-2 6 season) 2025 09/15/2021, 02/18/2021, 01/15/2021 Influenza Vaccine (#1) 2025 eGFR 11/18/2025 11/18/2024 Lipid Panel 06/25/2026 06/25/2025, 10/22, 04/19/2023, Additional history exists DTaP/Tdap/Td Vaccine (2 - Td or Tdap) 02/17/2035 02/17/2025 Medical Devices Implanted Type Area Faculty Member Device Identifier Shelf Expiration Date Model / Serial / Lot [employer] Angio-Seal Vip 6fr Closere Device [id number] - [id number] Implanted:Qty: 1 on 11/18/2024 by [id number] / / Procedures Procedure Name Priority Date/Time Associated Diagnosis Comments POCT LIPID PANEL Routine 06/25/2025 8:25 AM CDT Mixed diabetic hyperlipidemia associated with type 2 diabetes mellitus (HCC) EGFR STAT 11/18/2024 7:50 AM RAZOR SHARPENER from Last 3 Months or Most Recently Relevant to Health Maintenance Results * (ABNORMAL) POCT lipid panel (06/25/2025 8:25 AM CDT) Cholesterol, POC 122 <200 MG/DL HDL, POC 30(A) >=40 mg/dL Triglycerides, POC 156(A) <=149 mg/dL LDL Cholesterol POC 61 <=129 mg/dL Chol/HDL Ratio, POC 2.0 NONE Non-HDL Cholesterol, POC 92 NONE mg/dL Cholesterol Total, POC 122 30 - 199 mg/dL Capillary blood 06/25/2025 8 :25 AM CDT Anisa Patrick NP POINT OF CARE TEST ORDERA BLES Final Result * eGFR (11/18/2024 7:50 AM RAZOR SHARPENER) eGFR >90 >=60 mL/min/1. 73 m2 Comment: [...] last reviewed 2021. Blood 11/18/2024 7:50 AM RAZOR SHARPENER 11/18/2024 7:56 AM RAZOR SHARPENER us Wendy Adam MD LAB BLOOD ORDERABLES Final Result [facility] [id number] Department [place] [address] from Last 3 Months or Most Recently Relevant to Health Maintenance Insurance [employer] Care Teams Analyst Competitive Intelligence Relationship Specialty Start Date End Date Lindsey Segura PA [address] [place] [address] PCP - General Physician Oracle Adf Consultant 11/10/24
--- OUTSIDE RECORDS SUMMARY | 2025-07-08 14:52 | XMS_ITS | Encounter Summary ---
Author Organization [facility] Address [address] [place] [address] Care Team Providers Care Farm Equipment Engineer Name Role Phone Jemal Laurent MD Primary Care Provider [phone] Jemal Laurent MD Primary Care Provider [phone] Sara Yang MD Primary Care Provider + Lindsey Segura Primary Care Pr ovider Encounter Details Date Type Department Care Team (Late st Contact Info) Description 01/11/2017 Orders Only [facility] ProviderBrandin MD [address] [place] [id number] Social History Tobacco Use Types Packs/Day Years Used Date Smoking Tobacco: Former Cigarettes Q uit: 10/21/2009 Alcohol Use Standard Drinks/Week Comments No 0 (1 standard drink = 0.6 oz pur e alcohol) Sex and Gender Information Value Date Recorded Sex Assigned at Not on file 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
[2025-07-08 15:07] LABS: Estimated Glomerular Filt Rate > 60
== END 2025-07-08 14:49 | disposition home or self-care (01) ==
PROVIDERS: PCP Physician Assistant; Visit Provider Physician Assistant
DX: R10.31 Right lower quadrant pain (principal)
CPT/HCPCS: 74177; Q9967